=== PATIENT | female | born 1975 | race Caucasian/White ===

== ENCOUNTER 2020-09-19 09:43 | Outpatient (NON) | payer OTHER, SELFPAY ==
[2020-09-19 23:47] LABS: SARS-CoV-2 RNA PCR Positive
== END 2020-09-19 09:44 ==
LOC: ANHCOVIDDT 09:46
PROVIDERS: PCP Family Medicine; Visit Provider Family Medicine
DX: U07.1 COVID-19 (principal)
CPT/HCPCS: 87635; C9803; U0003

== ENCOUNTER 2020-10-21 16:09 | Emergency (ER) | payer OTHER, SELFPAY ==
[2020-10-21] VITALS (9 sets, daily range): BP systolic 139–147; BP diastolic 74–97; PULSE 69–87; RESP 10–26; TEMP 37.3; O2SAT 95–100
--- NOTE | ~2020-10-21 | CT_ITS ---
EXAMINATION: CT abdomen pelvis wo con EXAM DATE: 10/21/2020 17:11 INDICATION: Left flank pain. TECHNIQUE: Spiral CT of the abdomen and pelvis was performed without contrast. Axial, coronal and sag ittal images were reviewed. The dose-length product (DLP) for this examination was 924.47 mGy-cm. T he exposure was tailored according to patient size (auto mA exposure control), and iterative reconstr uction (ASIR) was used as additional dose reduction technique. Comparison is made to prior examinatio n from 05/06/2018. FINDINGS: There is a 4 mm stone at the left ureterovesicular junction with mild left-sided hydrourete ronephrosis. No other genitourinary calcifications. The uterus is not identified and has likely been surgically resected. The bladder is undistended at time of imaging. The liver, spleen, adrenal gla nds and pancreas are unremarkable. Gallbladder is unremarkable. No biliary obstruction. There is n o retroperitoneal or pelvic lymphadenopathy. The appendix is normal. There is small sliding gastroesophageal hiatal hernia. There is expected am ount of colonic stool. No free intraperitoneal gas. The heart is normal in size. There are no pe ricardial or pleural effusions. The lung bases are unremarkable. There are no osteoblastic or osteo lytic lesions identified. L5-S1 anterior, interbody fusion. IMPRESSION: Left UVJ 4 mm stone, mild hydroureteronephrosis. Urologist consultants would appreciate K UB as baseline for follow-up, treatment planning. Reviewed, dictated and finalized at location A. ER COOK IMPRESSION: Left UVJ 4 mm stone, mild hydroureteronephrosis. Urologist consulta nts would appreciate KUB as baseline for follow-up, treatment planning.
--- NOTE | 2020-10-21 16:40 | PC.NURSE ---
patient brought back to ED room 6 with c/o left flank pain for 1 hours. see initial assessment. alert. oriented. sitting on stretcher. in room. denies known fever at home. denies N/V/D. did have some dry heaves per patient. assessments done. history reviewed. this RN attempted IV access x 1 without success. patient and aware will have another RN attempt. call light in reach. on Bp and O2 monitors.
[2020-10-21] MEDS: PROCHLORPERAZINE EDISYLATE 10 MG/2 ML VIAL IV PUSH (17:01)
[2020-10-21] MEDS: FAMOTIDINE 20 MG/2 ML VIAL IV PUSH (17:01)
[2020-10-21] MEDS: SODIUM CHLORIDE 0.9% IV 1,000 ML 999 ML IV CONT (17:01)
[2020-10-21 17:04] LABS: Basophils Absolute Auto 0.1 K/mm3 (0.0-0.1); Basophils Percent Auto 0.6 % (0.2-1.2); Eosinophils Absolute Auto 0.1 K/mm3 (0-0.3); Hemoglobin 14.9 g/dL (12.0-15.0); Immature Granulocyte Absolute 0.02 K/mm3 (0.00-0.031); Immature Granulocyte Percent A 0.2 % (0-0.5); Lymphocytes Absolute Auto 2.14 K/mm3 (0.9-3.2); Lymphocytes Percent Auto 24.3 % (18.3-44.2); Mean Corpuscular HGB Conc 33.9 g/dl (32-36); Mean Corpuscular Hemoglobin 29.8 pg (26-34); Mean Platelet Volume 11.9 fl (7.4-10.4); Monocytes Absolute Auto 0.7 K/mm3 (0.1-0.6); Monocytes Percent Auto 8.2 % (2.6-8.5); Neutrophils Absolute Auto 5.8 K/mm3 (1.3-6.7); Neutrophils Percent Auto 65.7 % (45.5-73.1); Platelet Count Result 267 k/mm3 (150-375); White Blood Count 8.8 K/mm3 (4.5-10.0)
--- NOTE | 2020-10-21 17:14 | ED.ABDPAIN ---
HPI - Abdominal Pain General Chief Complaint: Abdominal Pain <Thom Shah PA-C - Last Filed: 10/21/20 18:52> Stated Complaint: lt flank and back pain <Thom Shah PA-C - Last Filed: 10/21/20 18:52> Time Seen by Provider: 10/21/20 16:20 <Thom Shah PA-C - Last Filed: 10/21/20 18:52> Source: patient <Thom Shah PA-C - Last Filed: 10/21/20 18:52> Mode of arrival: ambulatory <Thom Shah PA-C - Last Filed: 10/21/20 18:52> Limitations: no limitations <Thom Shah PA-C - Last Filed: 10/21/20 18:52> History of Present Illness HPI narrative: Patient is a 45-year-old female who presents to emergency department for evaluation of acute onset of left flank pain patient notes that she earlier in the week and had a similar occurrence that resolved spontaneously patient notes sharp stabbing pain nothing is made it better or worse patient notes dry retching patient has not taken anything for her symptoms patient denies sick contacts or other symptoms and on arrival appears uncomfortable but in no distress <Thom Shah PA-C - Last Filed: 10/21/20 18:52> Related Data Allergies/Adverse Reactions: Allergies Allergy/AdvReac Type Severity Reaction Status Date / Time Penicillins Allergy Unknown Hives Verified 10/21/20 16:15 codeine AdvReac Unknown Palpitation Verified 10/21/20 16:15 s ondansetron AdvReac Unknown violent Verified 10/21/20 16:15 vomiting <Thom Shah PA-C - Last Filed: 10/21/20 18:52> Review of Systems Review of Systems: All systems reviewed & are unremarkable except as noted in HPI and below <Thom Shah PA-C - Last Filed: 10/21/20 18:52> [facility] Past Medical History Medical History: Medical History Fibromyalgia <Thom Shah PA-C - Last Filed: 10/21/20 18:52> Family History Family History: Family History (Updated 12/08/17 @ 18:12 by DOCTOR UNKNOWN) Father Hypertension <Thom Shah PA-C - Last Filed: 10/21/20 18:52> Social History Social History: Social History Smoking status: Former smoker Smoking end date: 11/02/11 Alcohol intake: current Gender identity (if verbalized by the patient): Female <Thom Shah PA-C - Last Filed: 10/21/20 18:52> Exam Narrative: Exam Narrative: GENERAL: Well-appearing, obese, uncomfortable and in no acute distress. HEAD: Normocephalic, atraumatic. EYES: PERRLA and EOMI. ENT: Nares clear, no rhinorrhea or epistaxis. Mucous membranes moist. CHEST: Clear to auscultation. No respiratory distress. No wheezes rales or rhonchi HEART: Regular rate and rhythm. No murmur heard. Normal peripheral pulses. ABDOMEN: Soft, left upper quadrant abdominal tenderness, nondistended EXTREMITIES: Normal range of motion. No edema. SKIN: Warm, dry, no rash. NEURO: No focal deficits. Alert and oriented x3. PSYCH: Normal mood and affect. <Thom Shah PA-C - Last Filed: 10/21/20 18:52> Course Course Emergency Course: Patient presented with flank pain found to have 4 mm UVJ stone pain well controlled afebrile nontoxic-appearing no distress no high risk changes in the blood work felt appropriate for outpatient reevaluation by primary care and urology. Patient agrees with this plan and has also been given reasons to return ABCs stable vital signs intact <Thom Shah PA-C - Last Filed: 10/21/20 18:52> Vital Signs Vital signs: Vital Signs Temperature 99.1 F 10/21/20 16:11 Pulse Rate 87 10/21/20 16:11 Respiratory Rate 20 10/21/20 16:11 Blood Pressure 147/97 H 10/21/20 16:11 Pulse Oximetry 100 10/21/20 16:11 Temperature 99.1 F 10/21/20 16:11 Pulse Rate 69 10/21/20 17:18 Respiratory Rate 10 L 10/21/20 17:18 Blood Pressure 144/74 H 10/21/20 17:18 Pulse Oximetry 98 10/21/20 17:18
[2020-10-21 17:16] LABS: Alanine Aminotransferase 17 U/L (4-35); Albumin Level 4.4 g/dL (3.5-5.1); Alkaline Phosphatase 97 U/L (38-126); Anion Gap 10 mmol/L (8-16); Aspartate Amino Transferase 19 U/L (14-36); Bilirubin,Total 0.8 mg/dL (0.2-1.3); Blood Urea Nitrogen 10 mg/dL (7-17); Calcium 9.9 mg/dL (8.4-10.2); Carbon Dioxide 25 mmol/L (22-30); Chloride 104 mmol/L (98-107); Estimated CRCL calculation 86 ml/min; Estimated Glomerular Filt Rate > 60; Glucose 101 mg/dL (65-105); Lipase 294 U/L (23-300); Potassium 4.1 mmol/L (3.4-5.0); Sodium 139 mmol/L (137-145)
--- NOTE | 2020-10-21 17:19 | PC.NURSE ---
all tests resulted. waiting for further orders from provider. will ask patient for urine specimen.
--- NOTE | 2020-10-21 17:55 | PC.NURSE ---
patient reconnected to monitor. IVF and IV tylenol restarted. patient has #22 in her left wrist. not able to give fluids or meds fast.
[2020-10-21 18:11] LABS: Add Urine Microscopic? YES; Appearance Urine Cloudy (Clear); Bacteria Urine Trace /hpf; Bilirubin Urine Negative (Negative); Blood Urine 2+ (Negative); Calcium Oxalate Crystals Urine Present /hpf; Color Urine Yellow (Yellow); Glucose Urine UA Negative (Negative); Ketones Urine Negative (Negative); Leukocyte Esterase Ur Negative LEU/UL (Negative); Mucus Urine Rare /lpf; Nitrate Urine Negative (Negative); Protein Urine 1+ mg/dL (Negative); RBC Urine 51-75 /hpf (0-2); Specific Grav Ur 1.024 (1.001-1.035); Squamous Epithelial Cell Urine Many /hpf (Few); Urobilinogen Urine Negative mg/dL (<2.0); WBC Urine 0-3 /hpf
[2020-10-21] MEDS: KETOROLAC 30 MG/ML VIAL (*BKC) IV PUSH (18:42)
== END 2020-10-21 19:22 | disposition home or self-care (01) ==
PROVIDERS: Emergency Medicine Emergency Medical Services; Emergency Provider General Practice; PCP Family Medicine
DX: N13.2 Hydronephrosis with renal and ureteral calculous obstruction (principal); M79.7 Fibromyalgia; Z87.891 Personal history of nicotine dependence
CPT/HCPCS: 36415; 74176; 80053; 81001; 83690; 85025; 96361; 96365; 96375; 99284; J0131; J0780; J1885; J7030

== ENCOUNTER 2021-03-07 08:49 | Outpatient (CLI) | payer OTHER, SELFPAY ==
--- NOTE | ~2021-03-07 | MMUS_ITS ---
EXAMINATION: MM diagnostic jolynn BI w guanako, US breast RT limited HISTORY: Follow-up right breast asymmetry TECHNIQUE: Additional 3-D tomosynthesis images of the right breast were performed and synthetic 2-D i mages were generated. CAD analysis was submitted and interpreted. High resolution Limited right breas t ultrasound was performed. COMPARISON: Comparison to multiple prior studies sequentially, with oldest reviewed study dated 09/03. BREAST PARENCHYMAL COMPOSITION: Breast composed of scattered areas of fibroglandular density. FINDINGS: MAMMOGRAPHIC FINDINGS: There is a focal asymmetry in the upper outer quadrant of the right breast anteriorly. The left breas t is stable without evidence for malignancy. ULTRASOUND: Limited right breast ultrasound: At 11:00, 2 cm from the nipple there is a 5 mm cyst corresponding to the asymmetry seen on mammography. No suspicious masses to suggest malignancy. IMPRESSION: 1. No evidence for malignancy in the right breast. 2. Routine yearly screening mammogram and regular clinical breast examination are recommended. BI-RADS Category 2: Benign finding(s). Reviewed, dictated and finalized at location A. IMPRESSION: 1. No evidence for malignancy in the right breast. 2. Routine yearly screening mammogram and regular clinical breast examination a re recommended. BI-RADS Category 2: Benign finding(s).
== END 2021-03-07 08:50 | disposition home or self-care (01) ==
PROVIDERS: PCP Family Medicine; Visit Provider Family Medicine
DX: N64.4 Mastodynia (principal)
CPT/HCPCS: 76642; 77062; 77066; G0279

== ENCOUNTER 2023-02-26 09:05 | Outpatient (CLI) | payer BC, SELFPAY ==
--- NOTE | ~2023-02-26 | MM_ITS ---
EXAMINATION: MM screening jolynn BI w guanako HISTORY: Screening mammogram TECHNIQUE: Craniocaudal and mediolateral oblique 3-D tomosynthesis images were obtained and synthetic 2-D images were generated. CAD analysis was submitted and interpreted. COMPARISON: 03/07/2021 diagnostic bilateral mammogram and limited right breast ultrasound examination 12/18/2017 right diagnostic mammogram and limited right breast ultrasound examination 12/15/2017 bilateral screening mammogram BREAST PARENCHYMAL COMPOSITION: There are scattered areas of fibroglandular density. FINDINGS: Occasional up to 4.9 mm circumscribed opacities in the left breast, particularly in the jaz tral and lateral lower left breast, measuring 5 mm or less, some with halo sign, benign in appearance . There is no evidence of suspicious mass, calcification, or architectural distortion to suggest jannie gnancy in either breast. There has been no suspicious interval change. IMPRESSION: 1. No mammographic evidence of malignancy. 2. Recommend routine screening mammography in one year. BI-RADS Category 2: Benign finding(s). Reviewed, dictated and finalized at location A.
== END 2023-02-26 09:06 | disposition home or self-care (01) ==
LOC: ANHIMG 09:09
PROVIDERS: PCP Nurse Practitioner Family; Visit Provider Nurse Practitioner Family
DX: Z12.31 Encounter for screening mammogram for malignant neoplasm of breast (principal)
CPT/HCPCS: 77063; 77067

== ENCOUNTER 2023-04-15 16:57 | Outpatient (CLI) | payer BC, SELFPAY ==
--- NOTE | ~2023-04-15 | US_ITS ---
EXAMINATION: US carotid duplex BI DATE: 04/15/2023 INDICATION: Dizziness and giddiness TECHNIQUE: Grayscale, color Doppler, and pulsed Doppler images of the cervical carotid arteries were obtained. The degree of vessel stenosis is placed in one of the following categories: normal, <50%, 5 0-69%, >=70% but less than near-occlusion, near-occlusion, or total occlusion. Note that percent sten osis relative to normal distal artery lumen diameter is indirectly measured from velocity measurement s as described by Taqueria, et al. Radiology 2003; 229:340-346. Notes: Normal: Peak systolic velocity <125 centimeters/sec and no plaque <50%. Peak systolic velocity <125 ( EDV <40; ICA/CCA PSV ratio <2.0; used these factors only a tandem lesions or low cardiac output or co ntralateral disease) 50-69 %: PSV 125-230 (EDV 40-100; ratio 2-4) >= 70% but less than near occlusion: PSV greater than 230 (EDV > 100; ratio> 4.0) Near Occlusion: PSV that is variable; markedly narrowed lumen Occlusion: Absent flow on color/spectral Doppler and no lumen on mott scale. COMPARISON: None. FINDINGS: RIGHT: The right common carotid artery (CCA) peak systolic velocity (PSV) is 115 cm/s. The right internal ca rotid artery (ICA) PSV is 80 cm/s. The right ICA end-diastolic velocity (EDV) is 34 cm/s. The right I CA/CCA PSV ratio is 0.7. The external carotid artery (ECA) PSV is 95 cm/s. There is antegrade flow in the right vertebral artery. LEFT: The left CCA PSV is 120 cm/s. The left ICA PSV is 65 cm/s. The left ICA EDV is 29 cm/s. The left ICA/ CCA PSV ratio is 0.5. The ECA PSV is 84 cm/s. There is antegrade flow in the left vertebral artery. IMPRESSION: 1. Less than 50% stenosis in the right internal carotid artery by sonographic criteria. 2. Less than 50% stenosis in the left internal carotid artery by sonographic criteria. Reviewed, dictated and finalized at location L. IMPRESSION: 1. Less than 50% stenosis in the right internal carotid artery by sonographic junior faria. 2. Less than 50% stenosis in the left internal carotid artery by sonographic vishal ellsworth.
== END 2023-04-15 16:58 | disposition home or self-care (01) ==
LOC: ANHIMG 16:58
PROVIDERS: PCP Nurse Practitioner Family; Visit Provider Nurse Practitioner Family
DX: R42 Dizziness and giddiness (principal); R00.2 Palpitations; I65.23 Occlusion and stenosis of bilateral carotid arteries
CPT/HCPCS: 93880

== ENCOUNTER 2023-12-17 06:37 | Outpatient (CLI) | payer BC, SELFPAY ==
--- NOTE | ~2023-12-17 | MR_ITS ---
EXAMINATION: MR brain/brain stem wo/w con DATE: 12/17/2023 07:44 INDICATION: Left facial numbness. Left upper extremity numbness. Migraine headache. TECHNIQUE: Magnetic resonance imaging (MRI) of the brain and brainstem was performed without and with 20 mL MultiHance intravenous contrast. COMPARISON: Head CT 12/17/2023 FINDINGS: There is no intracranial hemorrhage, acute infarction, or abnormal intracranial mass lesion . The ventricles are normal in size. The paranasal sinuses are clear. The orbits are normal. There is a trace right mastoid effusion. IMPRESSION: 1. Normal brain. Reviewed, dictated and finalized at location A. MBLER BODY IMPRESSION: 1. Normal brain.
--- NOTE | ~2023-12-17 | CT_ITS ---
EXAMINATION: CTA brain carotid DATE: 12/17/2023 08:07 INDICATION: Lightheadedness. Left facial numbness. Migraine headache. TECHNIQUE: Computed tomographic angiography (CTA) of the head was performed without and with 100 mL O mnipaque-350 intravenous contrast. CTA of the neck was performed with intravenous contrast. Automated exposure control and iterative reconstruction technique were employed. The dose-length product was 1 621.28 mGy-cm. Maximum intensity projection and volume rendered 3D-reconstructions were created by bill neville technologist on a separate workstation. COMPARISON: Brain MRI 12/17/2023 FINDINGS: HEAD CTA: There is no intracranial hemorrhage, acute infarction, or abnormal intracranial mass lesion . The ventricles are normal in size. There is mild mucosal thickening in the paranasal sinuses. The m astoid air cells are normal. The orbits are normal. Left vertebral artery is dominant. There is no si gnificant stenosis of basilar artery or the posterior cerebral arteries. The posterior communicating arteries are normal. There is no significant stenosis of the intracranial internal carotid arteries o r anterior or middle cerebral arteries. Anterior communicating artery is normal. There is no aneurysm . NECK CTA: There are no pathologically enlarged lymph nodes. There is no significant stenosis of the v ertebral arteries. There is no visible plaque in the proximal internal carotid arteries. There is 0% stenosis of the proximal right internal carotid artery relative to normal distal artery lumen diamete r (NASCET criteria). There is 0% stenosis of the proximal left internal carotid artery relative to no rmal distal artery lumen diameter. There are changes of anterior fusion procedure at C5-C6. There is mild cervical spondylosis. IMPRESSION: 1. Normal brain. No aneurysm or significant intracranial arterial stenosis. 3. 0% stenosis of the proximal internal carotid arteries relative to normal distal artery lumen diame ters (NASCET criteria). Reviewed, dictated and finalized at location A. INSPECTOR IMPRESSION: 1. Normal brain. No aneurysm or significant intracranial arterial stenosis. 3. 0% stenosis of the proximal internal carotid arteries relative to normal dis alfonzo artery lumen diameters (NASCET criteria).
== END 2023-12-17 06:38 | disposition home or self-care (01) ==
PROVIDERS: PCP Nurse Practitioner Family; Visit Provider Student in an Organized Health Care Education/Training Program
DX: R20.0 Anesthesia of skin (principal)
CPT/HCPCS: 70496; 70498; 70553; A9577; Q9967

== ENCOUNTER 2024-02-08 11:38 | Outpatient (CLI) | payer BC, SELFPAY ==
--- NOTE | ~2024-02-08 | XR_ITS ---
Cervical Spine: AP, lateral, open-mouth views Clinical History: Pain Findings: The normal lordotic curve is maintained. There is anterior fusion from C5 to C6. Remaining disc spaces are preserved. Pre-vertebral soft tissues are unremarkable. Impression: No acute abnormality evident. Anterior fusion from C5 to C6. Reviewed, dictated and finalized at [facility]. Impression: No acute abnormality evident. Anterior fusion from C5 to C6.
--- NOTE | ~2024-02-08 | XR_ITS ---
Left Shoulder Technique: AP and scapular Y views were obtained. Clinical History: Pain Findings: No fracture or dislocation is seen. Osseous alignment is anatomic. The glenohumeral and acr omioclavicular joint spaces are preserved. Soft tissues are unremarkable. Impression: Unremarkable left shoulder radiographs. Reviewed, dictated and finalized at [facility]. Impression: Unremarkable left shoulder radiographs.
== END 2024-02-08 11:39 | disposition home or self-care (01) ==
LOC: ANHIMG 11:42
PROVIDERS: PCP Nurse Practitioner Family; Visit Provider Nurse Practitioner Family
DX: M54.2 Cervicalgia (principal); M25.512 Pain in left shoulder; Z98.1 Arthrodesis status
CPT/HCPCS: 72040; 73030

== ENCOUNTER 2024-03-02 06:32 | Outpatient (CLI) | payer BC, SELFPAY ==
--- NOTE | ~2024-03-02 | MR_ITS ---
MRI of the left shoulder Technique: Axial proton-density fat-sat images, coronal proton density fat-sat and T2 fat-sat images, and sagittal T1-weighted and T2 fat-sat images were acquired. Clinical History: Pain Findings: There is tkeg-jh-ccamhlwc AC joint degenerative change, mild bony productive change. No sig nificant subcarinal spur. Coracoclavicular, coracoacromial, and coracohumeral ligaments are intact. Supraspinatus and infraspinatus tendons are intact, without partial or full-thickness tear. Subscapul justine tendon is intact. Tendon of the long head of the biceps is intact. No labral tear identified. Inferior glenohumeral ligament is intact. There is minimal glenohumeral joint effusion. No significan t degenerative change identified. No fluid distention of the subacromial/subdeltoid bursa. No muscle atrophy or edema. Impression: Cvfl-en-ovdzsvwc AC joint degenerative change. No other significant abnormality identified. Reviewed, dictated and finalized at [facility]. Impression: Heil-oy-ljvwewml AC joint degenerative change. No other significant abnormality identified.
== END 2024-03-02 06:33 | disposition home or self-care (01) ==
PROVIDERS: PCP Nurse Practitioner Family; Visit Provider Nurse Practitioner Family
DX: R20.0 Anesthesia of skin (principal); M19.012 Primary osteoarthritis, left shoulder
CPT/HCPCS: 73221

== ENCOUNTER 2024-04-19 15:26 | Outpatient (CLI) | payer BC, SELFPAY ==
--- NOTE | ~2024-04-19 | MM_ITS ---
EXAMINATION: MM screening jolynn BI w guanako HISTORY: Screening TECHNIQUE: Craniocaudal and mediolateral oblique 3-D tomosynthesis images were obtained and synthetic 2-D images were generated. CAD analysis was submitted and interpreted. COMPARISON: Comparison to multiple prior studies sequentially, with oldest reviewed study dated 12/15. BREAST PARENCHYMAL COMPOSITION: Not dense: There are scattered areas of fibroglandular density. FINDINGS: There is no evidence of suspicious mass, calcification, or architectural distortion to sugg est malignancy in either breast. There has been no suspicious interval change. IMPRESSION: 1. No mammographic evidence of malignancy. 2. Recommend routine screening mammography in one year. BI-RADS Category 1: Negative Reviewed, dictated and finalized at location B.
== END 2024-04-19 15:27 ==
PROVIDERS: PCP Nurse Practitioner Family; Visit Provider Nurse Practitioner Family
DX: Z12.31 Encounter for screening mammogram for malignant neoplasm of breast (principal)
CPT/HCPCS: 77063; 77067

== ENCOUNTER 2024-05-20 09:35 | Outpatient (CLI) | payer BC, SELFPAY ==
--- NOTE | 2024-05-20 12:40 | NEURO_ITS ---
Clinical note: Patient is 48 years old with history of numbness in the left hand since February 2024. There is history of surgery on cervical spine 2015. No history of diabetes mellitus or recent major trauma. On a brief neurological examination no focal muscle wasting or fasciculations were seen in the upper limbs. Summary of findings: 1. Left median and ulnar palmar and digital and radial sensory distal latencies amplitudes and conduction velocities were within normal limits. Left ulnar dorsal sensory distal latency and amplitude within normal limits. 2. Left median motor distal latency amplitude and conduction velocity within normal limits. 3. Left ulnar motor distal latency amplitude and conduction velocity within acceptable normal limits. No focal slowing was seen across the elbow. Ulnar motor inching study was also performed which did not show any focal segmental slowing. 4. Left median and ulnar motor studies were also performed while recording over 2nd lumbrical and interossei where the distal latencies are within acceptable normal limits. 5. EMG and nerve conduction study of the left upper limb were performed using a monopolar needle electrode. No denervation changes were seen In the distribution of C5-T1 cervical roots. Motor unit amplitude and conduction velocity within normal limits. Impression: EMG and nerve conduction study of the left upper limb were within acceptable normal limits. Efren David MD, FAAN, FAANEM Neurology / Electrodiagnostic Medicine Nerve Conduction Studies Motor Nerve Results Latency Amplitude Segment Distance CV CV Site (ms) Norm (mV) Norm (mm) (m/s) Norm Left Median (APB) Motor Wrist 3.3 < 4.2 7.7 > 5.0 Elbow 7.1 - 7.6 - Elbow-Wrist 220 58 > 50 Left Ulnar (ADM) Motor Wrist 2.8 < 4.2 7.0 > 3.0 Bel Elbow 6.2 - 6.3 - Bel Elbow-Wrist 185 54 > 53 Abv Elbow 7.6 - 6.4 - Abv Elbow-Bel Elbow 80 57 > 52 Left Ulnar-Inching (ADM) Motor Wrist 2.8 < 4.2 7.0 > 3.0 Sensory Nerve Results Latency (Peak) Amplitude (P-P) Segment Distance CV CV Site (ms) Norm (?V) Norm (mm) (m/s) Norm Left Dorsal Ulnar Cutaneous Sensory Wrist-Dorsum 5th MC 2.2 - 34 - Wrist-Dorsum 5th MC 80 36 - Left Median DigIII Sensory Wrist-Dig III 3.1 - 135 - Left Median-Ulnar Palmar Sensory Median Palm-Wrist 1.75 < 2.4 72 - Palm-Wrist 80 46 - Ulnar Palm-Wrist 1.75 < 2.4 25 - Palm-Wrist 80 46 - Left Radial Sensory Forearm-Wrist 1.73 < 3.1 34 - Forearm-Wrist 100 58 - Left Ulnar Sensory Wrist-Dig V 3.1 < 3.7 56 > 15 Wrist-Dig V 135 44 > 38 Inter-Nerve Comparisons Nerve 1 Value 1 Nerve 2 Value 2 Parameter Result Normal Sensory Sites L Median Palm-Wrist 1.8 ms L Ulnar Palm-Wrist 1.8 ms Peak Lat Diff 0.00 ms <0.30 Nerve Conduction Studies Stim Site NR Onset (ms) O-P Amp (mV) Site1 Site2 Delta-0 (ms) Dist (mm) Praful (m/s) Left General Motor (Lum 2/Int 2) Median 2.8 3.8 Ulnar 2.7 7.6 Electromyography Side Muscle Nerve Ins Act Fibs Psw Amp Dur Recrt Comment Left Deltoid Axillary Nml Nml Nml Nml Nml Nml Left Biceps Musculocut Nml Nml Nml Nml Nml Nml Left Triceps Radial Nml Nml Nml Nml Nml Nml Left Ext Digitorum Radial (Post Int) Nml Nml Nml Nml Nml Nml Left ExtCarUln Radial (Post Int) Nml Nml Nml Nml Nml Nml Left Ext Indicis Radial (Post Int) Nml Nml Nml Nml Nml Nml Left FlexPolLong Median (Ant Int
== END 2024-05-20 09:36 | disposition home or self-care (01) ==
PROVIDERS: PCP Nurse Practitioner Family; Visit Provider Psychiatry & Neurology Neurology
DX: R20.2 Paresthesia of skin (principal)
CPT/HCPCS: 95886; 95910

== ENCOUNTER 2024-05-20 09:36 | Outpatient (CLI) | payer BC, SELFPAY ==
--- NOTE | ~2024-05-20 | MR_ITS ---
MRI of the cervical spine Clinical History: Paresthesia Technique: Axial T2-weighted and gradient images, and sagittal T1-weighted, T2-weighted, and STIR leti ges were acquired. Findings: There is straightening of normal cervical lordosis. No fracture or subluxation seen. There is interbody/anterior fusion from C5 to C6 with associated susceptibility artifact. No other bone mar row signal abnormality seen. At C2-C3, there is no disc bulge or herniation. No spinal canal stenosis. There is mild facet hypertr ophy is probable minimal bilateral neural foraminal narrowing. At C3-C4, there is minimal disc osteophyte complex. No spinal canal stenosis or cord compression. Pos sible minimal bilateral neural foraminal narrowing. At C4-C5, there is minimal disc osteophyte complex. No spinal canal stenosis, cord compression, or de finite neural foraminal narrowing. At C5-C6, there is mild osteophyte posteriorly, no daniel canal stenosis or cord compression. Left danielle ral foramen is narrowed. Right neural foramen probably preserved. At C6-C7, there is no disc bulge or herniation. There is left foraminal osteophyte, with left neural foraminal narrowing. Right neural foramen preserved. No central canal stenosis or cord compression. No abnormal signal seen in the spinal cord. Paravertebral soft tissues are unremarkable. Impression: Degenerative changes, as detailed above, overall mild in degree. Probable left neural foraminal narro wing at C6-C7. Probable minimal bilateral neural foraminal narrowing at C2-C3 and C3-C4. Probable lef t neural foraminal narrowing at C5-C6. Reviewed, dictated and finalized at [facility]. Impression: Degenerative changes, as detailed above, overall mild in degree. Probable left neural foraminal narrowing at C6-C7. Probable minimal bilateral neural foramina l narrowing at C2-C3 and C3-C4. Probable left neural foraminal narrowing at C5- C6.
== END 2024-05-20 09:37 | disposition home or self-care (01) ==
PROVIDERS: PCP Nurse Practitioner Family; Visit Provider Nurse Practitioner Family
DX: M54.12 Radiculopathy, cervical region (principal); R20.0 Anesthesia of skin; R20.2 Paresthesia of skin; M50.30 Other cervical disc degeneration, unspecified cervical region
CPT/HCPCS: 72141

== ENCOUNTER 2024-09-02 14:34 | Outpatient (CLI) | payer BC, SELFPAY ==
--- NOTE | ~2024-09-02 | XR_ITS ---
XR cervical spine 4-5V DATE: 09/02/2024 15:03 INDICATION: Cervical radiculopathy TECHNIQUE: COMPARISON: None FINDINGS: There is straightening of the cervical spine. Approximately 1.4 mm anterolisthesis at C2-3, 1.0 mm anterolisthesis at C3-4 and 1.6 mm anterolisthes is at C4-5 in flexion, reduced at all 3 levels in extension. Status post anterior interbody surgical fusion at C5-6. C1 and C2 are normally aligned and the odontoid process is intact. No fracture or dislocation or lock ed facet or prevertebral soft tissue swelling. IMPRESSION: Minimal anterolisthesis at C2-3, C3-4 and C4-5 in flexion, reduced in extension Status post anterior interbody surgical fusion at C5-6 Reviewed, dictated and finalized at location A.
== END 2024-09-02 14:35 | disposition home or self-care (01) ==
PROVIDERS: PCP Nurse Practitioner Family; Visit Provider Neurological Surgery
DX: M54.12 Radiculopathy, cervical region (principal); Z98.1 Arthrodesis status
CPT/HCPCS: 72050

== ENCOUNTER 2024-10-13 08:38 | Outpatient (CLI) | payer BC, SELFPAY ==
--- NOTE | ~2024-10-13 | US_ITS ---
Limited Abdominal Sonogram: Real-time sonographic imaging of the right upper quadrant was performed. Clinical History: Right upper quadrant pain Findings: The liver appears normal with no evidence of mass lesion or bile duct dilatation. Main por alfonzo vein demonstrates normal direction of flow. The gallbladder is well distended, and appears normal with no evidence of gallstone or wall thickening. The common bile duct measures 4 mm. The visualize d pancreas, aorta, and IVC are unremarkable. Impression: No significant abnormality seen. Reviewed, dictated and finalized at location M. LER AND TEST PREPARER Impression: No significant abnormality seen.
== END 2024-10-13 08:39 | disposition home or self-care (01) ==
LOC: GOSHIMG 08:38
PROVIDERS: PCP Nurse Practitioner Family; Visit Provider Nurse Practitioner Family
DX: R10.11 Right upper quadrant pain (principal)
CPT/HCPCS: 76705

== ENCOUNTER 2024-11-04 07:01 | Outpatient (CLI) | payer BC, SELFPAY ==
--- NOTE | ~2024-11-04 | NM_ITS ---
EXAMINATION: NM hepatobiliary w pharm DATE: 11/04/2024 09:28 INDICATION: Epigastric abdominal pain. COMPARISON: CT abdomen and pelvis 10/21/2020 TECHNIQUE: 4.9 mCi Tc-99m mebrofenin (Choletec) was administered intravenously. Scintigraphic images of the abdomen were obtained for one hour. Then, 2.2 mcg sincalide (Kinevac) IV was administered, an d imaging was continued for 30 minutes. FINDINGS: There is normal clearance of radiotracer from the blood pool. There is homogeneous tracer u ptake by the liver. Activity progresses to the bowel and gallbladder. Gallbladder ejection fraction (GBEF) was 61%. Note that most patients with gallbladder dysfunction have GBEF < 35%, which overlaps with the broad normal range of 10-90%. IMPRESSION: 1. Normal hepatobiliary scintigraphy. Reviewed, dictated and finalized at location A. EMBROIDERER
== END 2024-11-04 07:02 | disposition home or self-care (01) ==
PROVIDERS: PCP Nurse Practitioner Family; Visit Provider Surgery
DX: R10.13 Epigastric pain (principal)
CPT/HCPCS: 78227; A9537; J2805

== ENCOUNTER 2024-11-14 08:01 | Outpatient (CLI) | payer BC, SELFPAY ==
--- NOTE | ~2024-11-14 | XR_ITS ---
EXAMINATION: XR UGIAC wo kub DATE: 11/14/2024 08:44 INDICATION: Epigastric abdominal pain. TECHNIQUE: The patient drank thick barium, gas-producing crystals, and thin barium. Fluoroscopy of th e esophagus, stomach, and proximal small bowel was performed. Fluoroscopy exposure time was 0.6 minut es. The total number of images was 280. Total dose-area product was 1.876 Gy-cm^2. COMPARISON: CT abdomen and pelvis 10/21/2020 FINDINGS: There is no mass or stricture of the esophagus. Esophageal motility is normal. There is a s mall sliding hiatal hernia. There was gastroesophageal reflux with provocative maneuvers. The stomach and proximal small bowel show normal folding patterns. IMPRESSION: 1. Small sliding hiatal hernia. 2. Gastroesophageal reflux with provocative maneuvers. Reviewed, dictated and finalized at location [] SIT DRIVER
== END 2024-11-14 08:02 | disposition home or self-care (01) ==
PROVIDERS: PCP Nurse Practitioner Family; Visit Provider Surgery
DX: R10.13 Epigastric pain (principal); K44.9 Diaphragmatic hernia without obstruction or gangrene; K21.9 Gastro-esophageal reflux disease without esophagitis
CPT/HCPCS: 74246

== ENCOUNTER 2025-01-20 12:14 | Outpatient (CLI) | payer BC, SELFPAY ==
--- NOTE | ~2025-01-20 | XR_ITS ---
XR chest 2V Ordering provider: Zachary Melara MD History: 49 years Female with . K44.9 - Diaphragmatic hernia without obstruction or gangrene . Comparison: August FINDINGS: MEDIASTINUM: The cardiac silhouette is not enlarged. LUNGS: No infiltrates, effusions or pneumothorax. OTHER: No free air under the diaphragm. IMPRESSION: No acute cardiopulmonary pathology. Reviewed, dictated and finalized at location A.
--- NOTE | 2025-01-20 12:22 | ECG_ITS ---
Test Date: 2025-01-20 13:01:40 Measurements Intervals [place] Rate: 62 P: -12 IA: 168 QRS: 7 QRSD: 87 T: 0 QT: 404 QTc: 413 Interpretive Statements SINUS RHYTHM LOW QRS VOLTAGE IN PRECORDIAL LEADS [QRS DEFLECTION < 1.0 mV IN CHEST LEADS] No previous ECG available for comparison Electronically Signed On 01-20-2025 18:37:11 CDT by Ella Oliver M.D.
--- OUTSIDE RECORDS SUMMARY | 2025-01-20 13:01 | XMS_ITS | Clinical Summary ---
Author Organization [facility] Address [address] [place] [address] Care Team Providers Care Superintendent General Name Role Phone Nancy Baker NP Primary Care Provider [phone] Allergies Active Allergy Reactions Criticality Noted Date Comments Codeine Palpitations Low 11/23/2024 Penicillins Hives Medium 11/23/2024 Ondansetron Vomiting Low 11/23/2024 Medications citalopram (CeleXA) 20 mg tablet Take 1.5 tablets (30 mg total) by mouth daily 5 Active Aimovig Autoinjector 140 mg/mL auto-injector ADMINISTER 1 ML UNDER THE SKIN MONTHLY 5 Active gabapentin (NEURONTIN) 300 mg capsule Take 1 capsule (300 mg total) by mouth 2 (two) times a day [address] (PROTONIX) 40 mg EC tablet Take 1 tablet (40 mg total) by mouth 2 (two) times a day 4 Active Encounters Date Type Department Care Team Description 11/30/2024 12:15 PM PROGRAMMER ANALYST CONSULTANT - 11/30/2024 11:59 PM PROGRAMMER ANALYST CONSULTANT Hospital Encounter [facility] [place] [address] [address] Hiatal hernia Discharge Disposition: Discharge to home or self care 11/23/2024 Telephone [facility] [place] [address] [address] Sonya Ramirez RN from Last 3 Months Surgical History Surgery Date Site/Laterality Comments COLONOSCOPY UPPER GASTROINTESTINAL ENDOSCOPY HYSTERECTOMY SECTION SPINAL FUSION x 2 TONSILECTOMY, ADENOIDECTOMY, BILATERAL MYRINGOTOMY AND TUBES PLANTAR FASCIA SURGERY Medical History Medical History Date Comments GERD (gastroesophageal reflux disease) Colon polyp Irritable bowel syndrome Fibromyalgia Depression Hiatal hernia Social History Tobacco Use Types Packs/Day Years Used Date Smoking Tobacco: Former Cigarettes Tobacco Cessation:Counseling Given: Not Answered Personal Safety Answer Date Recorded Have you ever been in or are you currently in a harmful physical or emotional relationship or is someone making you feel afraid or unsafe? Denies 11/30/2024 Comments Unknown Sex and Gender Information Value Date Recorded Sex Assigned at Not on file Legal Sex Female 1:47 PM PROGRAMMER ANALYST CONSULTANT Gender Identity Not on file Sexual Orientation Not on file Obstetrics History Last Filed Vital Signs Vital Sign Reading Time Taken Comments Blood Pressure 151/77 11/30/2024 12:54 PM PROGRAMMER ANALYST CONSULTANT Pulse 76 11/30/2024 12:54 PM PROGRAMMER ANALYST CONSULTANT Temperature - - Respiratory Rate 20 11/30/2024 12:54 PM PROGRAMMER ANALYST CONSULTANT Oxygen Saturation - - Inhaled Oxygen Concentration - - Weight 113.4 kg (250 lb) 11/30/2024 12:54 PM PROGRAMMER ANALYST CONSULTANT Height 167.6 cm (5' 6 ) 11/30/2024 12:54 PM PROGRAMMER ANALYST CONSULTANT Body Mass Index 40.35 11/30/2024 12:54 PM PROGRAMMER ANALYST CONSULTANT Plan of Treatment Health Maintenance Due Date Last Done Comments Breast Cancer Screening-Mammogram 1974 Colon Cancer Screening-Colonoscopy 1974 Depression Screening 1974 Hepatitis C Screening 1974 DTaP/Tdap/Td Vaccine (1 - Tdap) 1985 Hepatitis B Screening 1992 Regular Well Visit/Exam 18-64 1992 Covid-19 Vaccine ( - 2023-2 5 season) 2024 12/28/2021, 02/01/2021, 01/11/2021 Influenza Vaccine (#1) 2024 Zoster Vaccine (1 of 2) 2024 Pneumococcal vaccine <65 Aged Out No longer eligible based on patient's age to complete this topic Procedures Procedure Name Priority Date/Time Associated Diagnosis Comments HIGH RESOLUTION ESOPHAGEAL MOTILITY (MANOMETRY) Routine 11/30/2024 2:14 PM PROGRAMMER ANALYST CONSULTANT Hiatal hernia from Last 3 Months Results * High resolution esophageal motility (manometry) - (11/30/2024 2:14 PM PROGRAMMER ANALYST CONSULTANT) Anatomical Region Laterality Modality Other Zachary Melara MD GI LAB PROCEDURE ORDERABLES F inal Result from Last 3 Months Insurance [employer] ACCESS [employer] Care Teams Superintendent General Relationship Specialty Start Date End Date Nancy Baker NP [address] [place] [id number] PCP - General Nurse Practitioner 11/30/24
--- OUTSIDE RECORDS SUMMARY | 2025-01-20 13:01 | XMS_ITS | Referral Summary ---
Author Organization [facility] Address [address] [place] [address] Care Team Providers Care Oncology Nurse Navigator Name Role Phone Nancy Baker NP Primary Care Provider [phone] Encounters Date Type Department Care Team Description 11/30/2024 12:15 PM COLLAR STITCHER - 11/30/2024 11:59 PM COLLAR STITCHER Hospital Encounter [facility] [address] [address] Hiatal hernia Discharge Disposition: Discharge to home or self care 11/23/2024 Telephone [facility] [place] [phone] [phone] Sonya Ramierz RN from Last 3 Months Allergies Active Allergy Reactions Criticality Noted Date [...] 2 (two) times a day 4 Active Social History Tobacco Use Types Packs/Day Years [...] on file Legal Sex Female 1:47 PM COLLAR STITCHER Gender Identity Not on file Sexual Orientation Not on file Last Filed Vital Signs Vital Sign Reading Time Taken Comments Blood Pressure 151/77 11/30/2024 12:54 PM COLLAR STITCHER Pulse 76 11/30/2024 12:54 PM COLLAR STITCHER Temperature - - Respiratory Rate 20 11/30/2024 12:54 PM COLLAR STITCHER Oxygen Saturation - - Inhaled Oxygen Concentration - - Weight 113.4 kg (250 lb) 11/30/2024 12:54 PM COLLAR STITCHER Height 167.6 cm (5' 6 ) 11/30/2024 12:54 PM COLLAR STITCHER Body Mass Index 40.35 11/30/2024 12:54 PM COLLAR STITCHER Plan of Treatment Not on file Procedures Procedure Name Priority Date/Time Associated Diagnosis Comments HIGH RESOLUTION ESOPHAGEAL MOTILITY (MANOMETRY) Routine 11/30/2024 2:14 PM COLLAR STITCHER Hiatal hernia from Last 3 Months Results * High resolution esophageal motility (manometry) - (11/30/2024 2:14 PM COLLAR STITCHER) Anatomical Region Laterality Modality Other Zachary Melara MD GI LAB PROCEDURE ORDERABLES F inal Result from Last 3 Months Insurance [employer] ACC[employer] ACCESS Care Teams Oncology Nurse Navigator Relationship Specialty Start Date End Date Nancy Baker NP [address] [place] [id number] PCP - General Nurse Practitioner 11/30/24
--- OUTSIDE RECORDS SUMMARY | 2025-01-20 13:01 | XMS_ITS | Clinical Summary ---
Author Organization [facility] Address [facility] [place] [address] Care Team Providers Care Aerospace Quality Engineer Name Role Phone Nancy Baker PACKAGE DELIVERY ROOM SERVICE RUNNER Primary Care Provider Allergies Active Allergy Reactions Criticality Noted Date Comments Codeine Palpitations Low 07/10/2021 Ondansetron Vomiting 12/30/2018 Penicillins Rash Medium 12/30/2018 Medications cyanocobalamin 1000 MCG/ML injection INJECT 1 ML IN THE MUSCLE EVERY 2 WEEKS 06/12/2021 Active pantoprazole EC 40 MG tablet Take 40 mg by mouth every morning. 06/04/2021 Active Family History Relation Status Comments Father Alive Mother Alive Social History Tobacco Use Types Packs/Day Years Used Date Smoking Tobacco: Never Smokeless Tobacco: Never Alcohol Use Standard Drinks/Week Comments Never 0 (1 standard drink = 0.6 oz pur e alcohol) Comments Unknown Sex and Gender Information Value Date Recorded Sex Assigned at Not on file Legal Sex Female 9:52 AM CDT Gender Identity Not on file Sexual Orientation Not on file Last Filed Vital Signs Vital Sign Reading Time Taken Comments Blood Pressure 126/87 07/15/2021 2:10 PM CDT Pulse 70 07/15/2021 2:10 PM CDT Temperature 36.4 C (97.6 F) 07/15/2021 1:53 PM CDT Respiratory Rate 13 07/15/2021 2:10 PM CDT Oxygen Saturation 98% 07/15/2021 2:10 PM CDT Inhaled Oxygen Concentration - - Weight 113.4 kg (250 lb) 07/10/2021 12:09 PM CDT Height 167.6 cm (5' 6 ) 07/10/2021 12:09 PM CDT Body Mass Index 40.35 07/10/2021 12:09 PM CDT Plan of Treatment Health Maintenance Due Date Last Done Comments Annual Physical 1977 Hepatitis C 1992 DTaP, Tdap and Td Vaccines ( 1 - Tdap) 1993 Hepatitis B Vaccines (1 of 3 - 19+ 3-dose series) 1993 Mammogram Screening 2014 COVID-19 Vaccine (3 - 2023-2 5 season) 2024 02/01/2021, 01/11/2021 Influenza Adult (#1) 2024 Zoster Vaccines (1 of 2) 2024 Colorectal Cancer Screening Colonoscopy (10 Years) 07/15/2031 07/15/2021, 07/15/2021 Meningococcal B Vaccine Aged Out No l onger eligible based on patient's age to complete this topic Meningococcal Vaccine Aged Out No karey patrick eligible based on patient's age to complete this topic Pneumococcal Vaccine: Pediatrics (0 to 5 Years) and At-Risk Patients (6 to 64 Years) Aged Out No longer eligible b ased on patient's age to complete this topic RSV Immunizations Under 20 Months Aged Out No longer eligible b ased on patient's age to complete this topic Procedures Procedure Name Priority Date/Time Associated Diagnosis Comments COLONOSCOPY Routine 07/15/2021 1:27 PM CDT from Last 3 Months or Most Recently Relevant to Health Maintenance Results * Colonoscopy (07/15/2021 1:27 PM CDT) Narrative Tony Heller MD - 07/15/2021 1:27 PM CDT Tony Heller MD 07/15/2021 2:08 PM TONY HELLER MD, FACG, FACP COLONOSCOPY and EGD 07/15/2021 EGD INDICATION: GERD. POST-OP: 5 cm hiatal hernia. SEDATION: Per Anesthesia With the patient in the left lateral decubitus position, the Olympus [id number] endoscope was used to easily intubate the esophagus and advanced to the third duodenum. Careful inspection of the mucosa was made upon insertion and withdrawal of the endoscope with retroflexion in the stomach. Findings: Esophagus: SC Jx @ 35 cm. The esophagus is normal. No esophagitis, stricture, mass or Gomez's. Stomach: Fundus, body and antrum normal. No ulceration, erosion, inflammation, AVM or malignancy. Duodenum: Normal in the bulb, second and third duodenum. COLONOSCOPY INDICATION: Personal history of colon polyps. POST-OP: Two polyps removed. PREP: Good. With the patient in the left lateral decubitus position, the Olympus [id number] colonoscope was introduced into the rectum and advanced easily to the Terminal Ileum. Careful inspection of the mucosa was made upon insertion and withdrawal of the endoscope. FINDINGS: Terminal ileum: distal 5 cm normal. Ascending, Transverse, Descending, Sigmoid colon: normal. Cecum: 2 mm sessile polyp removed with cold biopsy forceps without bleed. Rectum including retroflexion: 7 mm sessile polyp removed with cold biopsy forceps without bleed. No masses, AVMs, colitis or diverticulosis seen. No complications, blood loss or implants. ASSESSMENT AND PLAN: A. GERD: - Stable on meds; continue - No esophagitis or Gomez s - Small hiatal hernia; observe B. Two polyps removed: if adenomatous repeat colonoscopy in five years otherwise screening colonoscopy in 10 years. Thank you for allowing me to care for your patient. She will follow-up with Dr. Camarena as needed. Tony Heller M.D. Cc: Dr. Kelsey Camarena Tony Heller MD GI PROCEDURE ORDERABLES Fin al Result from Last 3 Months or Most Recently Relevant to Health Maintenance Insurance Care Teams Aerospace Quality Engineer Relationship Specialty Start Date End Date Nancy Baker FNP [address] [place] [phone] PCP - General Nurse Practitioner Family 10/19/24
--- OUTSIDE RECORDS SUMMARY | 2025-01-20 13:01 | XMS_ITS | Clinical Summary ---
Author Organization [facility] Address [address] [facility] [place] [address] Care Team Providers Care Assistant Media Planner Name Role Phone Jose Angel Zuleta MD Primary Care Provider [phone] Source Comments [facility],non-owned Affiliates and Associated Physician Practices is amultiple site organization consisting of ambulatory clinics and hospital sitesin [place], [place], [place]. This disclosure is being madepursuant to the Care Everywhere program and may not contain all information available regarding this patient. Last updated 18.[facility] Allergies Active Allergy Reactions Criticality Noted Date Comments Penicillins Urticaria Medium 12/30/2018 Ondansetron Vomiting 12/30/2018 Medications Be aware that medications may not be up to date on this document. Always verify current medications with the patient. No known medications Social History Tobacco Use Types Packs/Day Years Used Date Smoking Tobacco: Former Smokeless Tobacco: Never Sex and Gender Information Value Date Recorded Sex Assigned at Not on file Gender Identity Not on file Sexual Orientation Not on file Last Filed Vital Signs Vital Sign Reading Time Taken Comments Blood Pressure 126/84 12/30/2018 10:51 AM DINING ROOM HELPER Pulse 74 12/30/2018 10:51 AM DINING ROOM HELPER Temperature 37 C (98.6 F) 12/30/2018 10:51 AM DINING ROOM HELPER Respiratory Rate 16 12/30/2018 10:51 AM DINING ROOM HELPER Oxygen Saturation 96% 12/30/2018 10:51 AM DINING ROOM HELPER Inhaled Oxygen Concentration - - Weight 112.9 kg (249 lb) 12/30/2018 10:51 AM DINING ROOM HELPER Height 167.6 cm (5' 6 ) 12/30/2018 10:51 AM DINING ROOM HELPER Body Mass Index 40.19 12/30/2018 10:51 AM DINING ROOM HELPER Plan of Treatment Health Maintenance Due Date Last Done Comments COLOGUARD (AGES 45-75) - COL ON CA SCREENING 1974 COLON MONITORING 1974 COLONOSCOPY - COLON CA SCREENING 1974 CT COLONOGRAPHY - COLON CA SCREENING 1974 Colorectal Cancer Screening 1974 FIT - COLON CA SCREENING 1974 FLEX SIG - COLON CA SCREENING 1974 LIPID TESTING 1974 MAMMOGRAM 1974 PAP SMEAR 1974 HIV SCREENING 1989 HEPATITIS C SCREENING 08/03/1992 DTAP/TDAP/TD VACCINES (1 - Tdap) 1993 HEPATITIS B VACCINE (1 of 3 - 19+ 3-dose series) 1993 SCREENING FOR DIABETES 12/30/2018 COVID-19 VACCINE (1 - 2023-2 5 season) 2024 INFLUENZA VACCINE (#1) 2024 PNEUMOCOCCAL VACCINE 50+ (1 of 1 - PCV) 2024 ZOSTER VACCINE (1 of 2) 2024 DEPRESSION SCREENING 11/02/2024 HIB VACCINE Aged Out No longer eligi ble based on patient's age to complete this topic HPV VACCINE Aged Out No longer eligi ble based on patient's age to complete this topic MENINGOCOCCAL (Group B) VACC INE SHARED DECISION-MAKING Aged Out No longer eligibl e based on patient's age to complete this topic MENINGOCOCCAL GROUPS A/C/Y/W VACCINE Aged Out No longer eligible b ased on patient's age to complete this topic PNEUMOCOCCAL VACCINE Aged Out No long er eligible based on patient's age to complete this topic Care Teams Assistant Media Planner Relationship Specialty Start Date End Date Jose Angel Zuleta MD [address] [place] [address] PCP - General Family Medicine 12/30/18
[2025-01-20 14:20] LABS: Basophils Percent Auto 0.8 % (0.2-1.2); Eosinophils Absolute Auto 0.1 K/mm3 (0-0.3); Eosinophils Percent Auto 2.2 % (0-4.4); Hematocrit 45.1 % (37.0-47.0); Hemoglobin 14.9 g/dL (12.0-15.0); Lymphocytes Absolute Auto 1.53 K/mm3 (0.9-3.2); Lymphocytes Percent Auto 30.2 % (18.3-44.2); Mean Corpuscular Hemoglobin 30.1 pg (26-34); Mean Corpuscular Volume 91.1 fl (80-100); Mean Platelet Volume 12.2 fl (7.4-10.4); Monocytes Absolute Auto 0.4 K/mm3 (0.1-0.6); Monocytes Percent Auto 7.5 % (2.6-8.5); Neutrophils Percent Auto 59.3 % (45.5-73.1); Platelet Count Result 228 k/mm3 (150-375); Red Blood Count 4.95 M/mm3 (4.2-5.4); Red Cell Distribution Width 12.8 % (11.5-14.5); White Blood Count 5.1 K/mm3 (4.5-10.0)
[2025-01-20 14:24] LABS: Anion Gap 12 mmol/L (4-12); Blood Urea Nitrogen 6 mg/dL (7-17); Calcium 9.2 mg/dL (8.4-10.2); Carbon Dioxide 22 mmol/L (22-30); Chloride 105 mmol/L (98-107); Estimated Glomerular Filt Rate 58; Glucose 95 mg/dL (65-110); Potassium 3.9 mmol/L (3.4-5.0); Sodium 139 mmol/L (137-145)
== END 2025-01-20 12:15 | disposition home or self-care (01) ==
LOC: ANHSURGERY 12:18
PROVIDERS: PCP Nurse Practitioner Family; Visit Provider Surgery
DX: K44.9 Diaphragmatic hernia without obstruction or gangrene (principal)
CPT/HCPCS: 36415; 71046; 80048; 85025; 86850; 86900; 86901; 93005

== ENCOUNTER 2025-01-26 14:48 | Observation (INO) | payer BC, SELFPAY ==
[2025-01-17 09:19] VITALS: BMI 39.4
--- NOTE | 2025-01-17 09:53 | PC.NURSE ---
Report to the Outpatient Waiting Room, entrance under the green pavilion located off [facility], at time _0630 on date _01/25/25 . Planned Procedure Time: _08 .? Time changes happen often and if your time is changed the preop area will call you the afternoon before. - You and your visitor will be asked to self-screen and do not enter if you have any COVID symptoms. Please call surgeon if you need to reschedule. - A mask is optional within the hospital at this time. Patients may have clear liquids (water, carbonated beverages, clear teas, apple juice) until 3 hours prior to surgery with a maximum of 20 ounces. - No food from midnight until time of surgery and no smoking, or chewing tobacco (or any form of nicotine). No chewing gum, candy or mints. - Take only the following medications with a SIP of water on the morning of surgery: ___CITALOPRAM, GABAPENTIN DO NOT STOP ANY OF YOUR OTHER PRESCRIPTION MEDICATIONS PRIOR TO SURGERY EXCEPT THE FOLLOWING Hold all vitamins and supplements for 3 days per anesthesiologist. Medications to discontinue per physician ____N/A-VITAMIN B12 ALREADY HELD BY PT Date to take last dose Please no make-up, nail telugu, hairspray, perfume, deodorant, or body powder the day of surgery.? No jewelry (including any body piercings) or valuables the day of surgery, leave them at home.? Please take a shower or bath the night before, or the morning of, surgery with an antibacterial soap.? Wear comfortable, loose fitting clothing. ?BRING OVERNIGHT BAG FOR ADMISSION AFTER SURGERY/RECOVERY - Jewelry must be removed prior to entering the operating room.? Rings and piercings that are not removed may be cut off. - The hospital will not accept responsibility for valuables.? - Please leave all valuables, including medications, at home the day of surgery. If you are going home after surgery, a licensed racecar driver must drive you home.? - NO public transportation without another adult if you receive anesthesia. - We recommend that an adult stay with you for 24 hours following discharge. - We also recommend that you do not drive, make important decision, drink alcoholic beverages, or take any drugs that were not prescribed by your health care provider for at least 24 hours after your discharge time. Follow any additional instructions given to you from your surgeon. Telephone instructions given to __DAGOBERTO and asked if any additional questions and then verbalized understanding. Patient advised to call surgeon office or pre surgery nurse liaison [phone] if any additional questions.
--- NOTE | 2025-01-24 11:12 | P.HP_ITS ---
H&P: HPI History of Present Illness Date/Time: 01/24/25 11:12 Chief Complaint: Epigastric pain, heartburn Narrative: Patient is a 49-year-old woman who in August started noticing epigastric abdominal pain. This pain would also occur in her right and left upper quadrants. Mostly this was after eating but sometimes happened without having eaten. She had an EGD in 2020 which showed a 5 cm all hiatal hernia. With the epigastric pain she is also noticed increased burning or reflux symptoms. She also has noticed regurgitation of gastric contents on several occasions. She had a gallbladder ultrasound which was normal. She had a HIDA scan which was also normal with an ejection fraction of 61%. Patient had an upper GI which showed a moderate hiatal hernia with spontaneous reflux. She had tried a bit r esolve and Tums but these did not seem to relieve her symptoms pain, heartburn, regurgitation. Since her last office visit with me, she has been on hand appraise all 40 mg twice a day. She is taken to surgery now for robotic laparoscopic repair of hiatal hernia with partial fundoplication. Review of Systems Review of Systems: All systems reviewed & are unremarkable except as noted in HPI and below (HPI) PMFSH Past Medical History Medical History Insomnia Kidney stones IBS (irritable bowel syndrome) Headache, migraine GERD (gastroesophageal reflux disease) Anxiety Fibromyalgia Surgical History Surgical History H/O cervical spine surgery Plantar fasciitis of right foot H/O spinal fusion C4/C5 2015 L5/S1 2015 H/O tubal ligation 2009 Previous delivery, delivered 1999,2007.2009 H/O removal of cyst right breast 2010 History of surgery on left wrist Reconstructive bone placement with k-wires in 1993 [place] teeth extracted 1990 H/O adenoidectomy 1983 History of tonsillectomy 1983 H/O abdominal hysterectomy Family History Family History Father Hypertension Mother Thyroid disorder Sibling Depression Anxiety Grandparent Breast cancer Diabetes mellitus Brain cancer Leukemia Social History Social History Social History: 10/19/24 very confident with medical forms Smoking packs per day: 1 Smoking cigarettes per day: 20.0 Years smoked: 20 Smoking pack-years: 20.00 Smoking status: Former smoker Smoking end date: 11/02/14 Alcohol intake: never Substance use: former Substance use type: marijuana Other substance usage details: Medical, gummies Do You Feel Safe in your Home?: Yes Lack of Transportation: No Lack of Food: Never True Current Housing: I Have Housing Concerned About Future Housing: No Difficulty Paying Gas/Electric Bills: No Difficulty Paying for Meds: No Currently Unemployed: No Education: Trade/Vocational Certificate Difficulty w/ Childcare or Family Care: No Living arrangements: with family Occupation/Education: other Gender identity (if verbalized by the patient): Female Spiritual care concerns: No Agree to blood products: Yes Meds Home Medications and Allergies Home Medications ?Medication ?Instructions ?Recorded ?Confirmed ?Type erenumab-aooe 140 mg/mL 140 mg subcut MONTHLY #1 mL 07/19/24 01/17/25 Rx subcutaneous auto-injector (Aimovig Autoinjector) mecobalamin (vitamin B12) 1,000 1,000 mcg PO DAILY #30 tabs 07/19/24 01/17/25 Rx mcg chewable tablet sumatriptan succinate 50 mg tablet 100 mg (2 x 50 mg) PO ONCE PRN 07/19/24 01/17/25 Rx migraine headache #10 tabs pantoprazole 40 mg tablet,delayed 40 mg PO BID #60 tabs 10/31/24 01/17/25 Rx release (Protonix) citalopram 20 mg tablet 30 mg (1.5 x 20 mg) PO DAILY #135 12/14/24 01/17/25 Rx tabs MEDICAL MARIJUANA 100 mg PO HS PAIN 01/17/25 01/17/25 History gabapentin 300 mg capsule 300 mg PO TID PRN pain 01/17/25 01/17/25 History Allergies Allergy/AdvReac Type Severity Reaction Status Date / Time amoxicillin Allergy Severe Hives Verified 01/17/25 09:52 Penicillins Allergy Unknown Hives Verified 01/17/25 09:52 codeine AdvReac Unknown Palpitation Verified 01/17/25 09:52 s ondansetron AdvReac Unknown violent Verified 01/17/25 09:52 vomiting Exam Const: General: comfortable, no acute distress, alert and awake Nutritional Appearance: obese Orientation/consciousness: patient oriented x3 and No confusion HENMT: Head: normocephalic and atraumatic Mouth: Yes Normal oral and oneida alfonzo mucosa present Eyes: Conjunctivae: conjunctivae normal Pupils: Equal, round and reactive pupils present EOM: EOMs intact bilaterally Neck: Neck: normal visual inspection, no lymphadenopathy and nontender Resp: Effort & Inspection: normal respiratory effort Auscultation: clear to auscultation bilaterally Cardio: Rate: regular rate Rhythm: regular rhythm Heart sounds: no gallops, no murmurs and no rubs GI: Inspection: non-distended and scar (Pfannenstiel) GI Palp: Yes Soft to palpation, No Tenderness to palpation present (GI), No Hepatomegaly present, No Splenomegaly present, No Hernia present and No Palpable mass present Auscultation: normal bowel sounds Skin: Lesions: no lesions Rashes: no rashes Neuro: General: no focal motor deficits and CN's II-XI intact bilaterally Cranial nerves: Yes Equal, round and reactive pupils present, Yes Bilaterally intact EOM present, Yes facial symmetry and Yes Midline tongue present Speech: normal speech Motor exam (neuro): 5/5 motor strength present throughout and Motor abnormalities not present Extrem: General: no clubbing, cyanosis or edema and edema Psych: Affect: normal affect Thought process: Normal thought process present Insight: Good insight present (Psych) Assessment and Plan Assessment and plan (1) Hiatal hernia: Code(s): K44.9 - Diaphragmatic hernia without obstruction or gangrene Status: Chronic Assessment and Plan: After thorough discussion, plan to proceed with robotic laparoscopic repair hiatal hernia with partial fundoplication and fundopexy. I explained the procedure to the patient including the length of the surgery, conduct of the surgery, the usual recovery period and time in the hospital. Risks benefits alternatives were discussed. All questions were answered, she agrees to go a head. (2) GERD (gastroesophageal reflux disease): Qualifiers: Esophagitis presence: esophagitis presence not specified Qualified Code(s): K21.9 - Gastro-esophageal reflux disease without esophagitis Code(s): K21.9 - Gastro-esophageal reflux disease without esophagitis Status: Chronic Assessment and Plan: Associated with hiatal hernia and reflux (3) Epigastric pain: Code(s): R10.13 - Epigastric pain Status: Chronic Assessment and Plan: Due to hiatal hernia, reflux and some obstruction of swallowed food. (4) Morbid obesity: Code(s): E66.01 - Morbid (severe) obesity due to excess calories Status: Chronic (5) Fibromyalgia: Code(s): M79.7 - Fibromyalgia Status: Chronic
[2025-01-25] VITALS (18 sets, daily range): BP systolic 135–162; BP diastolic 65–102; PULSE 56–85; RESP 12–18; TEMP 36.1–37; O2SAT 95–100; BMI 39.5
--- OUTSIDE RECORDS SUMMARY | 2025-01-25 00:50 | XMS_ITS | Clinical Summary ---
Author Organization [facility] Address [facility] [place] [address] Care Team Providers Care Risk Reduction Counselor Name Role Phone Nancy Baker CAGE UNLOADER Primary Care Provider Allergies Active Allergy Reactions [...] the left lateral decubitus position, the Olympus [id number] endoscope was used to easily intubate the [...] the left lateral decubitus position, the Olympus [id number] colonoscope was introduced into the rectum and [...] Relevant to Health Maintenance Insurance Care Teams Risk Reduction Counselor Relationship Specialty Start Date End Date Nancy Baker FNP [address] [place] [id number] PCP - General Nurse Practitioner Family 10/19/24
--- OUTSIDE RECORDS SUMMARY | 2025-01-25 00:50 | XMS_ITS | Clinical Summary ---
Author Organization [facility] Address [address] [place] [address] Care Team Providers Care Numerical Analysis Group Manager Name Role Phone Nancy Baker NP Primary Care Provider [phone] Allergies Active Allergy Reactions Criticality Noted Date [...] Department Care Team Description 11/30/2024 12:15 PM SOX ANALYST - 11/30/2024 11:59 PM SOX ANALYST Hospital Encounter [facility] [place] [address] [address] Hiatal hernia Discharge Disposition: Discharge to home or self care 11/23/2024 Telephone [facility] [place] [address] [address] Sonya Ramirez RN from Last [...] on file Legal Sex Female 1:47 PM SOX ANALYST Gender Identity Not on file Sexual Orientation Not on file Obstetrics History Last Filed Vital Signs Vital Sign Reading Time Taken Comments Blood Pressure 151/77 11/30/2024 12:54 PM SOX ANALYST Pulse 76 11/30/2024 12:54 PM SOX ANALYST Temperature - - Respiratory Rate 20 11/30/2024 12:54 PM SOX ANALYST Oxygen Saturation - - Inhaled Oxygen Concentration - - Weight 113.4 kg (250 lb) 11/30/2024 12:54 PM SOX ANALYST Height 167.6 cm (5' 6 ) 11/30/2024 12:54 PM SOX ANALYST Body Mass Index 40.35 11/30/2024 12:54 PM SOX ANALYST Plan of Treatment Health Maintenance Due Date [...] ESOPHAGEAL MOTILITY (MANOMETRY) Routine 11/30/2024 2:14 PM SOX ANALYST Hiatal hernia from Last 3 Months Results * High resolution esophageal motility (manometry) - (11/30/2024 2:14 PM SOX ANALYST) Anatomical Region Laterality Modality Other Zachary Melara MD GI LAB PROCEDURE ORDERABLES F inal Result from Last 3 Months Insurance [employer] ACCESS [employer] ACCESS Care Teams Numerical Analysis Group Manager Relationship Specialty Start Date End Date Nancy Baker NP [address] [place] [id number] PCP - General Nurse Practitioner 11/30/24
--- OUTSIDE RECORDS SUMMARY | 2025-01-25 00:50 | XMS_ITS | Referral Summary ---
Author Organization [facility] Address [address] [place] [address] Care Team Providers Care Stock Turner Name Role Phone Nancy Baker NP Primary Care Provider [phone] Encounters Date Type Department Care Team Description 11/30/2024 12:15 PM ORACLE DATABASE ANALYST - 11/30/2024 11:59 PM ORACLE DATABASE ANALYST Hospital Encounter [facility] [address] [address] Hiatal hernia Discharge Disposition: Discharge to home or self care 11/23/2024 Telephone [facility] [place] [id number] [id number] Sonya Ramirez RN from Last 3 Months Allergies Active [...] on file Legal Sex Female 1:47 PM ORACLE DATABASE ANALYST Gender Identity Not on file Sexual Orientation Not on file Last Filed Vital Signs Vital Sign Reading Time Taken Comments Blood Pressure 151/77 11/30/2024 12:54 PM ORACLE DATABASE ANALYST Pulse 76 11/30/2024 12:54 PM ORACLE DATABASE ANALYST Temperature - - Respiratory Rate 20 11/30/2024 12:54 PM ORACLE DATABASE ANALYST Oxygen Saturation - - Inhaled Oxygen Concentration - - Weight 113.4 kg (250 lb) 11/30/2024 12:54 PM ORACLE DATABASE ANALYST Height 167.6 cm (5' 6 ) 11/30/2024 12:54 PM ORACLE DATABASE ANALYST Body Mass Index 40.35 11/30/2024 12:54 PM ORACLE DATABASE ANALYST Plan of Treatment Not on file Procedures Procedure Name Priority Date/Time Associated Diagnosis Comments HIGH RESOLUTION ESOPHAGEAL MOTILITY (MANOMETRY) Routine 11/30/2024 2:14 PM ORACLE DATABASE ANALYST Hiatal hernia from Last 3 Months Results * High resolution esophageal motility (manometry) - (11/30/2024 2:14 PM ORACLE DATABASE ANALYST) Anatomical Region Laterality Modality Other Zachary Melara MD GI LAB PROCEDURE ORDERABLES F inal Result from Last 3 Months Insurance [email or web address] ACCESS ANTHEM ACCESS Care Teams Stock Turner Relationship Specialty Start Date End Date Nancy Baker NP [address] [place] [id number] PCP - General Nurse Practitioner 11/30/24
--- OUTSIDE RECORDS SUMMARY | 2025-01-25 00:50 | XMS_ITS | Clinical Summary ---
Author Organization [email or web address] Address [address] [facility] [place] [address] Care Team Providers Care Watch Train Inspector Name Role Phone Jose Angel Zuleta MD Primary Care Provider [phone] Source Comments [email or web address],non-owned Affiliates and Associated Physician Practices is amultiple site organization consisting of ambulatory clinics and hospital sitesin [place], [place], [place] and [place]. This disclosure is being madepursuant to the Care Everywhere program and may not contain all information available regarding this patient. Last updated 18.[email or web address] Allergies Active Allergy Reactions Criticality Noted Date [...] Comments Blood Pressure 126/84 12/30/2018 10:51 AM CATERING COOK Pulse 74 12/30/2018 10:51 AM CATERING COOK Temperature 37 C (98.6 F) 12/30/2018 10:51 AM CATERING COOK Respiratory Rate 16 12/30/2018 10:51 AM CATERING COOK Oxygen Saturation 96% 12/30/2018 10:51 AM CATERING COOK Inhaled Oxygen Concentration - - Weight 112.9 kg (249 lb) 12/30/2018 10:51 AM CATERING COOK Height 167.6 cm (5' 6 ) 12/30/2018 10:51 AM CATERING COOK Body Mass Index 40.19 12/30/2018 10:51 AM CATERING COOK Plan of Treatment Health Maintenance Due Date [...] age to complete this topic Care Teams Watch Train Inspector Relationship Specialty Start Date End Date Jose Angel Zuleta MD [address] [place] [address] PCP - General Family Medicine 12/30/18
[2025-01-25] MEDS: LACTATED RINGERS 1,000 ML 30 ML IV CONT ×2 (07:00→11:58)
--- NOTE | 2025-01-25 07:01 | WPDANESEPPF ---
Anes - Initial Pre Proc Eval Procedure: Operation Date: 01/25/25 08:30 Proposed Procedures p Robotic Repair Hiatal Hernia with Fundoplication - Zachary Melara MD Date/Time: 01/25/25 07:01 Surgeon: Zachary Melara MD Pre Op Diagnosis: hiatal hernia, GERD Patient Data Age: 49 Gender: F Height: 1.68 m Weight: 111 kg Allergies Allergy/AdvReac Type Severity Reaction Status Date / Time amoxicillin Allergy Severe Hives Verified 01/17/25 09:52 Penicillins Allergy Unknown Hives Verified 01/17/25 09:52 codeine AdvReac Unknown Palpitation Verified 01/17/25 09:52 s ondansetron AdvReac Unknown violent Verified 01/17/25 09:52 vomiting Home Medications ?Medication ?Instructions ?Recorded ?Confirmed ?Type erenumab-aooe 140 mg/mL 140 mg subcut MONTHLY #1 mL 07/19/24 01/17/25 Rx subcutaneous auto-injector (Aimovig Autoinjector) mecobalamin (vitamin B12) 1,000 1,000 mcg PO DAILY #30 tabs 07/19/24 01/17/25 Rx mcg chewable tablet sumatriptan succinate 50 mg tablet 100 mg (2 x 50 mg) PO ONCE PRN 07/19/24 01/17/25 Rx migraine headache #10 tabs pantoprazole 40 mg tablet,delayed 40 mg PO BID #60 tabs 10/31/24 01/17/25 Rx release (Protonix) citalopram 20 mg tablet 30 mg (1.5 x 20 mg) PO DAILY #135 12/14/24 01/17/25 Rx tabs MEDICAL MARIJUANA 100 mg PO HS PAIN 01/17/25 01/17/25 History gabapentin 300 mg capsule 300 mg PO TID PRN pain 01/17/25 01/17/25 History Patient hx anesthesia problems: none Family hx anesthesia problems: none Results Review: All pre-operative results and documents have been reviewed as part of the pre-operative evaluation. [facility] Past Medical History Medical History (Updated 01/25/25 @ 07:01 by Volodymyr Tinoco MD) Morbid obesity Insomnia Kidney stones IBS (irritable bowel syndrome) Headache, migraine GERD (gastroesophageal reflux disease) Anxiety Fibromyalgia Surgical History Surgical History H/O cervical spine surgery Plantar fasciitis of right foot H/O spinal fusion C4/C5 2015 L5/S1 2015 H/O tubal ligation 2010 Previous delivery, delivered 1999,2007.2009 H/O removal of cyst right breast 2010 History of surgery on left wrist Reconstructive bone placement with k-wires in 1993 [place] teeth extracted 1990 H/O adenoidectomy 1983 History of tonsillectomy 1983 H/O abdominal hysterectomy Family History Family History Father Hypertension Mother Thyroid disorder Sibling Depression Anxiety Grandparent Breast cancer Diabetes mellitus Brain cancer Leukemia Social History Social History Social History: 10/19/24 very confident with medical forms Smoking packs per day: 1 Smoking cigarettes per day: 20.0 Years smoked: 20 Smoking pack-years: 20.00 Smoking status: Former smoker Smoking end date: 11/02/14 Alcohol intake: never Substance use: former Substance use type: marijuana Other substance usage details: Medical, gummies Do You Feel Safe in your Home?: Yes Lack of Transportation: No Lack of Food: Never True Current Housing: I Have Housing Concerned About Future Housing: No Difficulty Paying Gas/Electric Bills: No Difficulty Paying for Meds: No Currently Unemployed: No Education: Trade/Vocational Certificate Difficulty w/ Childcare or Family Care: No Living arrangements: with family Occupation/Education: other Gender identity (if verbalized by the patient): Female Spiritual care concerns: No Agree to blood products: Yes Anes - Eval Final PreProcedure Day of Procedure 01/25/25 07:01 Patient weight: morbidly obese Heart: regular rate and rhythm Lungs: clear to auscultation Airway: Mallampati scale class II Neurological: alert and oriented Last oral intake: >/= 8 hours ASA classification: IV Emergent: no Anesthetic plan: proceed Anesthesia type and monitoring: general ETT and standard monitoring Results Review: All pre-operative results and documents have been reviewed as part of the pre-operative evaluation. Informed Consent: The patient's anesthetic plan and its attendant risks and benefits were discussed with the patient/family/POA. Questions were solicited and answers provided to the satisfaction of the patient/family/POA.
--- NOTE | 2025-01-25 07:12 | WPDHPUPDATE1 ---
History and Physical Update Update Date/Time: 01/25/25 07:12 History and Physical has been reviewed, including an updated exam of the patient. There are NO changes in the patient's condition. Risks, benefits, and alternatives have been discussed and questions answered. Patient agrees to proceed with procedure.
[2025-01-25] MEDS: ACETAMINOPHEN 500 MG TABLET 1000 MG PO (07:50)
[2025-01-25] MEDS: KETOROLAC 15 MG/ML VIAL (*BKC) IV PUSH (07:50)
[2025-01-25] MEDS: ceFAZolin 2 GM/D5W 50 ML 2 GM/50 ML BAG IVPB (08:12)
[2025-01-25] MEDS: BUPIVACAINE/EPINEPHRINE 0.5% 50 ML VIAL 35 ML INFILTRATE (09:00)
--- NOTE | 2025-01-25 11:59 | W.PM.PROC2 ---
Procedure Note - Detailed Date of Procedure 01/25/25 Pre-op Diagnosis hiatal hernia, GERD Post-op Diagnosis Same Procedure Performed Robotic laparoscopic repair hiatal hernia with partial fundoplication Surgeon Zachary Melara MD Arts Administrator Sosa Martínez MANAGER PROCESS EXCELLENCE Anesthesia General and Local Indications Patient has had epigastric pain heartburn dysphagia and regurgitation. Imaging as well as an EGD showed hiatal hernia. Her upper GI also showed spontaneous reflux. She is taken to surgery now for repair of her hiatal hernia with fundoplication. Findings Hiatal hernia Description of Procedure Patient was taken to surgery and induced into general anesthesia. The abdomen was prepped and draped. The varies needle in the left subcostal area was used to gain access to the peritoneal cavity. Insufflation was carried out. An applied Medical optical trocar was then placed in the peritoneal cavity and insufflation carried out further. We then placed 3 robotic trocars in the upper abdomen as well as a supraumbilical 10 11 trocar. The 5 mm port was switched out for another 8 mm robotic trocar. Patient was placed in reverse Trendelenburg. The robotic arms were brought into the field. The camera was docked and targeted. The robotic instruments were placed and positioned in the area of the hiatal hernia. The surgeon then broke scrub and went to the robotic console. The short grasping retractor was then used to elevate the lateral segment of the left lobe of the liver. This exposed the hiatal hernia nicely. The gastrohepatic ligament was divided using the vessel sealer. We then brought the hernia sac down from the apex of the hiatus and opened the edge of the sac so that we could gain access to the mediastinum outside of the hernia sac. Dissection then continued with slowly reducing the hernia sac, dissecting in the mediastinum as well as dividing the hernia sac from 1st the right addy and then the anterior half of the left addy. We then turned our attention to the greater curvature for the. Stomach. The greater omentum was exposed and dissection using the vessel sealer was used to divide the greater omentum from the greater curvature of the stomach. This gave us access to the lesser sac. We continued dissecting from the body of the stomach up to the short gastric vessels and hiatus. Traction on the stomach allowed good visualization of the posterior half of the left addy so that the hernia sac could be divided from the left addy and from the posterior junction of the right and left addy. With this exposure, dissection was continued to further mobilize the hernia sac and the stomach. When this had been completed adequately, I removed the left side of the hernia sac as well as the gastric fat pad so that the angle of Hiss could be seen. I then started the mediastinal dissection. Proceeding anteriorly at 1st, I freed the esophagus from surrounding mediastinal structures staying in the area older tissue but using the vessel sealer to divide vascular structures. Once I had dissected to an adequate length in the anterior direction, we shifted our position and began dissecting the posterior and left side of the esophagus in similar fashion. Care was taken to avoid the pleura as well as the posterior vagus nerve. We dissected to the same proximal extent on the esophagus as had been achieved with the anterior mediastinal dissection. I then had the 1st refinery operator assistant elevate the lower aspect of the esophagus at the hiatus and the right-sided dissection was undertaken. Similar care was used to avoid the pleura and the anterior vagus. Eventually the esophagus was circumferentially dissected very high in the mediastinum giving us at least 5 cm of intra-abdominal esophagus. I then closed the hiatus with 2 [id number] mattress sutures of 0 Ethibond. The 1st was placed posterior. The 2nd was placed in the upper left aspect as this created the most straight course of the esophagus through the hiatus. The refinery operator assistant then passed the paddle [place] under the esophagus and I passed the upper aspect of the greater curvature into the Vargas. The stomach was then brought under the esophagus such that the greater curvature, where short gastrics had been divided, was cephalad and there was no twisting. I then used 0 Ethibond suture and created the partial fundoplasty. This included a fundopexy to the hiatus. Three such sutures were placed on the patient's right side and 3 similar, mirror image, sutures were placed on the patient's left side leaving a small area of bare esophagus anteriorly. We recheck areas of dissection. All looked good. The short grasping retractor was placed in the general peritoneal cavity out from under the liver. The robotic instruments and camera were removed. The robot was undocked and the trocars were removed. Patient was returned to a supine position. All trocar sites were closed with subcuticular 4-0 Monocryl skin suture. The incisions were dressed with Exofin surgical adhesive. The patient was then awakened and taken to recovery in good condition. Sponge and needle counts were correct x2. Estimated Blood Loss -20 Drains No Packing No Pathology None sent Complications None Condition Stable Disposition PACU [facility] Billing Surgery - Charge Forward: Surgery Billing (Robotic laparoscopic repair hiatal hernia with fundoplication)
[2025-01-25] MEDS: fentaNYL CITRATE INJ (*CRX) 100 MCG/2 ML VIAL 25 MCG IV PUSH ×4 (12:58→14:33)
[2025-01-25] MEDS: MORPHINE SULFATE (*CRX) 4 MG/ML INJ IV PUSH ×2 (15:13→17:51)
[2025-01-25] MEDS: LACTATED RINGERS 1,000 ML 100 ML IV CONT (15:13)
[2025-01-25] MEDS: IBUPROFEN IV 800 MG/200 ML 800 MG/200 ML BAG 400 MG IVPB (15:14)
--- NOTE | 2025-01-25 15:27 | ADMGEN ---
This patient, Debra Youssef, was admitted to [facility] Surg Room 330-02. Patient/family oriented to hospital policies and general routines including ID bracelet, bed and alarms, visiting hours, pain management, procedures, bathroom and other care routines, personal items, smoking policy, room service/diet, and visiting hours. Information on how to activate the Rapid Response Team has been discussed. Patient/Family are encouraged to report perceived risks to care and to ask questions if they do not understand what they are told or what they should do.
[2025-01-25] MEDS: oxyCODONE/ACETAMINOPHEN (*CRX) 10-325 MG TABLET 1 TAB PO (21:03)
[2025-01-25] MEDS: SENNA/DOCUSATE SODIUM TABLET 2 TAB PO (21:04)
--- NOTE | ~2025-01-26 | XR_ITS ---
EXAMINATION: XR chest 1V portable 01/26/2025 10:14 INDICATION: Chest pain PROCEDURE: AP portable chest COMPARISON: 01/20/2025 FINDINGS: Retrocardiac opacification may represent atelectasis or pneumonia. The cardiomediastinal si lhouette is within normal limits. There are no pleural effusions. There is no pneumothorax suspecte d. There is subcutaneous gas in the visualized aspects of the supraclavicular regions. IMPRESSION: 1: Subcutaneous emphysema of the neck. 2: Retrocardiac opacification, atelectasis versus pneumonia. Reviewed, dictated and finalized at location A.
[2025-01-26] MEDS: MORPHINE SULFATE (*CRX) 4 MG/ML INJ IV PUSH ×2 (02:36→08:21)
[2025-01-26] MEDS: LACTATED RINGERS 1,000 ML 100 ML IV CONT ×2 (02:37→14:09)
[2025-01-26] MEDS: oxyCODONE/ACETAMINOPHEN (*CRX) 5-325 MG TABLET 1 TABLET PO (03:11)
[2025-01-26 06:00] VITALS: BP 150/81; PULSE 61; RESP 18; TEMP 36.7; O2SAT 99
[2025-01-26 06:21] LABS: Hematocrit 44.8 % (37.0-47.0); Hemoglobin 14.6 g/dL (12.0-15.0); Mean Corpuscular HGB Conc 32.6 g/dl (32-36); Mean Corpuscular Hemoglobin 29.5 pg (26-34); Mean Corpuscular Volume 90.5 fl (80-100); Platelet Count Result 196 k/mm3 (150-375); Red Blood Count 4.95 M/mm3 (4.2-5.4); Red Cell Distribution Width 12.9 % (11.5-14.5); White Blood Count 8.6 K/mm3 (4.5-10.0)
[2025-01-26 06:32] LABS: Anion Gap 7 mmol/L (4-12); Blood Urea Nitrogen 8 mg/dL (7-17); Calcium 8.6 mg/dL (8.4-10.2); Carbon Dioxide 26 mmol/L (22-30); Chloride 106 mmol/L (98-107); Estimated CRCL calculation 86 ml/min; Estimated Glomerular Filt Rate > 60; Glucose 103 mg/dL (65-110); Potassium 4.1 mmol/L (3.4-5.0); Sodium 139 mmol/L (137-145)
[2025-01-26 07:54] VITALS: BP 146/76; PULSE 58; RESP 15; TEMP 37.1; O2SAT 98
[2025-01-26 08:00] VITALS: O2SAT 98
[2025-01-26] MEDS: CITALOPRAM HYDROBROMIDE 10 MG TABLET 30 MG PO (08:26)
[2025-01-26] MEDS: ACETAMINOPHEN ELIXIR 325 MG/10.15 ML UDC BY MOUTH ×2 (09:04→15:08)
[2025-01-26] MEDS: oxyCODONE (*CRX) 5 MG/5 ML ORAL SOLN IR 10 MG BY MOUTH ×2 (09:05→15:07)
--- NOTE | 2025-01-26 09:08 | WPDANESPN ---
Anes - Prog Note Post-Op Date/Time: 01/26/25 09:08 Cardiovascular status: normal Respiratory status: normal Airway patency: baseline Mental status: baseline Post-Op hydration status: normal Vital Signs: Last Vital Signs Temp 37.1 C 01/26/25 07:54 Pulse 58 L 01/26/25 07:54 Resp 15 01/26/25 07:54 BP 146/76 H 01/26/25 07:54 Pulse Ox 98 01/26/25 07:54 O2 Del Method Room Air 01/25/25 18:36 O2 Flow Rate 3 01/25/25 14:30 Pain Score (VAS): 2 I/O: Intake & Output 01/25/25 01/26/25 01/26/25 23:59 07:59 15:59 Intake Total 440 1000 238 Balance 440 1000 238 Laboratory Tests 01/26/25 05:36 01/26/25 05:36 01/26/25 05:36 WBC 8.6 RBC 4.95 Hgb 14.6 Hct 44.8 MCV 90.5 MCH 29.5 MCHC 32.6 RDW 12.9 Plt Count 196 MPV 12.0 H Sodium 139 Potassium 4.1 Chloride 106 Carbon Dioxide 26 Anion Gap 7 BUN 8 Creatinine 0.87 Estim Creat Clear Calc 86 Estimated GFR > 60 Glucose 103 Calcium 8.6 Post-procedural complaints: none Patient Feedback: Patient satisfied with anesthetic care.
[2025-01-26] MEDS: ENOXAPARIN 40 MG/0.4 ML SYRINGE SUB-Q (09:09)
[2025-01-26] MEDS: polyethylene glycoL 3350 17 GM POWD.PACK PO (09:09)
[2025-01-26] MEDS: IBUPROFEN IV 800 MG/200 ML 800 MG/200 ML BAG 400 MG IVPB ×3 (10:16→21:09)
--- NOTE | 2025-01-26 11:07 | PM.PNGS ---
Progress Note: A&P Assessment and Plan (1) Hiatal hernia: Code(s): K44.9 - Diaphragmatic hernia without obstruction or gangrene Status: Chronic Assessment and Plan: doing well postop day 1. Status post fundoplication and hiatal hernia repair. Tolerating clear liquids well. Having pain in her upper chest with breathing, especially deep breathing. 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 She also has some subcutaneous emphysema in the neck on chest x-ray which is likely due to this mediastinal dissection as well. Chest x-ray does not show pneumothorax or infiltrate. Will increase her pain medication. Expect this to improve significantly and the next day or 2. (2) GERD (gastroesophageal reflux disease): Qualifiers: Esophagitis presence: esophagitis presence not specified Qualified Code(s): K21.9 - Gastro-esophageal reflux disease without esophagitis Code(s): K21.9 - Gastro-esophageal reflux disease without esophagitis Status: Chronic Assessment and Plan: No reflux or dysphagia postoperatively (3) Fibromyalgia: Code(s): M79.7 - Fibromyalgia Status: Chronic Assessment and Plan: patient voice concerns that her chest pain might be part of her fibromyalgia. Suspect it is from the mediastinal dissection as noted above Subjective Subjective Date/Time Seen: 01/26/25 11:07 Patient reports: tolerating liquids well, voiding w/o difficulty, no flatus, no bowel movement, afebrile and other (Having pain in the upper chest and substernal with deep breaths and activity. Pain medication not affective at current doses.) Exam Const: General: cooperative, comfortable, no acute distress, alert, awake and overweight Orientation/consciousness: patient oriented x3 and No confusion Chest: Chest palpation & inspection: normal palpation of entire chest wall, no crepitus and No rash Resp: Effort & Inspection: normal respiratory effort, abnormal respiratory pattern ( Pain with deep breaths bilateral upper chest), no audible wheezes, no cough and not tachypneic Auscultation: clear to auscultation bilaterally Cardio: Rate: regular rate Rhythm: regular rhythm GI: Inspection: incision ( all incisions dry and healing well) GI Palp: Yes Soft to palpation, Yes Tenderness to palpation present (GI), No Guarding due to palpation present (GI) and No Rebound tenderness present Auscultation: absent bowel sounds Neuro: General: patient oriented x3 and no focal motor deficits Extrem: General: no calf tenderness and no edema Psych: Affect: normal affect Insight: Good insight present (Psych) Judgement: Good judgement present (Psych) Objective Data Vital Signs Vital Signs: Vital Signs - 24 hr 01/25/25 11:58 01/25/25 12:00 01/25/25 12:15 Temperature 36.9 C Pulse Rate 85 75 72 Respiratory Rate 15 18 12 Blood Pressure 146/77 H 143/80 H 152/74 H Pulse Oximetry 100 100 100 Oxygen Delivery Simple Face Mask Simple Face Mask Simple Face Mask Oxygen Flow Rate 10 10 10 01/25/25 12:30 01/25/25 12:45 01/25/25 13:00 Temperature Pulse Rate 77 70 65 Respiratory Rate 16 15 12 Blood Pressure 147/71 H 135/65 137/73 Pulse Oximetry 96 97 100 Oxygen Delivery Room Air Room Air Nasal Cannula Oxygen Flow Rate 2 01/25/25 13:15 01/25/25 13:30 01/25/25 13:45 Temperature Pulse Rate 69 68 69 Respiratory Rate 14 14 14 Blood Pressure 143/79 H 138/85 143/79 H Pulse Oximetry 97 100 100 Oxygen Delivery Nasal Cannula Nasal Cannula Nasal Cannula Oxygen Flow Rate 4 4 4 01/25/25 14:00 01/25/25 14:15 01/25/25 14:30 Temperature Pulse Rate 73 76 68 Respiratory Rate 12 14 12 Blood Pressure 137/77 145/92 H 153/76 H Pulse Oximetry 100 98 95 Oxygen Delivery Nasal Cannula Nasal Cannula Nasal Cannula Oxygen Flow Rate 4 3 3 01/25/25 14:50 01/25/25 15:05 01/25/25 15:35 Temperature 36.2 C L 36.3 C L 36.1 C L Pulse Rate 67 65 65 Respiratory Rate 18 16 18 Blood Pressure 157/92 H 162/102 H 150/85 H Pulse Oximetry 100 100 100 Oxygen Delivery Oxygen Flow Rate 01/25/25 16:35 01/25/25 18:36 01/25/25 22:00 Temperature 36.2 C L 37.0 C Pulse Rate 56 L 60 Respiratory Rate 16 18 Blood Pressure 162/96 H 144/74 H Pulse Oximetry 100 99 Oxygen Delivery Room Air Oxygen Flow Rate 01/26/25 06:00 01/26/25 07:54 01/26/25 08:00 Temperature 36.7 C 37.1 C Pulse Rate 61 58 L Respiratory Rate 18 15 Blood Pressure 150/81 H 146/76 H Pulse Oximetry 99 98 98 Oxygen Delivery Room Air Oxygen Flow Rate Intake/Output Intake/Output: Intake & Output 01/23/25 01/24/25 01/25/25 01/26/25 23:59 23:59 23:59 23:59 Intake Total 690 1238 Balance 690 1238 Meds/Results Medications: Active Medications Generic Name Dose Route Start Last Admin Trade Name Freq PRN Reason Stop Dose Admin Acetaminophen 500 mg 01/26/25 08:45 Acetaminophen Elixir 325 Mg/10.15 Ml Udc PO Q6H PRN Pain Rated 1-3 Acetaminophen 325 mg 01/26/25 08:46 Acetaminophen Elixir 325 Mg/10.15 Ml Udc BY MOUTH Q4H PRN Pain Rated 4-6 Acetaminophen 325 mg 01/26/25 08:50 01/26/25 09:04 Acetaminophen Elixir 325 Mg/10.15 Ml Udc BY MOUTH 325 mg Q6H PRN Administration Pain Rated 7-10 Citalopram Hydrobromide 30 mg 01/26/25 09:00 01/26/25 08:26 Citalopram Hydrobromide 10 Mg Tablet PO 30 mg DAILY JIMBO Administration Enoxaparin Sodium 40 mg 01/26/25 09:00 01/26/25 09:09 Enoxaparin 40 Mg/0.4 Ml Syringe SUB-Q 40 mg DAILY JIMBO Administration Gabapentin 300 mg 01/25/25 14:34 Gabapentin 300 Mg Capsule PO TID PRN NERVE PAIN Lactated Ringer's 1,000 mls @ 100 mls/hr 01/25/25 14:34 01/26/25 02:37 Lr - Lactated Ringers Iv IV CONT 100 mls/hr .Q10H JIMBO Administration Ibuprofen 800 mg in 200 mls @ 400 mls/hr 01/26/25 10:00 01/26/25 10:16 Caldolor 800 Mg/200 Ml IVPB 400 mls/hr Q6H JIMBO Administration Morphine Sulfate 3 mg 01/26/25 09:46 Morphine Sulfate (*Crx) 4 Mg/Ml Inj IV PUSH Q2H PRN Breakthrough Pain Rated 4-6 or NPO Morphine Sulfate 5 mg 01/26/25 09:46 Morphine Sulfate Inj (*Crx) 10 Mg/Ml Amp IV PUSH Q2H PRN Breakthrough Pain Rated 7-10 or NPO Naloxone HCl 0.1 mg 01/25/25 14:34 Naloxone Hcl 0.4 Mg/Ml Vial IV PUSH Q2M PRN Opiate Reversal Oxycodone HCl 5 mg 01/26/25 08:48 Oxycodone (*Crx) 5 Mg/5 Ml Oral Soln Ir BY MOUTH Q4H PRN Pain Rated 4-6 Oxycodone HCl 10 mg 01/26/25 08:52 01/26/25 09:05 Oxycodone (*Crx) 5 Mg/5 Ml Oral Soln Ir BY MOUTH 10 mg Q6H PRN Administration Pain Rated 7-10 Polyethylene Glycol 17 gm 01/26/25 09:00 01/26/25 09:09 Polyethylene Glycol 3350 17 Gm Powd.Pack PO 17 gm QAM JIMBO Administration Senna/Docusate Sodium 2 tab 01/25/25 21:00 01/25/25 21:04 Senna/Docusate Sodium Tablet PO 2 tab HS JIMBO Administration Sumatriptan Succinate 100 mg 01/25/25 14:34 Sumatriptan Succinate 25 Mg Tablet PO ONCE PRN migraine headache Radiology Results: ITS Impressions Chest X-Ray 01/26/25 10:27 IMPRESSION: 1: Subcutaneous emphysema of the neck. 2: Retrocardiac opacification, atelectasis versus pneumonia. Labs Labs: Laboratory Results - last 24 hr 01/26/25 05:36 WBC 8.6 RBC 4.95 Hgb 14.6 Hct 44.8 MCV 90.5 MCH 29.5 MCHC 32.6 RDW 12.9 Plt Count 196 MPV 12.0 H Sodium 139 Potassium 4.1 Chloride 106 Carbon Dioxide 26 Anion Gap 7 BUN 8 Creatinine 0.87 Estim Creat Clear Calc 86 Estimated GFR > 60 Glucose 103 Calcium 8.6 Imaging Attestation: I personally reviewed and interpreted this imaging study as follows: ( chest x-ray) My impression: fullness in the mediastinum, subcu emphysema the neck, no pneumothorax or infiltrate Radiologist's impression: 1: Subcutaneous emphysema of the neck. 2: Retrocardiac opacification, atelectasis versus pneumonia.
[2025-01-26 14:00] VITALS: BP 121/79; PULSE 69; RESP 15; TEMP 36.4; O2SAT 100
[2025-01-26] MEDS: MORPHINE SULFATE (*CRX) 4 MG/ML INJ 3 MG IV PUSH (14:06)
[2025-01-26 20:15] VITALS: BP 142/74; PULSE 68; RESP 16; TEMP 36.2; O2SAT 96
[2025-01-26] MEDS: SENNA/DOCUSATE SODIUM TABLET 2 TAB PO (21:07)
[2025-01-26] MEDS: oxyCODONE (*CRX) 5 MG/5 ML ORAL SOLN IR BY MOUTH (21:07)
[2025-01-27] MEDS: LACTATED RINGERS 1,000 ML 100 ML IV CONT (00:42)
[2025-01-27] MEDS: MORPHINE SULFATE (*CRX) 4 MG/ML INJ 3 MG IV PUSH ×2 (04:03→17:28)
[2025-01-27 04:05] VITALS: BP 155/82; PULSE 70; RESP 16; TEMP 36.2; O2SAT 99
[2025-01-27] MEDS: IBUPROFEN IV 800 MG/200 ML 800 MG/200 ML BAG 400 MG IVPB ×4 (04:05→21:32)
[2025-01-27] MEDS: oxyCODONE (*CRX) 5 MG/5 ML ORAL SOLN IR BY MOUTH ×2 (04:46→18:43)
[2025-01-27 06:08] LABS: Hematocrit 42.1 % (37.0-47.0); Hemoglobin 14.1 g/dL (12.0-15.0); Mean Corpuscular HGB Conc 33.5 g/dl (32-36); Mean Corpuscular Hemoglobin 30.1 pg (26-34); Mean Platelet Volume 11.7 fl (7.4-10.4); Platelet Count Result 184 k/mm3 (150-375); Red Blood Count 4.68 M/mm3 (4.2-5.4); Red Cell Distribution Width 13.1 % (11.5-14.5); White Blood Count 6.1 K/mm3 (4.5-10.0)
[2025-01-27 06:21] LABS: Anion Gap 9 mmol/L (4-12); Blood Urea Nitrogen 6 mg/dL (7-17); Calcium 8.3 mg/dL (8.4-10.2); Carbon Dioxide 25 mmol/L (22-30); Chloride 105 mmol/L (98-107); Estimated CRCL calculation 89 ml/min; Estimated Glomerular Filt Rate > 60; Glucose 100 mg/dL (65-110); Potassium 3.8 mmol/L (3.4-5.0); Sodium 139 mmol/L (137-145)
--- NOTE | 2025-01-27 07:23 | PM.PNGS ---
Progress Note: A&P Assessment and Plan (1) Hiatal hernia: Code(s): K44.9 - Diaphragmatic hernia without obstruction or gangrene Status: Chronic Assessment and Plan: Doing better, pain is less, labs look good. Will advance to minced and moist diet. Up walking more. Recheck labs and exam again tomorrow. No complaints of heartburn. (2) GERD (gastroesophageal reflux disease): Qualifiers: Esophagitis presence: esophagitis presence not specified Qualified Code(s): K21.9 - Gastro-esophageal reflux disease without esophagitis Code(s): K21.9 - Gastro-esophageal reflux disease without esophagitis Status: Chronic Subjective Subjective Date/Time Seen: 01/27/25 07:23 Post Op day: 2 Patient reports: no new complaints, pain is less (Pleuritic chest pain better today. P.o. meds controlling with scheduled IV ibuprofen), tolerating liquids well, voiding w/o difficulty, no bowel movement and afebrile Objective Data Vital Signs Vital Signs: Vital Signs - 24 hr 01/26/25 07:54 01/26/25 08:00 01/26/25 14:00 Temperature 37.1 C 36.4 C L Pulse Rate 58 L 69 Respiratory Rate 15 15 Blood Pressure 146/76 H 121/79 Pulse Oximetry 98 98 100 Oxygen Delivery Room Air 01/26/25 20:15 01/26/25 21:07 01/27/25 04:05 Temperature 36.2 C L 36.2 C L Pulse Rate 68 70 Respiratory Rate 16 16 Blood Pressure 142/74 H 155/82 H Pulse Oximetry 96 99 Oxygen Delivery Room Air Intake/Output Intake/Output: Intake & Output 01/24/25 01/25/25 01/26/25 01/27/25 23:59 23:59 23:59 23:59 Intake Total 690 3596 1800 Balance 690 3596 1800 Meds/Results Medications: Active Medications Generic Name Dose Route Start Last Admin Trade Name Freq PRN Reason Stop Dose Admin Acetaminophen 500 mg 01/26/25 08:45 Acetaminophen Elixir 325 Mg/10.15 Ml Udc PO Q6H PRN Pain Rated 1-3 Acetaminophen 325 mg 01/26/25 08:46 01/26/25 15:08 Acetaminophen Elixir 325 Mg/10.15 Ml Udc BY MOUTH 325 mg Q4H PRN Administration Pain Rated 4-6 Acetaminophen 325 mg 01/26/25 08:50 01/26/25 09:04 Acetaminophen Elixir 325 Mg/10.15 Ml Udc BY MOUTH 325 mg Q6H PRN Administration Pain Rated 7-10 Citalopram Hydrobromide 30 mg 01/26/25 09:00 01/26/25 08:26 Citalopram Hydrobromide 10 Mg Tablet PO 30 mg DAILY JIMBO Administration Enoxaparin Sodium 40 mg 01/26/25 09:00 01/26/25 09:09 Enoxaparin 40 Mg/0.4 Ml Syringe SUB-Q 40 mg DAILY JIMBO Administration Gabapentin 300 mg 01/25/25 14:34 Gabapentin 300 Mg Capsule PO TID PRN NERVE PAIN Lactated Ringer's 1,000 mls @ 100 mls/hr 01/25/25 14:34 01/27/25 00:42 Lr - Lactated Ringers Iv IV CONT 100 mls/hr .Q10H JIMBO Administration Ibuprofen 800 mg in 200 mls @ 400 mls/hr 01/26/25 10:00 01/27/25 04:35 Caldolor 800 Mg/200 Ml IVPB Infused Q6H JIMBO Infusion Morphine Sulfate 3 mg 01/26/25 09:46 01/27/25 04:03 Morphine Sulfate (*Crx) 4 Mg/Ml Inj IV PUSH 3 mg Q2H PRN Administration Breakthrough Pain Rated 4-6 or NPO Morphine Sulfate 5 mg 01/26/25 09:46 Morphine Sulfate Inj (*Crx) 10 Mg/Ml Amp IV PUSH Q2H PRN Breakthrough Pain Rated 7-10 or NPO Naloxone HCl 0.1 mg 01/25/25 14:34 Naloxone Hcl 0.4 Mg/Ml Vial IV PUSH Q2M PRN Opiate Reversal Oxycodone HCl 5 mg 01/26/25 08:48 01/27/25 04:46 Oxycodone (*Crx) 5 Mg/5 Ml Oral Soln Ir BY MOUTH 5 mg Q4H PRN Administration Pain Rated 4-6 Oxycodone HCl 10 mg 01/26/25 08:52 01/26/25 15:07 Oxycodone (*Crx) 5 Mg/5 Ml Oral Soln Ir BY MOUTH 10 mg Q6H PRN Administration Pain Rated 7-10 Polyethylene Glycol 17 gm 01/26/25 09:00 01/26/25 09:09 Polyethylene Glycol 3350 17 Gm Powd.Pack PO 17 gm QAM JIMBO Administration Senna/Docusate Sodium 2 tab 01/25/25 21:00 01/26/25 21:07 Senna/Docusate Sodium Tablet PO 2 tab HS JIMBO Administration Sumatriptan Succinate 100 mg 01/25/25 14:34 Sumatriptan Succinate 25 Mg Tablet PO ONCE PRN migraine headache Radiology Results: ITS Impressions Chest X-Ray 01/26/25 10:27 IMPRESSION: 1: Subcutaneous emphysema of the neck. 2: Retrocardiac opacification, atelectasis versus pneumonia. Labs Labs: Laboratory Results - last 24 hr 01/27/25 05:41 WBC 6.1 RBC 4.68 Hgb 14.1 Hct 42.1 MCV 90.0 MCH 30.1 MCHC 33.5 RDW 13.1 Plt Count 184 MPV 11.7 H Sodium 139 Potassium 3.8 Chloride 105 Carbon Dioxide 25 Anion Gap 9 BUN 6 L Creatinine 0.83 Estim Creat Clear Calc 89 Estimated GFR > 60 Glucose 100 Calcium 8.3 L
[2025-01-27] MEDS: LACTATED RINGERS 1,000 ML 60 ML IV CONT (09:00)
[2025-01-27] MEDS: CITALOPRAM HYDROBROMIDE 10 MG TABLET 30 MG PO (09:06)
[2025-01-27] MEDS: ENOXAPARIN 40 MG/0.4 ML SYRINGE SUB-Q (09:07)
[2025-01-27] MEDS: oxyCODONE (*CRX) 5 MG/5 ML ORAL SOLN IR 10 MG BY MOUTH (09:12)
[2025-01-27] MEDS: polyethylene glycoL 3350 17 GM POWD.PACK PO (09:14)
[2025-01-27 14:00] VITALS: BP 147/84; PULSE 77; RESP 16; TEMP 36.8; O2SAT 97
[2025-01-27] MEDS: ACETAMINOPHEN ELIXIR 325 MG/10.15 ML UDC BY MOUTH (18:43)
[2025-01-27] MEDS: SENNA/DOCUSATE SODIUM TABLET 2 TAB PO (20:39)
[2025-01-27 21:09] VITALS: BP 149/72; PULSE 65; RESP 20; TEMP 36.3; O2SAT 98
[2025-01-28] MEDS: IBUPROFEN IV 800 MG/200 ML 800 MG/200 ML BAG 400 MG IVPB ×4 (04:03→21:34)
[2025-01-28 05:00] VITALS: BP 152/82; PULSE 67; RESP 20; TEMP 36.4; O2SAT 96
[2025-01-28 06:37] LABS: Hematocrit 37.3 % (37.0-47.0); Hemoglobin 12.3 g/dL (12.0-15.0); Mean Corpuscular Hemoglobin 29.8 pg (26-34); Mean Corpuscular Volume 90.3 fl (80-100); Mean Platelet Volume 11.4 fl (7.4-10.4); Platelet Count Result 171 k/mm3 (150-375); Red Blood Count 4.13 M/mm3 (4.2-5.4); Red Cell Distribution Width 12.8 % (11.5-14.5); White Blood Count 5.7 K/mm3 (4.5-10.0)
[2025-01-28 06:49] LABS: Anion Gap 5 mmol/L (4-12); Blood Urea Nitrogen 6 mg/dL (7-17); Calcium 8.4 mg/dL (8.4-10.2); Carbon Dioxide 26 mmol/L (22-30); Chloride 108 mmol/L (98-107); Estimated CRCL calculation 90 ml/min; Estimated Glomerular Filt Rate > 60; Glucose 94 mg/dL (65-110); Potassium 3.6 mmol/L (3.4-5.0); Sodium 139 mmol/L (137-145)
[2025-01-28] MEDS: oxyCODONE (*CRX) 5 MG/5 ML ORAL SOLN IR BY MOUTH (06:56)
[2025-01-28] MEDS: PROCHLORPERAZINE EDISYLATE 10 MG/2 ML VIAL IV PUSH (08:52)
[2025-01-28] MEDS: ENOXAPARIN 40 MG/0.4 ML SYRINGE SUB-Q (08:53)
[2025-01-28] MEDS: CITALOPRAM HYDROBROMIDE 10 MG TABLET 30 MG PO (08:53)
[2025-01-28] MEDS: MORPHINE SULFATE (*CRX) 4 MG/ML INJ 3 MG IV PUSH (09:03)
[2025-01-28] MEDS: KCL 40 MEQ/D5/0.9% SOD CHL 1,000 ML 80 ML IV CONT ×2 (10:28→23:54)
--- NOTE | 2025-01-28 12:41 | PM.PNGS ---
Progress Note: A&P Assessment and Plan (1) Hiatal hernia: Code(s): K44.9 - Diaphragmatic hernia without obstruction or gangrene Status: Chronic Assessment and Plan: Doing better. Will start low-fiber diet and reminded patient to chew food well and take time between bites, also between small drinks. Up walking. Possibly home tomorrow. Recheck labs and exam. (2) GERD (gastroesophageal reflux disease): Qualifiers: Esophagitis presence: esophagitis presence not specified Qualified Code(s): K21.9 - Gastro-esophageal reflux disease without esophagitis Code(s): K21.9 - Gastro-esophageal reflux disease without esophagitis Status: Chronic Assessment and Plan: No reflux symptoms. (3) Fibromyalgia: Code(s): M79.7 - Fibromyalgia Status: Chronic (4) Nasal sinus congestion: Code(s): R09.81 - Nasal congestion Status: Acute Assessment and Plan: Apparently just started yesterday. Will try Sudafed 30 mg q.4 hours p.r.n. Subjective Subjective Date/Time Seen: 01/28/25 12:41 Post Op day: 3 Patient reports: feels better, voiding w/o difficulty and afebrile Interval history: Was reported to me that patient was regurgitating and symptoms were suggestive esophageal narrowing with no nausea. This morning, patient tells me that she was coughing up sinus congestion, not swallowed food. She does feel like she has a lot of sinus congestion down the back of her throat. Exam Const: General: comfortable, alert and awake Nutritional Appearance: overweight Orientation/consciousness: patient oriented x3 Resp: Effort & Inspection: normal respiratory effort Auscultation: clear to auscultation bilaterally, no rales and no rhonchi GI: Inspection: incision (Healing well) GI Palp: Yes Soft to palpation and Yes Tenderness to palpation present (GI) (Minimal upper abdominal tenderness) Auscultation: normal bowel sounds Objective Data Vital Signs Vital Signs: Vital Signs - 24 hr 01/27/25 14:00 01/27/25 20:39 01/27/25 21:09 Temperature 36.8 C 36.3 C L Pulse Rate 77 65 Respiratory Rate 16 20 Blood Pressure 147/84 H 149/72 H Pulse Oximetry 97 98 Oxygen Delivery Room Air 01/28/25 05:00 01/28/25 08:00 Temperature 36.4 C L Pulse Rate 67 Respiratory Rate 20 Blood Pressure 152/82 H Pulse Oximetry 96 Oxygen Delivery Room Air Intake/Output Intake/Output: Intake & Output 01/25/25 01/26/25 01/27/25 01/28/25 23:59 23:59 23:59 23:59 Intake Total 690 3596 4618 600 Balance 690 3596 4618 600 Meds/Results Medications: Active Medications Generic Name Dose Route Start Last Admin Trade Name Freq PRN Reason Stop Dose Admin Acetaminophen 500 mg 01/26/25 08:45 Acetaminophen Elixir 325 Mg/10.15 Ml Udc PO Q6H PRN Pain Rated 1-3 Acetaminophen 325 mg 01/26/25 08:46 01/27/25 18:43 Acetaminophen Elixir 325 Mg/10.15 Ml Udc BY MOUTH 325 mg Q4H PRN Administration Pain Rated 4-6 Acetaminophen 325 mg 01/26/25 08:50 01/26/25 09:04 Acetaminophen Elixir 325 Mg/10.15 Ml Udc BY MOUTH 325 mg Q6H PRN Administration Pain Rated 7-10 Citalopram Hydrobromide 30 mg 01/26/25 09:00 01/28/25 08:53 Citalopram Hydrobromide 10 Mg Tablet PO 30 mg DAILY JIMBO Administration Enoxaparin Sodium 40 mg 01/26/25 09:00 01/28/25 08:53 Enoxaparin 40 Mg/0.4 Ml Syringe SUB-Q 40 mg DAILY JIMBO Administration Gabapentin 300 mg 01/25/25 14:34 Gabapentin 300 Mg Capsule PO TID PRN NERVE PAIN Ibuprofen 800 mg in 200 mls @ 400 mls/hr 01/26/25 10:00 01/28/25 09:30 Caldolor 800 Mg/200 Ml IVPB Infused Q6H JIMBO Infusion Potassium Chloride/Dextrose/Sod Cl 1,000 mls @ 80 mls/hr 01/28/25 10:00 01/28/25 10:28 Kcl 40 Meq/D5ns IV CONT 80 mls/hr .[id number] JIMBO Administration Morphine Sulfate 3 mg 01/26/25 09:46 01/28/25 09:03 Morphine Sulfate (*Crx) 4 Mg/Ml Inj IV PUSH 3 mg Q2H PRN Administration Breakthrough Pain Rated 4-6 or NPO Morphine Sulfate 5 mg 01/26/25 09:46 Morphine Sulfate Inj (*Crx) 10 Mg/Ml Amp IV PUSH Q2H PRN Breakthrough Pain Rated 7-10 or NPO Naloxone HCl 0.1 mg 01/25/25 14:34 Naloxone Hcl 0.4 Mg/Ml Vial IV PUSH Q2M PRN Opiate Reversal Oxycodone HCl 5 mg 01/26/25 08:48 01/28/25 06:56 Oxycodone (*Crx) 5 Mg/5 Ml Oral Soln Ir BY MOUTH 5 mg Q4H PRN Administration Pain Rated 4-6 Oxycodone HCl 10 mg 01/26/25 08:52 01/27/25 09:12 Oxycodone (*Crx) 5 Mg/5 Ml Oral Soln Ir BY MOUTH 10 mg Q6H PRN Administration Pain Rated 7-10 Polyethylene Glycol 17 gm 01/26/25 09:00 01/28/25 08:54 Polyethylene Glycol 3350 17 Gm Powd.Pack PO Not Given QAM JIMBO Prochlorperazine Edisylate 10 mg 01/27/25 17:17 01/28/25 08:52 Prochlorperazine Edisylate 10 Mg/2 Ml Vial IV PUSH 10 mg Q6H PRN Administration Nausea And Vomiting Senna/Docusate Sodium 2 tab 01/25/25 21:00 01/27/25 20:39 Senna/Docusate Sodium Tablet PO 2 tab HS JIMBO Administration Sumatriptan Succinate 100 mg 01/25/25 14:34 Sumatriptan Succinate 25 Mg Tablet PO ONCE PRN migraine headache Radiology Results: ITS Impressions Chest X-Ray 01/26/25 10:27 IMPRESSION: 1: Subcutaneous emphysema of the neck. 2: Retrocardiac opacification, atelectasis versus pneumonia. Labs Labs: Laboratory Results - last 24 hr 01/28/25 01/28/25 06:27 06:28 WBC 5.7 RBC 4.13 L Hgb 12.3 Hct 37.3 MCV 90.3 MCH 29.8 MCHC 33.0 RDW 12.8 Plt Count 171 MPV 11.4 H Sodium 139 Potassium 3.6 Chloride 108 H Carbon Dioxide 26 Anion Gap 5 BUN 6 L Creatinine 0.82 Estim Creat Clear Calc 90 Estimated GFR > 60 Glucose 94 Calcium 8.4
[2025-01-28] MEDS: PSEUDOEPHEDRINE HCL 30 MG TABLET PO ×3 (12:53→21:34)
[2025-01-28 14:00] VITALS: BP 151/75; PULSE 64; RESP 18; TEMP 36.8; O2SAT 99
[2025-01-28 21:10] VITALS: BP 152/88; PULSE 71; RESP 16; TEMP 36.6; O2SAT 97
[2025-01-28] MEDS: SENNA/DOCUSATE SODIUM TABLET 2 TAB PO (21:33)
[2025-01-29] MEDS: PSEUDOEPHEDRINE HCL 30 MG TABLET PO ×2 (02:40→07:34)
[2025-01-29] MEDS: IBUPROFEN IV 800 MG/200 ML 800 MG/200 ML BAG 400 MG IVPB (04:21)
[2025-01-29 06:02] VITALS: BP 148/81; PULSE 81; RESP 16; TEMP 36.1; O2SAT 96
[2025-01-29 07:05] LABS: Hematocrit 36.9 % (37.0-47.0); Hemoglobin 12.5 g/dL (12.0-15.0); Mean Corpuscular HGB Conc 33.9 g/dl (32-36); Mean Corpuscular Hemoglobin 30.3 pg (26-34); Mean Corpuscular Volume 89.6 fl (80-100); Mean Platelet Volume 11.5 fl (7.4-10.4); Platelet Count Result 179 k/mm3 (150-375); Red Blood Count 4.12 M/mm3 (4.2-5.4); Red Cell Distribution Width 12.8 % (11.5-14.5); White Blood Count 6.7 K/mm3 (4.5-10.0)
[2025-01-29 07:24] LABS: Anion Gap 7 mmol/L (4-12); Blood Urea Nitrogen 4 mg/dL (7-17); Calcium 8.4 mg/dL (8.4-10.2); Carbon Dioxide 21 mmol/L (22-30); Chloride 111 mmol/L (98-107); Estimated CRCL calculation 107 ml/min; Estimated Glomerular Filt Rate > 60; Glucose 115 mg/dL (65-110); Sodium 139 mmol/L (137-145)
[2025-01-29] MEDS: CITALOPRAM HYDROBROMIDE 10 MG TABLET 30 MG PO (07:34)
[2025-01-29] MEDS: polyethylene glycoL 3350 17 GM POWD.PACK PO (07:34)
[2025-01-29] MEDS: ENOXAPARIN 40 MG/0.4 ML SYRINGE SUB-Q (07:34)
[2025-01-29 10:12] VITALS: O2SAT 98
--- NOTE | 2025-01-29 11:31 | P.DS_ITS ---
DS: Admitting Diagnosis Discharge Date 01/29/2025 Admitting Diagnosis * Hiatal hernia * Gastroesophageal reflux with dysphagia and regurgitation * Migraine headaches * BMI 41 * Fibromyalgia DS: Discharge Diagnosis Discharge Diagnosis (1) Hiatal hernia: Code(s): K44.9 - Diaphragmatic hernia without obstruction or gangrene Status: Chronic (2) GERD (gastroesophageal reflux disease): Qualifiers: Esophagitis presence: esophagitis presence not specified Qualified Code(s): K21.9 - Gastro-esophageal reflux disease without esophagitis Code(s): K21.9 - Gastro-esophageal reflux disease without esophagitis Status: Chronic (3) Headache, migraine: Qualifiers: Migraine type: unspecified Status migrainosus presence: without status migrainosus Intractability: not intractable Qualified Code(s): G43.909 - Migraine, unspecified, not intractable, without status migrainosus Code(s): G43.909 - Migraine, unspecified, not intractable, without status migrainosus Status: Chronic (4) Fibromyalgia: Code(s): M79.7 - Fibromyalgia Status: Chronic (5) Morbid obesity: Code(s): E66.01 - Morbid (severe) obesity due to excess calories Status: Chronic DS: Summary Hospital Course Hospital Course: Patient is a 49-year-old woman who started having significant epigastric abdominal pain, mostly after eating, last August. This would sometimes involve both right and left upper quadrants as well. She noticed heartburn and sometimes regurgitation associated with this pain. She had evaluation of her gallbladder and ultrasound was normal. Hepatobiliary scan also was normal with an ejection fraction of 61%. An EGD in 2020 showed a 5 cm hiatal hernia but no erosive esophagitis. She tried [id number] antacid medications and then was on pantoprazole twice a day without relief. She had an upper GI which showed a hiatal hernia and episodes of spontaneous reflux. After discussion, the patient was taken to surgery on the day of admission, 01/25/2025, and robotic laparoscopic hiatal hernia repair was performed along with partial fundoplasty and fund opacity. Postoperatively the patient initially had some upper chest pain that was pleuritic in nature. A chest x-ray was obtained which showed some fullness in the mediastinum and some subcutaneous emphysema in the neck consistent with postoperative state. There was no pneumothorax or pleural effusion. Postop day 2. Showed significant improvement in this pleuritic pain. Patient then developed sinus drainage which would cause her to cough and spit up drainage from the back of her throat. She was started on Sudafed which helped significantly. Her diet was gradually advanced from liquids to soft diet with small bites. She was initially requiring IV analgesics but by the day of discharge was very comfortable on oral analgesics and taking them infrequently. She had no symptoms of reflux, dysphagia, or regurgitation in the hospital and was not restarted on her pain appraise all following surgery. She is discharged now on postop day 4. In good condition. Status at Discharge Functional status at discharge: independent ambulation Overall status at discharge: patient is progressing back to baseline Time Spent with Patient Time attestation: Total time spent providing and/or coordinating discharge services: Time spent: Less than 30 minutes DS: Data Data Completed and Pending Labs on day of discharge: Labs from last 24 hours 01/29/25 06:56 WBC 6.7 RBC 4.12 L Hgb 12.5 Hct 36.9 L MCV 89.6 MCH 30.3 MCHC 33.9 RDW 12.8 Plt Count 179 MPV 11.5 H Sodium 139 Potassium 4.0 Chloride 111 H Carbon Dioxide 21 L Anion Gap 7 BUN 4 L Creatinine 0.68 L Estim Creat Clear Calc 107 Estimated GFR > 60 Glucose 115 H Calcium 8.4 Discharge Plan Discharge Attending physician on discharge: Zachary Melara Discharging Clinician: Zachary Melara Anticipated Discharge Date/Time: 01/29/25 11:43 Patient Disposition: Home, Self-Care Activity: may shower, no straining and as tolerated Diet: low fiber and other - see discharge instructions Wound Care Instructions: incision open to air Discharge Instructions: * Ambulate 3-4 x per day and as tolerated. * No lifting over 15-20lbs. * May bathe or shower. * Stairs are OK. * May drive a car in 3 days. * Low-fiber diet with small bites, small swallows of liquids. Eat slowly, taking time between bites and drinks. * Resume usual home medications. * May take milk of magnesia if no bowel movement in 2-3 days. * See Dr. Melara in 2 weeks for follow-up. Patient Instructions: Antibiotic Form Patient Language: Moldovan Stand Alone Forms: General Discharge Information Follow-up/Referrals: Zachary Melara MD [Physician] - 3 Weeks Discharge Medications: New oxycodone 5 mg/5 mL Solution 5 mg BYMOUTH Q4H PRN (Reason: Pain Rated 4-6) Qty: 25 0RF pseudoephedrine HCl 30 mg Tablet 30 mg PO Q4H PRN (Reason: Congestion) Qty: 10 0RF polyethylene glycol 3350 [Miralax] 17 gram Powder In Packet 17 g PO QAM Qty: 10 0RF sennosides-docusate sodium [Senokot-S] 8.6-50 mg Tablet 2 tab PO HS Qty: 10 0RF acetaminophen [Nortemp] 160 mg/5 mL Suspension 500 mg PO Q6H PRN (Reason: Pain Rated 1-3) Qty: 25 0RF Continued Aimovig Autoinjector 140 mg/mL auto-injector 140 mg subcut MONTHLY Qty: 1 12RF sumatriptan succinate 50 mg tablet 100 mg PO ONCE PRN (Reason: migraine headache) Qty: 10 6RF Rx Instructions: take at onset of a migraine mecobalamin (vitamin B12) 1,000 mcg tablet,chewable 1,000 mcg PO DAILY Qty: 30 5RF gabapentin 300 mg capsule 300 mg PO TID PRN (Reason: pain) MEDICAL MARIJUANA 100 mg PO HS citalopram 20 mg tablet 30 mg PO DAILY Qty: 135 1RF Discontinued pantoprazole [Protonix] 40 mg tablet,delayed release (DR/EC) 40 mg PO BID Qty: 60 3RF Date of admission: 01/26/25 14:48 Primary Care Provider: Nancy Baker Admitting Provider: Zachary Melaar Attending physician on admission: Zachary Melara Condition: Improved
== END 2025-01-29 12:20 | disposition home or self-care (01) ==
LOC: ANHSURGERY 15:05 → ANH3MEDSUR 15:05
PROVIDERS: Admitting Provider Surgery; PCP Nurse Practitioner Family; Visit Provider Surgery
PROC: 0DV44ZZ Restriction of Esophagogastric Junction, Percutaneous Endoscopic Approach (ICD-10-PCS; CPT 43280; principal; 2025-01-25 08:30)
DX: K21.9 Gastro-esophageal reflux disease without esophagitis (principal); K44.9 Diaphragmatic hernia without obstruction or gangrene; M79.7 Fibromyalgia; E66.01 Morbid (severe) obesity due to excess calories; Z68.39 Body mass index [BMI] 39.0-39.9, adult; G43.909 Migraine, unspecified, not intractable, without status migrainosus; R09.81 Nasal congestion; Z79.899 Other long term (current) drug therapy
CPT/HCPCS: 43280; S2900; 36415; 71045; 80048; 85027; A9270; G0378; J0330; J0690; J0780; J1100; J1650; J1741; J1885; J2250; J2270; J2371; J2405; J3010; J3480; J7030; J7120

== ENCOUNTER 2025-02-09 13:56 | Outpatient (CLI) | payer BC, SELFPAY ==
--- NOTE | ~2025-02-09 | XR_ITS ---
EXAM: XR UGI water soluble wo kub - 02/09/2025 14:20 CDT History: 49 years old Female status post hiatal hernia repair. Technique Contrast fluoroscopic examination of the upper GI tract was performed with barium. Findings The patient swallowed the oral contrast without difficulty. Contrast transitioned appropriately from the mouth through the esophagus. Esophageal motility was wit hin normal limits. There was some delay in emptying of contrast from esophagus to stomach which coul d be related to postsurgical edema. The fundoplication is intact and there is no extraluminal leak. There was no stricture or gastroesophageal reflux visualized. Normal gastric emptying was seen. The duodenal bulb and duodenal loop were unremarkable. No extrinsi c or intrinsic masses were identified in the stomach or duodenum. Impression: 1. Intact fundoplication and no extraluminal leak. 2. Mild delay in emptying of contrast from esophagus to stomach could be related to postsurgical garrett ma. Attention on follow-up imaging. Reviewed, dictated and finalized at location A. Impression: 1. Intact fundoplication and no extraluminal leak. 2. Mild delay in emptying of contrast from esophagus to stomach could be relat ed to postsurgical edema. Attention on follow-up imaging.
--- OUTSIDE RECORDS SUMMARY | 2025-02-09 14:32 | XMS_ITS | Continuity of Care Document ---
Author Organization [facility] Address [address] [place] [address] Phone Care Team Providers Care Outpatient Scheduler Name Role Phone Beth Henriquez NP Unavailable Unavailable Allergies, Adverse Reactions, Alerts Substance Reaction Status Criticality ONDANSETRON HCL Active No Informati on codeine Active No Information penicillin G Active No Information Medications Medication Instructions Dosage Effective Dates (start - stop) Status Comments Cymbalta 60 mg capsule,delayed release take 1 capsule by oral route every day 60 MG - Active Vitamin D2 50,000 unit capsule take 1 capsule by oral route every week x 12 weeks, then decrease to once monthly - Active Celebrex 200 mg capsule take 1 capsule by oral route 2 times every day as needed 200 MG - Active Ultram 50 mg tablet take 1 tablet by ora l route every 4 hours as needed - Active Procedures Procedure Date OFFICE/OUTPATIENT VISIT, EST DNA ANTIBODY DNA ANTIBODY, SINGLE STRAND NUCLEAR ANTIGEN ANTIBODY COMPLETE CBC W/AUTO DIFF WBC COMPREHEN METABOLIC PANEL C-REACTIVE PROTEIN ASSAY OF CK (CPK) CCP ANTIBODY RBC SED RATE, AUTOMATED IMMUNOASSAY, NONANTIBODY RHEUMATOID FACTOR, QUANT ASSAY OF BLOOD/URIC ACID ASSAY OF VITAMIN D HEP B CORE ANTIBODY, TOTAL HEP B SURFACE ANTIBODY HEPATITIS B SURFACE AG, EIA HEPATITIS C AB TEST Hand 2 View Foot 2 View ROUTINE VENIPUNCTURE US XTR NON-VASC COMPLETE US XTR NON-VASC COMPLETE US XTR NON-VASC COMPLETE OFFICE CONSULTATION Advance Directives Directive Yes / No Effective Date File Name No Information Encounters Encounter Description Practice Location Reason(s) For Visit Diagnoses Date Provider Providers Copied on Encounter [facility], [address], [place], [place], [facility], tel:[phone] [place] No Information Jul- 2 Bonnieanjel Campos. [address] [place] [address], [place], [place], [id number], . tel:[phone] OFFICE/OUTPAT IENT VISIT, EST [facility], [address], [facility], tel:[phone] [place] follow up (chief complaint) Rheumatism, unspecified and fibrositisCe rvicalgiaLow back painFatigue / MalaiseEncou nter for therapeutic drug monitoringUn specified vitamin d deficiency [address], [facility] [address], [place], [address], [place]. tel:[phone] Referring Provider: Faye Verdin, [address] [place], [place] [id number], [address]. tel:[phone] OFFICE CONSULTATION [facility], [address], [place], [facility], tel:[phone] [place] generalized pain and fatigue (chief complaint) CervicalgiaL ow back painRheumati sm, unspecified and fibrositisFa tigue / MalaiseEncou nter for therapeutic drug monitoring 0 [address] [facility] [facility], [place], [address], [place]. tel:[phone] Referring Provider: Faye Verdin, [facility] [facility] [address], [place], [address]. tel:[phone] Family History Family Member Type Diagnosis Age At Onset Father Problem (finding) hypertension Mother Problem (finding) hypertension Payers Payer name Insurance type Covered libertarian ID Authoriza tion(s) No Information Social History Type Description Quantity Date Captured Comments Sex Female Smoking Status No Information Chief Complaint And Reason For Visit No Information Reason For Referral Reason For Referral No Information Plan Of Treatment Date Type Action Status Future Order: Radiology Order Fo ot X-ray; Limited (2 views) (21516), Ordered on: Ordered Future Order: Radiology Order Dill nd X-ray; Limited (2 views) ([id number]), Collected on: Ordered History Of Present Illness Encounter Date Complaint History Of Prese nt Illness follow up generalized pain and fatigue Functional Status Date Functional Assessmen t No Information Instructions Date Instruction Additional Infor mation No Information Assessments Type Assessment Date No Information Patient Care Teams Name Effective Dates (start - stop) Status Members No Information
--- OUTSIDE RECORDS SUMMARY | 2025-02-09 14:32 | XMS_ITS | Clinical Summary ---
Author Organization [facility] Address [facility] [place] [address] Care Team Providers Care Education Program Specialist Name Role Phone Nancy Baker EDUCATION DEPARTMENT CHAIR Primary Care Provider [phone] Allergies Active Allergy Reactions Criticality Noted Date [...] - 2023-2 5 season) 2024 02/01/2021, 01/11/2021 Zoster Vaccines (1 of 2) 2024 Colorectal [...] the left lateral decubitus position, the Olympus [id number] endoscope was used to easily intubate the [...] the left lateral decubitus position, the Olympus [id number] colonoscope was introduced into the rectum and [...] Relevant to Health Maintenance Insurance Care Teams Education Program Specialist Relationship Specialty Start Date End Date Nancy Baker FNP [address] [place] [id number] PCP - General Nurse Practitioner Family 10/19/24
--- OUTSIDE RECORDS SUMMARY | 2025-02-09 14:32 | XMS_ITS | Clinical Summary ---
Author Organization [facility] [employer] Address [address] [facility] [place] [address] Care Team Providers Care Synthetic Resin Operator Name Role Phone Jose Angel Zuleta MD Primary Care Provider [phone] Source Comments [facility] [employer],non-owned Affiliates and Associated Physician Practices is amultiple site organization consisting of ambulatory clinics and hospital sitesin [place], [place], [place] and [place]. This disclosure is being madepursuant to the Care Everywhere program and may not contain all information available regarding this patient. Last updated 18.[facility] [employer] Allergies Active Allergy Reactions Criticality Noted Date [...] Comments Blood Pressure 126/84 12/30/2018 10:51 AM HEAD INSPECTOR Pulse 74 12/30/2018 10:51 AM HEAD INSPECTOR Temperature 37 C (98.6 F) 12/30/2018 10:51 AM HEAD INSPECTOR Respiratory Rate 16 12/30/2018 10:51 AM HEAD INSPECTOR Oxygen Saturation 96% 12/30/2018 10:51 AM HEAD INSPECTOR Inhaled Oxygen Concentration - - Weight 112.9 kg (249 lb) 12/30/2018 10:51 AM HEAD INSPECTOR Height 167.6 cm (5' 6 ) 12/30/2018 10:51 AM HEAD INSPECTOR Body Mass Index 40.19 12/30/2018 10:51 AM HEAD INSPECTOR Plan of Treatment Health Maintenance Due Date [...] VACCINE (1 - 2023-2 5 season) 2024 PNEUMOCOCCAL VACCINE 50+ (1 of 1 - PCV) 2024 ZOSTER VACCINE (1 of 2) 2024 DEPRESSION SCREENING 11/02/2024 INFLUENZA VACCINE (Season Ended) 2025 HIB VACCINE Aged Out No longer eligi [...] age to complete this topic Care Teams Synthetic Resin Operator Relationship Specialty Start Date End Date Jose Angel Zuleta MD [address] [place] [address] PCP - General Family Medicine 12/30/18
--- OUTSIDE RECORDS SUMMARY | 2025-02-09 14:32 | XMS_ITS | Continuity of Care Document ---
Author Organization [facility] Address [address] [place] [address] Phone Care Team Providers Care Hand Trimmer Name Role Phone Zambrano OD, Raghav Unavailable Unavailable Advance Directives Directive Yes / No Effective Date File Name No Information Encounters Encounter Description Practice Location Reason(s) For Visit Diagnoses Date Provider Providers Copied on Encounter [facility], [address], [place], [place], [id number], [place] tel:[phone] [facility] No Information Dec-1 4-200 5 Zambrano OD Raghav. [address] [facility] , [address], [place], [address], [place]. tel:[phone] Family History Family Member Type Diagnosis Age At Onset No Information Payers Payer name Insurance type Covered alliance party ID Authoriza tion(s) No Information Social History Type Description Quantity Date Captured Comments Sex Female Smoking Status No Information Chief Complaint And Reason For Visit No Information Reason For Referral Reason For Referral No Information History Of Present Illness Encounter Date Complaint History Of Prese nt Illness No Information Functional Status Date Functional Assessmen t No Information Instructions Date Instruction Additional Infor mation No Information Assessments Type Assessment Date No Information Patient Care Teams Name Effective Dates (start - stop) Status Members No Information
--- OUTSIDE RECORDS SUMMARY | 2025-02-09 14:32 | XMS_ITS | Referral Summary ---
Author Organization [facility] Address [address] [place] [address] Care Team Providers Care Property Maintenance Supervisor Name Role Phone Nancy Baker NP Primary Care Provider Encounters Date Type Department Care Team Description 11/30/2024 12:15 PM INSURANCE RISK SURVEYOR - 11/30/2024 11:59 PM INSURANCE RISK SURVEYOR Hospital Encounter [facility] [address] [address] Hiatal hernia Discharge Disposition: Discharge to home or self care 11/23/2024 Telephone [facility] Disease [place] [id number] [address] [phone] Sonya Ramirez RN from Last 3 Months [...] on file Legal Sex Female 1:47 PM INSURANCE RISK SURVEYOR Gender Identity Not on file Sexual Orientation Not on file Last Filed Vital Signs Vital Sign Reading Time Taken Comments Blood Pressure 151/77 11/30/2024 12:54 PM INSURANCE RISK SURVEYOR Pulse 76 11/30/2024 12:54 PM INSURANCE RISK SURVEYOR Temperature - - Respiratory Rate 20 11/30/2024 12:54 PM INSURANCE RISK SURVEYOR Oxygen Saturation - - Inhaled Oxygen Concentration - - Weight 113.4 kg (250 lb) 11/30/2024 12:54 PM INSURANCE RISK SURVEYOR Height 167.6 cm (5' 6 ) 11/30/2024 12:54 PM INSURANCE RISK SURVEYOR Body Mass Index 40.35 11/30/2024 12:54 PM INSURANCE RISK SURVEYOR Plan of Treatment Not on file Procedures Procedure Name Priority Date/Time Associated Diagnosis Comments HIGH RESOLUTION ESOPHAGEAL MOTILITY (MANOMETRY) Routine 11/30/2024 2:14 PM INSURANCE RISK SURVEYOR Hiatal hernia from Last 3 Months Results * High resolution esophageal motility (manometry) - (11/30/2024 2:14 PM INSURANCE RISK SURVEYOR) Anatomical Region Laterality Modality Other Zachary Melara MD GI LAB PROCEDURE ORDERABLES F inal Result from Last 3 Months Insurance auctionPAL ACCESS ANTHEM ACCESS Care Teams Property Maintenance Supervisor Relationship Specialty Start Date End Date Nancy Baker NP [address] [place] [id number] PCP - General Nurse Practitioner 11/30/24
--- OUTSIDE RECORDS SUMMARY | 2025-02-09 14:33 | XMS_ITS | Clinical Summary ---
Author Organization [facility] Address [address] [place] [address] Care Team Providers Care Veterinary Bacteriologist Name Role Phone Nancy Baker NP Primary Care Provider [phone] Allergies Active Allergy Reactions Criticality Noted Date [...] Department Care Team Description 11/30/2024 12:15 PM ANIMAL SERVICES OFFICER - 11/30/2024 11:59 PM ANIMAL SERVICES OFFICER Hospital Encounter [facility] Digestive Disease [place] [address] [address] Hiatal hernia Discharge Disposition: Discharge to home or self care 11/23/2024 Telephone [facility] Digestive Disease [place] [address] [address] Sonya Ramirez RN from Last [...] on file Legal Sex Female 1:47 PM ANIMAL SERVICES OFFICER Gender Identity Not on file Sexual Orientation Not on file Obstetrics History Last Filed Vital Signs Vital Sign Reading Time Taken Comments Blood Pressure 151/77 11/30/2024 12:54 PM ANIMAL SERVICES OFFICER Pulse 76 11/30/2024 12:54 PM ANIMAL SERVICES OFFICER Temperature - - Respiratory Rate 20 11/30/2024 12:54 PM ANIMAL SERVICES OFFICER Oxygen Saturation - - Inhaled Oxygen Concentration - - Weight 113.4 kg (250 lb) 11/30/2024 12:54 PM ANIMAL SERVICES OFFICER Height 167.6 cm (5' 6 ) 11/30/2024 12:54 PM ANIMAL SERVICES OFFICER Body Mass Index 40.35 11/30/2024 12:54 PM ANIMAL SERVICES OFFICER Plan of Treatment Health Maintenance Due Date [...] ESOPHAGEAL MOTILITY (MANOMETRY) Routine 11/30/2024 2:14 PM ANIMAL SERVICES OFFICER Hiatal hernia from Last 3 Months Results * High resolution esophageal motility (manometry) - (11/30/2024 2:14 PM ANIMAL SERVICES OFFICER) Anatomical Region Laterality Modality Other Zachary Melara MD GI LAB PROCEDURE ORDERABLES F inal Result from Last 3 Months Insurance [employer] ACCESS [employer] ACCESS Care Teams Veterinary Bacteriologist Relationship Specialty Start Date End Date Nancy Baker NP [address] [place] [id number] PCP - General Nurse Practitioner 11/30/24
== END 2025-02-09 13:57 | disposition home or self-care (01) ==
PROVIDERS: PCP Nurse Practitioner Family; Visit Provider Surgery
DX: R13.19 Other dysphagia (principal); Z98.890 Other specified postprocedural states
CPT/HCPCS: 74240

== ENCOUNTER 2025-02-19 07:01 | Observation (INO) | payer BC, SELFPAY ==
[2025-02-19] VITALS (7 sets, daily range): BP systolic 128–171; BP diastolic 71–110; PULSE 57–81; RESP 16–20; TEMP 36–36.7; O2SAT 98–100; BMI 37.3
--- NOTE | ~2025-02-19 | MR_ITS ---
EXAMINATION: MR MRCP wo/w con/w 3D wo ind DATE: 02/20/2025 14:51 INDICATION: Abnormal pancreatic head on prior CT TECHNIQUE: Magnetic resonance imaging (MRI) of the abdomen was performed without and with 20 mL Multi emiliano intravenous contrast. Sequences included coronal T2-weighted SS-FSE, coronal T2-weighted FS SS- FSE, coronal T2-weighted FS FIESTA, axial T2-weighted FS FIESTA, axial T2-weighted FIESTA, sagittal T 2-weighted SS-FSE, axial T1-weighted dual-echo FSPGR, axial T2-weighted SS-FSE, axial T1-weighted LAV A, axial T2-weighted STIR FSE. Thick-slab T2-weighted FRFSE-XL images were obtained for magnetic reso nance cholangiopancreatography (MRCP). Rotating maximum intensity projection 3-D reconstructions of t he volumetric data were created by the technologist. Postcontrast sequences included a time course of axial T1-weighted LAVA. COMPARISON: CT dated 02/19/2025 FINDINGS: Small posterior layering left pleural effusion and tiny right pleural effusion at the posterior sulcu s. Discoid atelectasis in the left lower lobe. Heart size is normal. No pericardial or pleural effusi on. Liver, gallbladder and bilateral adrenal glands are normal. Pancreas appears normal. Normal calib er common bile duct measuring 3 mm in maximal diameter. The main pancreatic duct is also normal. A fe w bilateral subcentimeter T2 hyperintense nonenhancing renal cysts. Prior left hydronephrosis resolve d. There are some residual left perinephric and periureteral stranding likely related to prior obstru cting stone there is suggestion of a subtle linear low signal intensity intraluminal ureteral stent e xtending cephalad through the left ureter and into an upper pole calyx of the left kidney. 1 cm T2 hy perintense likely splenic hemangioma with mild peripheral enhancement which progressively fills in on the 5 minute delayed imaging. Visualized portions of bowels are unremarkable. No pathologically enla rged abdominal or upper pelvic lymphadenopathy. L5-S1 anterior spinal fusion with metallic field radhika fact associated with an anterior fixation device. IMPRESSION: 1. Normal pancreas. 2. Resolution of prior left hydronephrosis with some residual left perinephric and perirenal strandin g likely related to a previously seen obstructing left ureteral stone which is presumably been extrac quique with a left intraureteral stent in expected position. 3. Small left and very small right pleural effusions. Reviewed, dictated and finalized at location A. IMPRESSION: 1. Normal pancreas. 2. Resolution of prior left hydronephrosis with some residual left perinephric and perirenal stranding likely related to a previously seen obstructing left ur eteral stone which is presumably been extracted with a left intraureteral stent in expected position. 3. Small left and very small right pleural effusions.
--- NOTE | ~2025-02-19 | CT_ITS ---
EXAMINATION: CT abdomen pelvis wo con DATE: 02/19/2025 07:52 INDICATION: Left flank pain TECHNIQUE: Computed tomography (CT) of the abdomen and pelvis was performed without intravenous contr ast. The dose-length product was 640.23 mGy-cm. Automated exposure control and iterative reconstructi on technique were employed. COMPARISON: 10/21/2020. FINDINGS: Small left pleural effusion. Heart size normal. Moderate size hiatal hernia. The liver, spl een, adrenal glands and are unremarkable. There is a possible subtle hypodense mass of the pancreatic head. Correlation with MRI recommended. There is an 8 mm proximal left ureteral stone with hydroneph rosis. Nonobstructive bowel gas pattern. No abnormal pelvic masses or fluid collections. Gallbladder is present. Fatty infiltration of the liver. Status post fusion at L5-S1. IMPRESSION: 1. Proximal left ureteral/UPJ stone measuring 8 mm with mild-moderate hydronephrosis. 2: Possible subtle low density mass of the pancreatic head. Correlation with MRI abdomen without and with contrast recommended. Reviewed, dictated and finalized at location A. IMPRESSION: 1. Proximal left ureteral/UPJ stone measuring 8 mm with mild-moderate hydroneph rosis. 2: Possible subtle low density mass of the pancreatic head. Correlation with M RI abdomen without and with contrast recommended.
--- NOTE | ~2025-02-19 | XR_ITS ---
INTRAOPERATIVE FLUOROSCOPY: CLINICAL HISTORY: 49 years old Female; LEFT STENT PLACEMENT PROCEDURE COMMENTS: Limited intraoperative fluoroscopy of the abdomen was performed. CUMULATIVE DOSE: 15.5 mGy FLUOROSCOPY TIME: 33.7 seconds FINDINGS/IMPRESSION: Please refer to operative note for further details. Reviewed, dictated and finalized at location A.
--- OUTSIDE RECORDS SUMMARY | 2025-02-19 07:03 | XMS_ITS | Clinical Summary ---
Author Organization [facility] Address [address] [facility] [address] Care Team Providers Care Twine Winder Name Role Phone Jose Angel Zuleta MD Primary Care Provider [phone] Source Comments [facility],non-owned Affiliates and Associated Physician Practices is amultiple site organization consisting of ambulatory clinics and hospital sitesin [place], [place], [place] and [place]. This disclosure is being madepursuant to the Care Everywhere program and may not contain all information available regarding this patient. Last updated 18.[facility] Allergies Active Allergy Reactions Criticality Noted Date Comments Penicillins Urticaria Medium 12/30/2018 Ondansetron Vomiting 12/30/2018 Medications * Be aware that medications may not be up to date on this document. Alwaysverify current medications with the patient. No known medications Social History Tobacco Use Types Packs/Day Years Used Date Smoking Tobacco: Former Smokeless Tobacco: Never Comments No Sex and Gender Information Value Date Recorded Sex Assigned at Not on file Legal Sex Female 6:33 AM BALLROOM DANCE INSTRUCTOR Gender Identity Not on file Sexual Orientation Not on file Last Filed Vital Signs Vital Sign Reading Time Taken Comments Blood Pressure 126/84 12/30/2018 10:51 AM BALLROOM DANCE INSTRUCTOR Pulse 74 12/30/2018 10:51 AM BALLROOM DANCE INSTRUCTOR Temperature 37 C (98.6 F) 12/30/2018 10:51 AM BALLROOM DANCE INSTRUCTOR Respiratory Rate 16 12/30/2018 10:51 AM BALLROOM DANCE INSTRUCTOR Oxygen Saturation 96% 12/30/2018 10:51 AM BALLROOM DANCE INSTRUCTOR Inhaled Oxygen Concentration - - Weight 112.9 kg (249 lb) 12/30/2018 10:51 AM BALLROOM DANCE INSTRUCTOR Height 167.6 cm (5' 6 ) 12/30/2018 10:51 AM BALLROOM DANCE INSTRUCTOR Body Mass Index 40.19 12/30/2018 10:51 AM BALLROOM DANCE INSTRUCTOR Plan of Treatment Health Maintenance Due Date [...] on patient's age to complete this topic Insurance NAVEED Care Teams Twine Winder Relationship Specialty Start Date End Date Jose Angel Zuleta MD [address] [place] [address] PCP - General Family Medicine 12/30/18
--- OUTSIDE RECORDS SUMMARY | 2025-02-19 07:03 | XMS_ITS | Continuity of Care Document ---
Author Organization [employer] Address [address] [place] [address] Phone Care Team Providers Care Object Oriented Programmer Name Role Phone Beth Henriquez NP Unavailable [...] Diagnoses Date Provider Providers Copied on Encounter [facility], [address], [place], [place], [facility], tel:[phone] [place] No Information Jul- 2 Bonnieanjel Campos. [address] [place] [address], [place], [place], [id number], . tel:[phone] OFFICE/OUTPAT IENT VISIT, EST [facility], [address], [facility], tel:[phone] [place] follow up (chief complaint) Rheumatism, unspecified and fibrositisCe rvicalgiaLow back painFatigue / MalaiseEncou nter for therapeutic drug monitoringUn specified vitamin d deficiency 5 [employer]. [address], [facility], [place], [address], [place]. tel:[phone] Referring Provider: Faye Verdin, [address] [place], [place] [id number], [place], [address]. tel:[phone] OFFICE CONSULTATION [facility], [address], [place], [facility], tel:[phone] [place] generalized pain and fatigue (chief complaint) CervicalgiaL ow back painRheumati sm, unspecified and fibrositisFa tigue / MalaiseEncou nter for therapeutic drug monitoring 0 5 [employer]. [address], [place], [address], [place]. tel:[phone] Referring Provider: Faye Verdin, [facility] [address], [place], [address]. tel:[phone] Family History Family Member Type Diagnosis Age At Onset Father Problem (finding) hypertension Mother Problem (finding) hypertension Payers Payer name Insurance type Covered republican ID Authoriza tion(s) No Information Social History Type Description Quantity Date Captured Comments Sex Female Smoking Status No Information Chief Complaint And Reason For Visit No Information Reason For Referral Reason For Referral No Information Plan Of Treatment Date Type Action Status Future Order: Radiology Order Fo ot X-ray; Limited (2 views) ([id number]), Ordered on: Ordered Future Order: Radiology Order Dill nd X-ray; Limited (2 views) ([id number]), Collected on: Ordered History Of Present Illness Encounter Date Complaint History Of Prese nt Illness follow up generalized pain and fatigue Functional Status Date Functional Assessmen t No Information Instructions Date Instruction Additional Infor mation No Information Assessments Type Assessment Date No Information Patient Care Teams Name Effective Dates (start - stop) Status Members No Information
--- OUTSIDE RECORDS SUMMARY | 2025-02-19 07:03 | XMS_ITS | Clinical Summary ---
Author Organization [facility] Address [address] [place] [address] Care Team Providers Care Fusing Machine Feeder Name Role Phone Nancy Baker NP Primary Care Provider [phone] Allergies Active Allergy Reactions Criticality Noted Date [...] Department Care Team Description 11/30/2024 12:15 PM FIXTURE MAKER - 11/30/2024 11:59 PM FIXTURE MAKER Hospital Encounter [facility] [place] [address] [address] Hiatal hernia Discharge Disposition: Discharge to home or self care 11/23/2024 Telephone [facility] [place] [address] [address] Sonya Ramirez RN from Last [...] on file Legal Sex Female 1:47 PM FIXTURE MAKER Gender Identity Not on file Sexual Orientation Not on file Obstetrics History Last Filed Vital Signs Vital Sign Reading Time Taken Comments Blood Pressure 151/77 11/30/2024 12:54 PM FIXTURE MAKER Pulse 76 11/30/2024 12:54 PM FIXTURE MAKER Temperature - - Respiratory Rate 20 11/30/2024 12:54 PM FIXTURE MAKER Oxygen Saturation - - Inhaled Oxygen Concentration - - Weight 113.4 kg (250 lb) 11/30/2024 12:54 PM FIXTURE MAKER Height 167.6 cm (5' 6 ) 11/30/2024 12:54 PM FIXTURE MAKER Body Mass Index 40.35 11/30/2024 12:54 PM FIXTURE MAKER Plan of Treatment Health Maintenance Due Date [...] ESOPHAGEAL MOTILITY (MANOMETRY) Routine 11/30/2024 2:14 PM FIXTURE MAKER Hiatal hernia from Last 3 Months Results * High resolution esophageal motility (manometry) - (11/30/2024 2:14 PM FIXTURE MAKER) Anatomical Region Laterality Modality Other Zachary Melara MD GI LAB PROCEDURE ORDERABLES F inal Result from Last 3 Months Insurance [employer] ACC[employer] ACC[employer] Care Teams Fusing Machine Feeder Relationship Specialty Start Date End Date Nancy Baker NP [address] [place] [address] PCP - General Nurse Practitioner 11/30/24
--- OUTSIDE RECORDS SUMMARY | 2025-02-19 07:03 | XMS_ITS | Continuity of Care Document ---
Author Organization [facility] Address [address] [facility] [address] [place] [address] Phone Care Team Providers Care Fur Stretcher Name Role Phone Zambrano OD, Raghav Unavailable Unavailable Advance Directives Directive Yes / No Effective Date File Name No Information Encounters Encounter Description Practice Location Reason(s) For Visit Diagnoses Date Provider Providers Copied on Encounter [facility], [address], [place], [place], [id number], [place] tel:[phone] [facility] [place] No Information Dec-1 4-200 5 Zambrano OD Raghav. [address] [facility] [place] , [address], [place], [address], [place]. tel:[phone] Family History Family Member Type Diagnosis Age At Onset No Information Payers Payer name Insurance type Covered republican [...]
--- OUTSIDE RECORDS SUMMARY | 2025-02-19 07:03 | XMS_ITS | Referral Summary ---
Author Organization [facility] Address [address] [place] [address] Care Team Providers Care Caisson Worker Name Role Phone Nancy Baker NP Primary Care Provider Encounters Date Type Department Care Team Description 11/30/2024 12:15 PM GREETER GUEST SERVICES - 11/30/2024 11:59 PM GREETER GUEST SERVICES Hospital Encounter [facility] [address] [address] Hiatal hernia Discharge Disposition: Discharge to home or self care 11/23/2024 Telephone [facility] Disease [place] [phone] [address] [phone] Sonya Ramirez RN from Last 3 Months [...] on file Legal Sex Female 1:47 PM GREETER GUEST SERVICES Gender Identity Not on file Sexual Orientation Not on file Last Filed Vital Signs Vital Sign Reading Time Taken Comments Blood Pressure 151/77 11/30/2024 12:54 PM GREETER GUEST SERVICES Pulse 76 11/30/2024 12:54 PM GREETER GUEST SERVICES Temperature - - Respiratory Rate 20 11/30/2024 12:54 PM GREETER GUEST SERVICES Oxygen Saturation - - Inhaled Oxygen Concentration - - Weight 113.4 kg (250 lb) 11/30/2024 12:54 PM GREETER GUEST SERVICES Height 167.6 cm (5' 6 ) 11/30/2024 12:54 PM GREETER GUEST SERVICES Body Mass Index 40.35 11/30/2024 12:54 PM GREETER GUEST SERVICES Plan of Treatment Not on file Procedures Procedure Name Priority Date/Time Associated Diagnosis Comments HIGH RESOLUTION ESOPHAGEAL MOTILITY (MANOMETRY) Routine 11/30/2024 2:14 PM GREETER GUEST SERVICES Hiatal hernia from Last 3 Months Results * High resolution esophageal motility (manometry) - (11/30/2024 2:14 PM GREETER GUEST SERVICES) Anatomical Region Laterality Modality Other Zachary Melara MD GI LAB PROCEDURE ORDERABLES F inal Result from Last 3 Months Insurance [employer] ACCESS ANTHEM ACCESS Care Teams Caisson Worker Relationship Specialty Start Date End Date Nancy Baker NP [address] [place] [address] PCP - General Nurse Practitioner 11/30/24
--- OUTSIDE RECORDS SUMMARY | 2025-02-19 07:03 | XMS_ITS | Clinical Summary ---
Author Organization [facility] Address [facility] [place] [address] Care Team Providers Care Mill Hand Name Role Phone Nancy Baker FUR STYLIST Primary Care Provider Allergies Active Allergy Reactions [...] - 2023-2 5 season) 2024 02/01/2021, 01/11/2021 Pneumococcal Vaccine: 50+ Years (1 of 1 - PCV) 2024 Zoster Vaccines (1 of 2) 2024 [...] the left lateral decubitus position, the Olympus [id number] endoscope was used to easily intubate the [...] the left lateral decubitus position, the Olympus [id number] colonoscope was introduced into the rectum and [...] Relevant to Health Maintenance Insurance Care Teams Mill Hand Relationship Specialty Start Date End Date Nancy Baker FNP [address] [place] [address] PCP - General Nurse Practitioner Family 10/19/24
--- OUTSIDE RECORDS SUMMARY | 2025-02-19 07:23 | XMS_ITS | Continuity of Care Document ---
Author Organization [employer] Address [address] [place] [address] Phone Care Team Providers Care Director Telehealth Name Role Phone Beth Henriquez NP Unavailable [...] Diagnoses Date Provider Providers Copied on Encounter [facility], [address], [place], [place], [facility], tel:[phone] [place] No Information Jul- 2 Bonnieanjel Campos. [address] [place] [address], [place], [place], [id number], . tel:[phone] OFFICE/OUTPAT IENT VISIT, EST [facility], [address], [facility], tel:[phone] [place] follow up (chief complaint) Rheumatism, unspecified and fibrositisCe rvicalgiaLow back painFatigue / MalaiseEncou nter for therapeutic drug monitoringUn specified vitamin d deficiency 5 [place] [employer]. [address] [facility] [address], [place], [address], [place]. tel:[phone] Referring Provider: Faye Verdin, [address] [place], [place] [id number], [place], [address]. tel:[phone] OFFICE CONSULTATION [facility], [address], [place], [place], [facility], tel:[phone] [place] generalized pain and fatigue (chief complaint) CervicalgiaL ow back painRheumati sm, unspecified and fibrositisFa tigue / MalaiseEncou nter for therapeutic drug monitoring 0 5 [place] [facility]. [address], [place], [address], [place]. tel:[phone] Referring Provider: Faye Verdin, [facility] [facility] [address], [place], [address]. tel:[phone] Family History Family Member Type Diagnosis Age At Onset Father Problem (finding) hypertension Mother Problem (finding) hypertension Payers Payer name Insurance type Covered green party ID Authoriza tion(s) No Information Social History Type Description Quantity Date Captured Comments Sex Female Smoking Status No Information Chief Complaint And Reason For Visit No Information Reason For Referral Reason For Referral No Information Plan Of Treatment Date Type Action Status Future Order: Radiology Order Fo ot X-ray; Limited (2 views) ([id number]), Ordered on: Ordered Future Order: Radiology Order Dill nd X-ray; Limited (2 views) ([id number]), Collected on: Ordered History Of Present Illness Encounter Date Complaint History Of Prese nt Illness follow up generalized pain and fatigue Functional Status Date Functional Assessmen t No Information Instructions Date Instruction Additional Infor mation No Information Assessments Type Assessment Date No Information Patient Care Teams Name Effective Dates (start - stop) Status Members No Information
--- OUTSIDE RECORDS SUMMARY | 2025-02-19 07:23 | XMS_ITS | Continuity of Care Document ---
Author Organization [facility] Address [address] [facility] [address] [place] [address] Phone Care Team Providers Care Cheese Pancake Roller Name Role Phone Zambrano OD, Raghav Unavailable Unavailable Advance Directives Directive Yes / No Effective Date File Name No Information Encounters Encounter Description Practice Location Reason(s) For Visit Diagnoses Date Provider Providers Copied on Encounter [facility], [address], [place], [place], [id number], [place] tel:[phone] [facility] [place] No Information Dec-1 4-200 5 Zambrano OD Raghav. [address] [facility] [place] , [address], [place], [address], [place]. tel:[phone] Family History Family Member Type Diagnosis Age [...]
[2025-02-19 07:45] LABS: Add Urine Microscopic? YES; Appearance Urine Turbid (Clear); Bacteria Urine 4+ /hpf; Bilirubin Urine 1+ (Negative); Blood Urine 3+ (Negative); Calcium Oxalate Crystals Urine Present /hpf; Color Urine Dark Yellow (Yellow); Glucose Urine UA Negative (Negative); Ketones Urine Trace mg/dL (Negative); Leukocyte Esterase Ur Trace LEU/UL (Negative); Need Manual Microscopic Reviewed; Nitrate Urine Negative (Negative); Non Pathogenic Casts 0-2; Protein Urine 2+ mg/dL (Negative); RBC Urine >100 /hpf (0-2); Specific Grav Ur 1.025 (1.001-1.035); Squamous Epithelial Cell Urine Moderate /hpf (Few); WBC Urine 21-50 /hpf (0-3)
--- NOTE | 2025-02-19 07:49 | PC.NURSE ---
This RN unable to obtain IV access, EDP aware.
[2025-02-19] MEDS: TRIMETHOBENZAMIDE HCL 200 MG/2 ML VIAL IM ×2 (07:55→09:40)
--- NOTE | 2025-02-19 07:55 | ED_ITS ---
HPI - Female Genitourinary General Chief complaint: Urogenital-Female Stated complaint: flank pain Time Seen by Provider: 02/19/25 07:10 History of Present Illness HPI Narrative: Patient has history of kidney stones from years ago, yesterday started having severe pain to her left flank, with nausea vomiting and dysuria. Related Data Home Medications ?Medication ?Instructions ?Recorded ?Confirmed ?Last Taken ?Type MEDICAL MARIJUANA 100 mg PO HS PAIN 01/17/25 02/19/25 02/18/25 History gabapentin 300 mg capsule 300 mg PO TID PRN pain 01/17/25 02/19/25 02/18/25 History Allergies Allergy/AdvReac Type Severity Reaction Status Date / Time amoxicillin Allergy Severe Hives Verified 02/19/25 07:19 Penicillins Allergy Unknown Hives Verified 02/19/25 07:19 codeine AdvReac Unknown Palpitation Verified 02/19/25 07:19 s ondansetron AdvReac Unknown violent Verified 02/19/25 07:19 vomiting Review of Systems 2 Review of Systems: All systems reviewed & are unremarkable except as noted in HPI and below PMFSH Past Medical History Medical History ) Morbid obesity Insomnia Kidney stones IBS (irritable bowel syndrome) Headache, migraine GERD (gastroesophageal reflux disease) Anxiety Fibromyalgia Surgical History Surgical History ) History of repair of hiatal hernia 01/25/25 Robotic laparoscopic repair hiatal hernia with partial fundoplication H/O cervical spine surgery Plantar fasciitis of right foot H/O spinal fusion C4/C5 2014 L5/S1 2015 H/O tubal ligation 2010 Previous delivery, delivered 1999,2007.2009 H/O removal of cyst right breast 2010 History of surgery on left wrist Reconstructive bone placement with k-wires in 1993 [place] teeth extracted 1990 H/O adenoidectomy 1983 History of tonsillectomy 1983 H/O abdominal hysterectomy Family History Family History ) Father Hypertension Mother Thyroid disorder Sibling Depression Anxiety Grandparent Breast cancer Diabetes mellitus Brain cancer Leukemia Social History Social History ) Social History: 10/19/24 very confident with medical forms Smoking packs per day: 1 Smoking cigarettes per day: 20.0 Years smoked: 20 Smoking pack-years: 20.00 Smoking status: Former smoker Alcohol intake: never Substance use: former Substance use type: marijuana Other substance usage details: Medical, gummies Do You Feel Safe in your Home?: Yes Lack of Transportation: No Lack of Food: Never True Current Housing: I Have Housing Concerned About Future Housing: No Difficulty Paying Gas/Electric Bills: No Difficulty Paying for Meds: No Currently Unemployed: No Education: Trade/Vocational Certificate Difficulty w/ Childcare or Family Care: No Living arrangements: with family Occupation/Education: other Gender identity (if verbalized by the patient): Female Spiritual care concerns: No Agree to blood products: Yes Exam 2 Narrative: EXAMINATION OF ORGAN SYSTEMS/BODY AREAS: Constitutional: Vital signs per nursing GENERAL: Appears extremely uncomfortable, actively retching HEAD: Normal with no signs of head trauma. EYES: EOMI, conjunctiva normal ENT: Hearing grossly intact LUNGS: Nonlabored breathing. HEART: [Regular rate and rhythm] ABD: [Soft], left flank pain EXT: Normal range of motion SKIN: [No rashes or lesions.] NEURO: [Alert and oriented x 3. No gross focal sensory or strength deficits.] PSYCH: Normal affect Course Vital Signs Vital signs: Vital Signs Temperature 97.6 F 02/19/25 07:15 Pulse Rate 81 02/19/25 07:15 Respiratory Rate 20 02/19/25 07:15 Blood Pressure 160/110 H 02/19/25 07:15 Pulse Oximetry 100 02/19/25 07:15 Temperature 98.1 F 02/19/25 10:19 Pulse Rate 68 02/19/25 10:19 Respiratory Rate 18 02/19/25 10:19 Blood Pressure 168/84 H 02/19/25 10:19 Pulse Oximetry 98 02/19/25 10:19 Procedures EJ/Peripheral Line Arm R: EJ/Peripheral Line Date: 02/19/25 EJ/Peripheral Line Time: 07:56 Skin Cleansed in Sterile Fashion: Yes Ultrasound Guided: Yes Size (gauge): 18 IV Secured and Dressing Applied: Yes Patient Tolerated Procedure: well and no complications MDM - Female Genitourinary MDM Narrative Medical decision making narrative: Patient has history of kidney stones from years ago, yesterday started having severe pain to her left flank, with nausea vomiting and dysuria. Patient unable to tolerate Zofran after multiple bad experiences worsening her nausea so I have tried Tigan. IV morphine given. I suspect likely kidney stone versus infection. Urinalysis does show blood but also WBCs and bacteria, so she will be started on ceftriaxone. CT shows left UPJ stone 8 mm. Discussed the urologist who will plan on taking patient to OR today for stent placement. I did update the patient that she would have to be admitted for the infected stone. She is agreeable to this plan. Discussed with hospitalist. Lab Data 02/19/25 08:00 02/19/25 08:00 Labs: Lab Results 02/19/25 02/19/25 Range/Units 07:25 08:00 WBC 9.8 (4.5-10.0) K/mm3 RBC 5.71 H (4.2-5.4) M/mm3 Hgb 16.6 H D (12.0-15.0) g/dL Hct 49.5 H (37.0-47.0) % MCV 86.7 (80-100) fl MCH 29.1 (26-34) pg MCHC 33.5 (32-36) g/dl RDW 12.9 (11.5-14.5) % Plt Count 317 D (150-375) k/mm3 MPV 12.1 H (7.4-10.4) fl Immature Gran % (Auto) 0.6 H (0-0.5) % Neut % (Auto) 62.5 (45.5-73.1) % Lymph % (Auto) 30.2 (18.3-44.2) % [place] % (Auto) 6.2 (2.6-8.5) % Eos % (Auto) 0.2 (0-4.4) % Baso % (Auto) 0.3 (0.2-1.2) % Lymph # (Auto) 2.97 (0.9-3.2) K/mm3 Roane # (Auto) 0.6 (0.1-0.6) K/mm3 Eos # (Auto) 0.0 (0-0.3) K/mm3 Baso # (Auto) 0.0 (0.0-0.1) K/mm3 Abs Immat Gran (auto) 0.06 H (0.00-0.031) K/mm3 Absolute Neuts (auto) 6.1 (1.3-6.7) K/mm3 Absolute Nucleated RBC 0.000 (0.0-0.012) K/mm3 Nucleated RBC % 0.0 (0.0-0.2) % Sodium 140 (137-145) mmol/L Potassium 3.6 (3.4-5.0) mmol/L Chloride 106 (98-107) mmol/L Carbon Dioxide 18 L (22-30) mmol/L Anion Gap 16 H (4-12) mmol/L BUN 10 D (7-17) mg/dL Creatinine 0.96 (0.7-1.0) mg/dL Estim Creat Clear Calc 76 ml/min Estimated GFR > 60 (59 - ) Glucose 109 (65-110) mg/dL Calcium 9.7 (8.4-10.2) mg/dL Total Bilirubin 1.9 H (0.2-1.3) mg/dL AST 107 H (14-36) U/L ALT 158 H (6-35) U/L Alkaline Phosphatase 111 (38-126) U/L Total Protein 8.0 (6.3-8.2) g/dL Albumin 4.6 (3.5-5.1) g/dL Lipase 99 (23-300) U/L Urine Color Dark yellow (Yellow) Urine Appearance Turbid H (Clear) Urine pH 6.0 (5.0-9.0) Ur Specific [place] 1.025 (1.001-1.035) Urine Protein 2+ H (Negative) mg/dL Urine Glucose (UA) Negative (Negative) mg/dL Urine Ketones Trace H (Negative) mg/dL Ur Blood (Man) 3+ H (Negative) Urine Nitrate Negative (Negative) Urine Bilirubin 1+ H (Negative) Urine Urobilinogen 1.0 (<2.0) mg/dL Add Ur Microanalysis Reviewed Leukocyte Esterase Rfl Trace H (Negative) ROEL/UL Urine RBC >100 H (0-2) /hpf Urine WBC 21-50 H (0-3) /hpf Ur Squamous Epith Cells Moderate (Few) /hpf Calcium Oxalate Crystal Present (None) /hpf Urine Bacteria 4+ H /hpf Urine Casts 0-2 Discharge Plan Discharge Clinical Impression: Left ureteral calculus, Urinary tract infection Patient Disposition: Still a Patient Condition: Stable
[2025-02-19] MEDS: MORPHINE SULFATE (*CRX) 4 MG/ML INJ IV PUSH ×2 (07:57→09:41)
[2025-02-19 08:06] LABS: Basophils Percent Auto 0.3 % (0.2-1.2); Eosinophils Percent Auto 0.2 % (0-4.4); Hematocrit 49.5 % (37.0-47.0); Hemoglobin 16.6 g/dL (12.0-15.0); Immature Granulocyte Absolute 0.06 K/mm3 (0.00-0.031); Immature Granulocyte Percent A 0.6 % (0-0.5); Lymphocytes Absolute Auto 2.97 K/mm3 (0.9-3.2); Lymphocytes Percent Auto 30.2 % (18.3-44.2); Mean Corpuscular HGB Conc 33.5 g/dl (32-36); Mean Corpuscular Hemoglobin 29.1 pg (26-34); Mean Corpuscular Volume 86.7 fl (80-100); Mean Platelet Volume 12.1 fl (7.4-10.4); Monocytes Absolute Auto 0.6 K/mm3 (0.1-0.6); Monocytes Percent Auto 6.2 % (2.6-8.5); Neutrophils Absolute Auto 6.1 K/mm3 (1.3-6.7); Neutrophils Percent Auto 62.5 % (45.5-73.1); Platelet Count Result 317 k/mm3 (150-375); Red Blood Count 5.71 M/mm3 (4.2-5.4); Red Cell Distribution Width 12.9 % (11.5-14.5); White Blood Count 9.8 K/mm3 (4.5-10.0)
[2025-02-19] MEDS: cefTRIAXone 2 GM/NS 100 ML 2 GM/100 ML BAG IVPB (08:06)
[2025-02-19 08:17] LABS: Alanine Aminotransferase 158 U/L (6-35); Albumin Level 4.6 g/dL (3.5-5.1); Alkaline Phosphatase 111 U/L (38-126); Anion Gap 16 mmol/L (4-12); Aspartate Amino Transferase 107 U/L (14-36); Bilirubin,Total 1.9 mg/dL (0.2-1.3); Blood Urea Nitrogen 10 mg/dL (7-17); Calcium 9.7 mg/dL (8.4-10.2); Carbon Dioxide 18 mmol/L (22-30); Chloride 106 mmol/L (98-107); Estimated CRCL calculation 76 ml/min; Estimated Glomerular Filt Rate > 60; Glucose 109 mg/dL (65-110); Lipase 99 U/L (23-300); Potassium 3.6 mmol/L (3.4-5.0); Sodium 140 mmol/L (137-145)
--- NOTE | 2025-02-19 10:39 | ADMGEN ---
This patient, Debra Youssef, was admitted to 3 [facility] Surg Room 328-01. Patient/family oriented to hospital policies and general routines including ID bracelet, bed and alarms, visiting hours, pain management, procedures, bathroom and other care routines, personal items, smoking policy, room service/diet, and visiting hours. Information on how to activate the Rapid Response Team has been discussed. Patient/Family are encouraged to report perceived risks to care and to ask questions if they do not understand what they are told or what they should do.
--- OUTSIDE RECORDS SUMMARY | 2025-02-19 11:01 | XMS_ITS | Referral Summary ---
Author Organization [facility] Address [address] [place] [address] Care Team Providers Care Roof Truss Machine Tender Name Role Phone Nancy Baker NP Primary Care Provider Encounters Date Type Department Care Team Description 11/30/2024 12:15 PM SUPERVISOR PAYROLL - 11/30/2024 11:59 PM SUPERVISOR PAYROLL Hospital Encounter [facility] Digestive Disease [address] [address] Hiatal hernia Discharge Disposition: Discharge to home or self care 11/23/2024 Telephone [facility] Disease [place] [phone] [address] [phone] Sonya Ramirez RN from Last 3 Months [...] on file Legal Sex Female 1:47 PM SUPERVISOR PAYROLL Gender Identity Not on file Sexual Orientation Not on file Last Filed Vital Signs Vital Sign Reading Time Taken Comments Blood Pressure 151/77 11/30/2024 12:54 PM SUPERVISOR PAYROLL Pulse 76 11/30/2024 12:54 PM SUPERVISOR PAYROLL Temperature - - Respiratory Rate 20 11/30/2024 12:54 PM SUPERVISOR PAYROLL Oxygen Saturation - - Inhaled Oxygen Concentration - - Weight 113.4 kg (250 lb) 11/30/2024 12:54 PM SUPERVISOR PAYROLL Height 167.6 cm (5' 6 ) 11/30/2024 12:54 PM SUPERVISOR PAYROLL Body Mass Index 40.35 11/30/2024 12:54 PM SUPERVISOR PAYROLL Plan of Treatment Not on file Procedures Procedure Name Priority Date/Time Associated Diagnosis Comments HIGH RESOLUTION ESOPHAGEAL MOTILITY (MANOMETRY) Routine 11/30/2024 2:14 PM SUPERVISOR PAYROLL Hiatal hernia from Last 3 Months Results * High resolution esophageal motility (manometry) - (11/30/2024 2:14 PM SUPERVISOR PAYROLL) Anatomical Region Laterality Modality Other Zachary Melara MD GI LAB PROCEDURE ORDERABLES F inal Result from Last 3 Months Insurance [employer] ACCESS ANTHEM ACCESS Care Teams Roof Truss Machine Tender Relationship Specialty Start Date End Date Nancy Baker NP [address] [place] [id number] PCP - General Nurse Practitioner 11/30/24
--- OUTSIDE RECORDS SUMMARY | 2025-02-19 11:01 | XMS_ITS | Clinical Summary ---
Author Organization [facility] Address [facility] [place] [address] Care Team Providers Care Tag Maker Name Role Phone Nancy Baker AUTO PARTS PROFESSIONAL Primary Care Provider [phone] Allergies Active Allergy Reactions Criticality Noted Date [...] the left lateral decubitus position, the Olympus [id number] endoscope was used to easily intubate the [...] the left lateral decubitus position, the Olympus [id number] colonoscope was introduced into the rectum and [...] Relevant to Health Maintenance Insurance Care Teams Tag Maker Relationship Specialty Start Date End Date Nancy Baker FNP [address] [place] [address] PCP - General Nurse Practitioner Family 10/19/24
--- OUTSIDE RECORDS SUMMARY | 2025-02-19 11:01 | XMS_ITS | Clinical Summary ---
Author Organization [facility] Address [address] [address] Care Team Providers Care Crew Caller Name Role Phone Jose Angel Zuleta MD Primary Care Provider [phone] Source Comments [facility],non-owned Affiliates and Associated Physician Practices is amultiple site organization consisting of ambulatory clinics and hospital sitesin [place], [place] and [place]. This disclosure is being madepursuant to the Care Everywhere program and may not contain all information available regarding this patient. Last updated 18.[facility] Allergies Active Allergy Reactions Criticality Noted Date [...] on file Legal Sex Female 6:33 AM [employer] Gender Identity Not on file Sexual Orientation Not on file Last Filed Vital Signs Vital Sign Reading Time Taken Comments Blood Pressure 126/84 12/30/2018 10:51 AM [employer] Pulse 74 12/30/2018 10:51 AM [employer] Temperature 37 C (98.6 F) 12/30/2018 10:51 AM [employer] Respiratory Rate 16 12/30/2018 10:51 AM [employer] Oxygen Saturation 96% 12/30/2018 10:51 AM [employer] Inhaled Oxygen Concentration - - Weight 112.9 kg (249 lb) 12/30/2018 10:51 AM [employer] Height 167.6 cm (5' 6 ) 12/30/2018 10:51 AM [employer] Body Mass Index 40.19 12/30/2018 10:51 AM [employer] Plan of Treatment Health Maintenance Due Date [...] complete this topic Insurance NAVEED Care Teams Crew Caller Relationship Specialty Start Date End Date Jose Angel Zuleta MD [address] [place] [address] PCP - General Family Medicine 12/30/18
--- OUTSIDE RECORDS SUMMARY | 2025-02-19 11:01 | XMS_ITS | Clinical Summary ---
Author Organization [facility] Address [address] [place] [address] Care Team Providers Care [employer] Name Role Phone Nancy Baker NP Primary Care Provider [phone] Allergies Active Allergy Reactions Criticality Noted Date [...] Department Care Team Description 11/30/2024 12:15 PM ROOM SERVICE SUPERVISOR - 11/30/2024 11:59 PM ROOM SERVICE SUPERVISOR Hospital Encounter [facility] [address] [address] Hiatal hernia Discharge Disposition: Discharge to home or self care 11/23/2024 Telephone [facility] [address] [address] Sonya Ramirez RN from Last [...] on file Legal Sex Female 1:47 PM ROOM SERVICE SUPERVISOR Gender Identity Not on file Sexual Orientation Not on file Obstetrics History Last Filed Vital Signs Vital Sign Reading Time Taken Comments Blood Pressure 151/77 11/30/2024 12:54 PM ROOM SERVICE SUPERVISOR Pulse 76 11/30/2024 12:54 PM ROOM SERVICE SUPERVISOR Temperature - - Respiratory Rate 20 11/30/2024 12:54 PM ROOM SERVICE SUPERVISOR Oxygen Saturation - - Inhaled Oxygen Concentration - - Weight 113.4 kg (250 lb) 11/30/2024 12:54 PM ROOM SERVICE SUPERVISOR Height 167.6 cm (5' 6 ) 11/30/2024 12:54 PM ROOM SERVICE SUPERVISOR Body Mass Index 40.35 11/30/2024 12:54 PM ROOM SERVICE SUPERVISOR Plan of Treatment Health Maintenance Due Date [...] ESOPHAGEAL MOTILITY (MANOMETRY) Routine 11/30/2024 2:14 PM ROOM SERVICE SUPERVISOR Hiatal hernia from Last 3 Months Results * High resolution esophageal motility (manometry) - (11/30/2024 2:14 PM ROOM SERVICE SUPERVISOR) Anatomical Region Laterality Modality Other Zachary Melara MD GI LAB PROCEDURE ORDERABLES F inal Result from Last 3 Months Insurance N[employer] ACCESS Nib[employer] ACCESS Care Teams [employer] Relationship Specialty Start Date End Date Nancy Baker NP [address] [place] [id number] PCP - General Nurse Practitioner 11/30/24
[2025-02-19] MEDS: PROCHLORPERAZINE EDISYLATE 10 MG/2 ML VIAL IV PUSH ×2 (11:52→21:25)
[2025-02-19] MEDS: HYDROmorphone HCL INJ (*CRX) 2 MG/ML VIAL 1 MG IV PUSH ×2 (11:53→21:24)
[2025-02-19] MEDS: KETOROLAC 15 MG/ML VIAL (*BKC) IV PUSH ×2 (11:53→17:47)
[2025-02-19] MEDS: SODIUM CHLORIDE 0.9% IV 1,000 ML 100 ML IV CONT ×2 (12:00→21:25)
--- NOTE | 2025-02-19 12:12 | P.HP_ITS ---
H&P: HPI History of Present Illness Date/Time: 02/19/25 12:12 Chief Complaint: Left flank pain Narrative: 49 F with history of spontaneous passage of prior kidney stones who presented to the ER this morning with significant left flank pain and wasfound to have an 8 mm L UPJ stone proximal hydronephrosis. reports pain started thursday and has been intermittent, yesterday evening worsened and this morning has been more constant. Denies dysuria, hematuria, no fevers, no chills. some nausea. no recent UTI or prior UTI sx. no prior stone surgery. never has seen a urologis Review of Systems Review of Systems: All systems reviewed & are unremarkable except as noted in HPI and below PMFSH Past Medical History Medical History ) Morbid obesity Insomnia Kidney stones IBS (irritable bowel syndrome) Headache, migraine GERD (gastroesophageal reflux disease) Anxiety Fibromyalgia Surgical History Surgical History ) History of repair of hiatal hernia 01/25/25 Robotic laparoscopic repair hiatal hernia with partial fundoplication H/O cervical spine surgery Plantar fasciitis of right foot H/O spinal fusion C4/C5 2015 L5/S1 2015 H/O tubal ligation 2010 Previous delivery, delivered 1999,2007.2009 H/O removal of cyst right breast 2010 History of surgery on left wrist Reconstructive bone placement with k-wires in 1993 [place] teeth extracted 1990 H/O adenoidectomy 1983 History of tonsillectomy 1983 H/O abdominal hysterectomy Family History Family History ) Father Hypertension Mother Thyroid disorder Sibling Depression Anxiety Grandparent Breast cancer Diabetes mellitus Brain cancer Leukemia Social History Social History ) Social History: 10/19/24 very confident with medical forms Smoking packs per day: 1 Smoking cigarettes per day: 20.0 Years smoked: 20 Smoking pack-years: 20.00 Smoking status: Former smoker Alcohol intake: never Substance use: former Substance use type: marijuana Other substance usage details: Medical, gummies Do You Feel Safe in your Home?: Yes Lack of Transportation: No Lack of Food: Never True Current Housing: I Have Housing Concerned About Future Housing: No Difficulty Paying Gas/Electric Bills: No Difficulty Paying for Meds: No Currently Unemployed: No Education: Trade/Vocational Certificate Difficulty w/ Childcare or Family Care: No Living arrangements: with family Occupation/Education: other Gender identity (if verbalized by the patient): Female Spiritual care concerns: No Agree to blood products: Yes Meds Home Medications and Allergies Home Medications ?Medication ?Instructions ?Recorded ?Confirmed ?Type erenumab-aooe 140 mg/mL 140 mg subcut MONTHLY #1 mL 07/19/24 02/19/25 Rx subcutaneous auto-injector (Aimovig Autoinjector) sumatriptan succinate 50 mg tablet 100 mg (2 x 50 mg) PO ONCE PRN 07/19/24 02/19/25 Rx migraine headache #10 tabs citalopram 20 mg tablet 30 mg (1.5 x 20 mg) PO DAILY #135 12/14/24 02/19/25 Rx tabs MEDICAL MARIJUANA 100 mg PO HS PAIN 01/17/25 02/19/25 History gabapentin 300 mg capsule 300 mg PO TID PRN pain 01/17/25 02/19/25 History benzonatate 100 mg capsule 100 mg PO TID PRN cough #30 caps 02/13/25 02/19/25 Rx prednisone 20 mg tablet 20 mg PO .COMPLEX #15 tabs 02/13/25 02/19/25 Rx Allergies Allergy/AdvReac Type Severity Reaction Status Date / Time amoxicillin Allergy Severe Hives Verified 02/19/25 07:19 Penicillins Allergy Unknown Hives Verified 02/19/25 07:19 codeine AdvReac Unknown Palpitation Verified 02/19/25 07:19 s ondansetron AdvReac Unknown violent Verified 02/19/25 07:19 vomiting Vital Signs Vital Signs - 24 hr 02/19/25 07:15 02/19/25 08:00 02/19/25 09:31 Temperature 36.4 C Pulse Rate 81 80 77 Respiratory Rate 20 16 19 Blood Pressure 160/110 H 156/84 H 171/92 H Pulse Oximetry 100 100 100 02/19/25 10:19 Temperature 36.7 C Pulse Rate 68 Respiratory Rate 18 Blood Pressure 168/84 H Pulse Oximetry 98 Exam Const: General: no acute distress and uncomfortable HENMT: Mouth: Yes moist mucous membranes Eyes: General: appearance normal, both eyes and all related structures Resp: Effort & Inspection: normal respiratory effort Cardio: Rate: regular rate GI: Inspection: non-distended GI Palp: Yes Soft to palpation Other: mild L CVAT Skin: General skin exam: normal color Extrem: General: normal to inspection Psych: Mental Status: mental status grossly normal H&P: Results Labs Labs: Short CBC 02/19/25 Range/Units 08:00 WBC 9.8 (4.5-10.0) K/mm3 Hgb 16.6 H D (12.0-15.0) g/dL Hct 49.5 H (37.0-47.0) % Plt Count 317 D (150-375) k/mm3 BMP 02/19/25 08:00 Sodium 140 Potassium 3.6 Chloride 106 Carbon Dioxide 18 L BUN 10 D Creatinine 0.96 Glucose 109 Calcium 9.7 Liver Function 02/19/25 Range/Units 08:00 Total Bilirubin 1.9 H (0.2-1.3) mg/dL AST 107 H (14-36) U/L ALT 158 H (6-35) U/L Alkaline Phosphatase 111 (38-126) U/L Albumin 4.6 (3.5-5.1) g/dL Urine 02/19/25 Range/Units 07:25 Urine Color Dark yellow (Yellow) Urine Appearance Turbid H (Clear) Urine pH 6.0 (5.0-9.0) Ur Specific [place] 1.025 (1.001-1.035) Urine Protein 2+ H (Negative) mg/dL Urine Glucose (UA) Negative (Negative) mg/dL Imaging CT scan - pelvis: Radiologist's impression: IMPRESSION: 1. Proximal left ureteral/UPJ stone measuring 8 mm with mild-moderate hydronephrosis. 2: Possible subtle low density mass of the pancreatic head. Correlation with MRI abdomen without and with contrast recommended. Assessment and Plan Assessment and plan (1) Left ureteral calculus: Code(s): N20.1 - Calculus of ureter Status: Acute Assessment and Plan: 8 mm left proximal stone, pain requiring morphine in ER. Uncomfortable on my assessement but no pain meds yet since arriving on floor. - d/w patient, given pain, stone size, irregularities on UA that I think she will need left ureteral stent placement while in house. Discussed risk, benefits, discussed will need definitive stone management after discharge. Discussed I tried to add on for this morning but anesthesia not presently available. will try to get pain under control. if unable to control pain or fevers/ develops signs of more systemic infection then will work to add stent on urgently later today, if pain can be controlled and overall stable will likely plan for cysto left stent tomorrow. - continue prn pain control with toradol/ tylenol/ dilaudid as needed (2) Urinary tract infection: Code(s): N39.0 - Urinary tract infection, site not specified Status: Acute Assessment and Plan: positive UA in ER - given rocephin, continue, f/u cultures - if fevers, chills, signs of systemic infection will need emergent stent, lack of leukocytosis and fevers encouraging. - plan left ureteral stent late today or tomorrow pending anesthesia availability and clinical course
--- NOTE | 2025-02-19 12:47 | P.HP_ITS ---
H&P: HPI History of Present Illness Date/Time: 02/19/25 12:47 Chief Complaint: Left flank pain Narrative: 49-year-old female who presented to the ER with left flank pain sudden-onset associated nausea and retching with no vomiting. No urinary symptoms reported. No blood in urine. His started all of sudden came to the ER for evaluation. On ED evaluation she was hypertensive but afebrile SpO2 adequate. On room air. Laboratory workup revealed WBC of 9.8 hemoglobin of 16.6 platelet of 317 Chem panel revealed mild metabolic acidosis normal renal function normal blood glucose LFTs were elevated with total bilirubin of 1.9 AST 107 ALT 158 lipase was normal urinalysis revealed more than 100 rbc's 21-50 WBC calcium oxalate crystals present. CT abdomen and pelvis showed 8 mm left UPJ stone with proximal [id number] hydronephrosis. History of left-sided kidney stones in the past with spontaneous passes without any interventions. She recently had hiatal hernia surgery and was discharged on 01/29/2025. She is admitted for further treatment. Review of Systems Review of Systems: - CONSTITUTIONAL: Denies weight loss, fe roberta and chills. - HEENT: Denies changes in vision and he aring - RESPIRATORY: Denies SOB and cough. - CV: Denies palpitations and CP. - GI: Reports left flank pain, nausea, vomiting and denies diarrhea. - : Denies dysuria and urinary frequen cy. - MSK: Denies myalgia and joint pain. - SKIN: Denies rash and pruritus. - NEUROLOGICAL: Denies headache and sync ope. - PSYCHIATRIC: Denies recent changes in mood. Denies anxiety and depression. [facility] Past Medical History Medical History ) Morbid obesity Insomnia Kidney stones IBS (irritable bowel syndrome) Headache, migraine GERD (gastroesophageal reflux disease) Anxiety Fibromyalgia Surgical History Surgical History ) History of repair of hiatal hernia 01/25/25 Robotic laparoscopic repair hiatal hernia with partial fundoplication H/O cervical spine surgery Plantar fasciitis of right foot H/O spinal fusion C4/C5 2014 L5/S1 2016 H/O tubal ligation 2010 Previous delivery, delivered 1999,2007.2009 H/O removal of cyst right breast 2010 History of surgery on left wrist Reconstructive bone placement with k-wires in 1993 [place] teeth extracted 1990 H/O adenoidectomy 1983 History of tonsillectomy 1983 H/O abdominal hysterectomy Family History Family History ) Father Hypertension Mother Thyroid disorder Sibling Depression Anxiety Grandparent Breast cancer Diabetes mellitus Brain cancer Leukemia Social History Social History ) Social History: 10/19/24 very confident with medical forms Smoking packs per day: 1 Smoking cigarettes per day: 20.0 Years smoked: 20 Smoking pack-years: 20.00 Smoking status: Former smoker Alcohol intake: never Substance use: former Substance use type: marijuana Other substance usage details: Medical, gummies Do You Feel Safe in your Home?: Yes Lack of Transportation: No Lack of Food: Never True Current Housing: I Have Housing Concerned About Future Housing: No Difficulty Paying Gas/Electric Bills: No Difficulty Paying for Meds: No Currently Unemployed: No Education: Trade/Vocational Certificate Difficulty w/ Childcare or Family Care: No Living arrangements: with family Occupation/Education: other Gender identity (if verbalized by the patient): Female Spiritual care concerns: No Agree to blood products: Yes Meds Home Medications and Allergies Home Medications ?Medication ?Instructions ?Recorded ?Confirmed ?Type erenumab-aooe 140 mg/mL 140 mg subcut MONTHLY #1 mL 07/19/24 02/19/25 Rx subcutaneous auto-injector (Aimovig Autoinjector) sumatriptan succinate 50 mg tablet 100 mg (2 x 50 mg) PO ONCE PRN 07/19/24 02/19/25 Rx migraine headache #10 tabs citalopram 20 mg tablet 30 mg (1.5 x 20 mg) PO DAILY #135 12/14/24 02/19/25 Rx tabs MEDICAL MARIJUANA 100 mg PO HS PAIN 01/17/25 02/19/25 History gabapentin 300 mg capsule 300 mg PO TID PRN pain 01/17/25 02/19/25 History benzonatate 100 mg capsule 100 mg PO TID PRN cough #30 caps 02/13/25 02/19/25 Rx prednisone 20 mg tablet 20 mg PO .COMPLEX #15 tabs 02/13/25 02/19/25 Rx Allergies Allergy/AdvReac Type Severity Reaction Status Date / Time amoxicillin Allergy Severe Hives Verified 02/19/25 07:19 Penicillins Allergy Unknown Hives Verified 02/19/25 07:19 codeine AdvReac Unknown Palpitation Verified 02/19/25 07:19 s ondansetron AdvReac Unknown violent Verified 02/19/25 07:19 vomiting Vital Signs Vital Signs - 24 hr 02/19/25 07:15 02/19/25 08:00 02/19/25 09:31 Temperature 97.6 F Pulse Rate 81 80 77 Respiratory Rate 20 16 19 Blood Pressure 160/110 H 156/84 H 171/92 H Pulse Oximetry 100 100 100 02/19/25 10:19 Temperature 98.1 F Pulse Rate 68 Respiratory Rate 18 Blood Pressure 168/84 H Pulse Oximetry 98 Exam Narrative: GENERAL: The patient is well developed, in mild distress with pain HEENT: Nonicteric sclerae, PERRLA, EOMI. Oropharynx clear. Moist mucous membranes. Conjunctivae appear well perfused. CHEST: Chest wall is nontender. HEART: Regular rate and rhythm without murmur, rubs, or gallops LUNGS: Clear to auscultation bilaterally. no respiratory distress ABDOMEN: Soft, positive bowel sounds, non-tender, no organomegaly. Left renal angle tenderness SKIN: No rash, no excessive bruising, petechiae, or purpura. NEUROLOGIC: Cranial nerves II-XII intact, alert and oriented x 3, no gross motor deficits EXTREMITIES: no edema, cyanosis or clubbing H&P: Results Labs Labs: Short CBC 02/19/25 Range/Units 08:00 WBC 9.8 (4.5-10.0) K/mm3 Hgb 16.6 H D (12.0-15.0) g/dL Hct 49.5 H (37.0-47.0) % Plt Count 317 D (150-375) k/mm3 BMP 02/19/25 08:00 Sodium 140 Potassium 3.6 Chloride 106 Carbon Dioxide 18 L BUN 10 D Creatinine 0.96 Glucose 109 Calcium 9.7 Liver Function 02/19/25 Range/Units 08:00 Total Bilirubin 1.9 H (0.2-1.3) mg/dL AST 107 H (14-36) U/L ALT 158 H (6-35) U/L Alkaline Phosphatase 111 (38-126) U/L Albumin 4.6 (3.5-5.1) g/dL Urine 02/19/25 Range/Units 07:25 Urine Color Dark yellow (Yellow) Urine Appearance Turbid H (Clear) Urine pH 6.0 (5.0-9.0) Ur Specific [place] 1.025 (1.001-1.035) Urine Protein 2+ H (Negative) mg/dL Urine Glucose (UA) Negative (Negative) mg/dL Assessment and Plan Assessment and plan (1) Urinary tract infection: Code(s): N39.0 - Urinary tract infection, site not specified Status: Acute (2) Hydronephrosis: Code(s): N13.30 - Unspecified hydronephrosis Status: Acute (3) Obstruction of left ureteropelvic junction (UPJ) due to stone: Code(s): N20.1 - Calculus of ureter Status: Acute (4) Fibromyalgia: Code(s): M79.7 - Fibromyalgia Status: Chronic (5) Headache, migraine: Qualifiers: Migraine type: unspecified Status migrainosus presence: without status migrainosus Intractability: not intractable Qualified Code(s): G43.909 - Migraine, unspecified, not intractable, without status migrainosus Code(s): G43.909 - Migraine, unspecified, not intractable, without status migrainosus Status: Chronic (6) GERD (gastroesophageal reflux disease): Qualifiers: Esophagitis presence: esophagitis presence not specified Qualified Code(s): K21.9 - Gastro-esophageal reflux disease without esophagitis Code(s): K21.9 - Gastro-esophageal reflux disease without esophagitis Status: Chronic Plan 49-year-old female who presented to the ER with left flank pain sudden-onset associated nausea and retching with no vomiting. No urinary symptoms reported. No blood in urine. His started all of sudden came to the ER for evaluation. On ED evaluation she was hypertensive but afebrile SpO2 adequate. On room air. Laboratory workup revealed WBC of 9.8 hemoglobin of 16.6 platelet of 317 Chem panel revealed mild metabolic acidosis normal renal function normal blood glucose LFTs were elevated with total bilirubin of 1.9 AST 107 ALT 158 lipase was normal urinalysis revealed more than 100 rbc's 21-50 WBC calcium oxalate crystals present. CT abdomen and pelvis showed 8 mm left UPJ stone with proximal [id number] hydronephrosis. History of left-sided kidney stones in the past with spontaneous passes without any interventions. She recently had hiatal hernia surgery and was discharged on 01/29/2025. She is admitted for further treatment. Urology has been consulted Plan for stent placement Currently pain control with Dilaudid antiemetic with Compazine UTI: Ceftriaxone Possible subtle low-density mass of the pancreatic head with elevated LFTs will need to planned MRI abdomen with and without contrast once stable Recent hiatal hernia surgery doing well postoperatively History of cervical spine surgery Fibromyalgia GERD Anxiety Title bowel syndrome Migraines Insomnia Morbid obesity DVT prophylaxis SCDs Code status full code Hospitalist [facility] Advance Care Plan I have confirmed that the patient's Advanced Care Plan is present, code status is documented, or surrogate decision maker is listed in patient medical record.: Yes Medication Reconciliation I have utilized all available resources to obtain, update and review the patients current medications (includes all prescriptions, OTC, herbals, cannabis, and nutritional supplements).: Yes
[2025-02-20] VITALS (9 sets, daily range): BP systolic 123–152; BP diastolic 69–84; PULSE 56–72; RESP 12–18; TEMP 36.4–36.7; O2SAT 97–100
[2025-02-20] MEDS: HYDROmorphone HCL INJ (*CRX) 1 MG/ML SYR IV PUSH (06:02)
[2025-02-20] MEDS: SODIUM CHLORIDE 0.9% IV 1,000 ML 100 ML IV CONT (07:53)
[2025-02-20] MEDS: KETOROLAC 15 MG/ML VIAL (*BKC) IV PUSH (07:55)
[2025-02-20] MEDS: cefTRIAXone 2 GM/NS 100 ML 2 GM/100 ML BAG IVPB (07:59)
--- NOTE | 2025-02-20 08:22 | WPDUROPN2 ---
Progress Note: A&P Assessment and Plan (1) Left ureteral calculus: Code(s): N20.1 - Calculus of ureter Status: Acute (2) Hydronephrosis: Code(s): N13.30 - Unspecified hydronephrosis Status: Acute (3) Abnormal urinalysis: Code(s): R82.90 - Unspecified abnormal findings in urine Status: Acute Plan Plan for cystoscopy, left retrograde pyelogram, left ureteral stent today. She understands we will not be taking care of the stone today. If all goes well today can likely be discharged home. Primary team to follow up on urine culture. We will call patient to set up definitive stone management. We discussed both ureteroscopy and lithotripsy. 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 Definitive stone management as an outpatient. Urine culture is pending Exam Narrative: No acute distress Alert orient x3 Currently resting comfortably Objective Data Vital Signs Vital Signs: Vital Signs - 24 hr 02/19/25 09:31 02/19/25 10:19 02/19/25 14:00 Temperature 98.1 F 96.8 F L Pulse Rate 77 68 57 L Respiratory Rate 19 18 18 Blood Pressure 171/92 H 168/84 H 137/72 Pulse Oximetry 100 98 100 Oxygen Delivery Fraction of Inspired Oxygen 02/19/25 16:36 02/19/25 21:00 02/19/25 21:09 Temperature 97.8 F Pulse Rate 57 L Respiratory Rate 16 Blood Pressure 128/71 Pulse Oximetry 100 100 Oxygen Delivery Room Air Room Air Fraction of Inspired Oxygen 02/20/25 05:53 Temperature 98.0 F Pulse Rate 68 Respiratory Rate 16 Blood Pressure 139/84 Pulse Oximetry 99 Oxygen Delivery Fraction of Inspired Oxygen Intake/Output Intake/Output: Intake & Output 02/17/25 02/18/25 02/19/25 02/20/25 23:59 23:59 23:59 23:59 Intake Total 1521.7 1000 Output Total 150 150 Balance 1371.7 850 Meds/Results Medications: Active Medications Generic Name Dose Route Start Last Admin Trade Name Freq PRN Reason Stop Dose Admin Hydromorphone HCl 1 mg 02/19/25 22:02 02/20/25 06:02 Hydromorphone Hcl Inj (*Crx) 1 Mg/Ml Syr IV PUSH 1 mg Q3H PRN Administration Pain Rated 7-10 Ceftriaxone Sodium 2 gm in 100 mls @ 200 mls/hr 02/20/25 08:00 02/20/25 07:59 Rocephin 2 Gm/Ns 100 Ml IVPB 200 mls/hr Q24H JIMBO Administration Sodium Chloride 1,000 mls @ 100 mls/hr 02/19/25 11:10 02/20/25 07:53 Normal Saline Iv IV CONT 100 mls/hr .Q10H JIMBO Administration Ketorolac Tromethamine 15 mg 02/19/25 11:26 02/20/25 07:55 Ketorolac 15 Mg/Ml Vial (*Bkc) IV PUSH 15 mg Q6H PRN Administration Pain Rated 4-6 Prochlorperazine Edisylate 10 mg 02/19/25 11:02 02/19/25 21:25 Prochlorperazine Edisylate 10 Mg/2 Ml Vial IV PUSH 10 mg Q6H PRN Administration Nausea And Vomiting Radiology Results: ITS Impressions Abdomen/Pelvis CT 02/19/25 08:08 IMPRESSION: 1. Proximal left ureteral/UPJ stone measuring 8 mm with mild-moderate hydronephrosis. 2: Possible subtle low density mass of the pancreatic head. Correlation with MRI abdomen without and with contrast recommended.
[2025-02-20] MEDS: LACTATED RINGERS 1,000 ML 30 ML IV CONT (08:30)
--- NOTE | 2025-02-20 10:20 | WPDANESEPPF ---
Anes - Initial Pre Proc Eval Procedure: Operation Date: 02/20/25 10:00 Proposed Procedures p Cystoscopy, Left Stent Placement(Left) - Alan Barker MD Date/Time: 02/20/25 10:20 Surgeon: Melvin Stewart MD Pre Op Diagnosis: Kidney Stone Patient Data Age: 49 Gender: F Height: 1.68 m Weight: 105.1 kg Last Vital Signs Temp 36.7 C 02/20/25 08:30 Pulse 56 L 02/20/25 08:30 Resp 16 02/20/25 08:30 BP 152/76 H 02/20/25 08:30 Pulse Ox 100 02/20/25 08:30 O2 Del Method Room Air 02/20/25 08:30 FiO2 21 02/19/25 21:00 Allergies Allergy/AdvReac Type Severity Reaction Status Date / Time amoxicillin Allergy Severe Hives Verified 02/20/25 09:23 Penicillins Allergy Unknown Hives Verified 02/20/25 09:23 codeine AdvReac Unknown Palpitation Verified 02/20/25 09:23 s ondansetron AdvReac Unknown violent Verified 02/20/25 09:23 vomiting Home Medications ?Medication ?Instructions ?Recorded ?Confirmed ?Type erenumab-aooe 140 mg/mL 140 mg subcut MONTHLY #1 mL 07/19/24 02/19/25 Rx subcutaneous auto-injector (Aimovig Autoinjector) sumatriptan succinate 50 mg tablet 100 mg (2 x 50 mg) PO ONCE PRN 07/19/24 02/19/25 Rx migraine headache #10 tabs citalopram 20 mg tablet 30 mg (1.5 x 20 mg) PO DAILY #135 12/14/24 02/19/25 Rx tabs MEDICAL MARIJUANA 100 mg PO HS PAIN 01/17/25 02/19/25 History gabapentin 300 mg capsule 300 mg PO TID PRN pain 01/17/25 02/19/25 History benzonatate 100 mg capsule 100 mg PO TID PRN cough #30 caps 02/13/25 02/19/25 Rx prednisone 20 mg tablet 20 mg PO .COMPLEX #15 tabs 02/13/25 02/19/25 Rx Patient hx anesthesia problems: none Family hx anesthesia problems: none Results Review: All pre-operative results and documents have been reviewed as part of the pre-operative evaluation. PMFSH Past Medical History Medical History (Updated 02/20/25 @ 10:20 by Volodymyr Tinoco MD) Insomnia Kidney stones IBS (irritable bowel syndrome) Headache, migraine GERD (gastroesophageal reflux disease) Anxiety Fibromyalgia Surgical History Surgical History History of repair of hiatal hernia 01/25/25 Robotic laparoscopic repair hiatal hernia with partial fundoplication H/O cervical spine surgery Plantar fasciitis of right foot H/O spinal fusion C4/C5 2015 L5/S1 2015 H/O tubal ligation 2010 Previous delivery, delivered 1999,2007.2009 H/O removal of cyst right breast 2010 History of surgery on left wrist Reconstructive bone placement with k-wires in 1993 [place] teeth extracted 1990 H/O adenoidectomy 1983 History of tonsillectomy 1983 H/O abdominal hysterectomy Family History Family History Father Hypertension Mother Thyroid disorder Sibling Depression Anxiety Grandparent Breast cancer Diabetes mellitus Brain cancer Leukemia Social History Social History Social History: 10/19/24 very confident with medical forms Smoking packs per day: 1 Smoking cigarettes per day: 20.0 Years smoked: 20 Smoking pack-years: 20.00 Smoking status: Former smoker Alcohol intake: never Substance use: former Substance use type: marijuana Other substance usage details: Medical, gummies Do You Feel Safe in your Home?: Yes Lack of Transportation: No Lack of Food: Never True Current Housing: I Have Housing Concerned About Future Housing: No Difficulty Paying Gas/Electric Bills: No Difficulty Paying for Meds: No Currently Unemployed: No Education: Trade/Vocational Certificate Difficulty w/ Childcare or Family Care: No Living arrangements: with family Occupation/Education: other Gender identity (if verbalized by the patient): Female Spiritual care concerns: No Agree to blood products: Yes Anes - Eval Final PreProcedure Day of Procedure 02/20/25 10:20 Patient weight: obese Heart: regular rate and rhythm Lungs: clear to auscultation Airway: Mallampati scale class II Neurological: alert and oriented Last oral intake: >/= 8 hours ASA classification: III Emergent: no Anesthetic plan: proceed Anesthesia type and monitoring: general LMA and standard monitoring Results Review: All pre-operative results and documents have been reviewed as part of the pre-operative evaluation. Informed Consent: The patient's anesthetic plan and its attendant risks and benefits were discussed with the patient/family/POA. Questions were solicited and answers provided to the satisfaction of the patient/family/POA.
--- NOTE | 2025-02-20 10:27 | WPDHPUPDATE1 ---
History and Physical Update Update Date/Time: 02/20/25 10:27 History and Physical has been reviewed, including an updated exam of the patient. There are NO changes in the patient's condition. Risks, benefits, and alternatives have been discussed and questions answered. Patient agrees to proceed with procedure.
[2025-02-20] MEDS: LIDOCAINE 2% GEL UROJET 10 ML PKG MUCOUS MEM (10:42)
--- NOTE | 2025-02-20 11:01 | W.PM.PROC2 ---
Procedure Note - Detailed Date of Procedure 02/20/25 Pre-op Diagnosis Calculus of the ureter Post-op Diagnosis Same Procedure Performed Cystoscopy, left retrograde pyelogram, left ureteral stent placement Surgeon Alan Barker MD Anesthesia General Indications A woman with a large left proximal ureteral stone. We will place a stent today with plan for definitive stone management in the future Findings Stone visible on engraver tire mold radiograph. Uncomplicated stent placement Description of Procedure She was correctly identified. Informed consent obtained. From the operating room. She was given general anesthesia. She was placed in dorsal thigh position. She was prepped and draped sterile fashion. Time-out performed. Cystoscopy revealed normal-appearing bladder. No redness or abnormalities. No tumors or stones. I did a engraver tire mold radiograph under fluoroscopy. The stone could be seen in the proximal ureter. I did a gentle retrograde pyelogram on the left. The stone was then seen as a filling defect with hydronephrosis proximal to the stone. There was no extravasation or other ureteral abnormalities. I placed a guidewire into the kidney. Urine was seen to come from the ureter once I placed the guidewire. I then sent urine for culture. I next placed a 4.8 variable length stent in standard fashion. Proximal coil in the upper pole kidney. Distal coil in the bladder. The bladder was drained. She was awakened transferred to PACU in stable condition. Estimated Blood Loss 0 Urine Output 150 Packing No Pathology None sent Complications No immediate complications Condition Stable Disposition PACU
[2025-02-20] MEDS: fentaNYL CITRATE INJ (*CRX) 100 MCG/2 ML VIAL 25 MCG IV PUSH (11:36)
[2025-02-20] MEDS: oxyBUTYnin CHLORIDE 5 MG TABLET PO ×2 (12:48→17:10)
--- NOTE | 2025-02-20 12:59 | PM.IMPN ---
Progress Note: A&P Assessment and Plan (1) Urinary tract infection: Code(s): N39.0 - Urinary tract infection, site not specified Status: Acute (2) Hydronephrosis: Code(s): N13.30 - Unspecified hydronephrosis Status: Acute (3) Obstruction of left ureteropelvic junction (UPJ) due to stone: Code(s): N20.1 - Calculus of ureter Status: Acute (4) Fibromyalgia: Code(s): M79.7 - Fibromyalgia Status: Chronic (5) Headache, migraine: Qualifiers: Migraine type: unspecified Status migrainosus presence: without status migrainosus Intractability: not intractable Qualified Code(s): G43.909 - Migraine, unspecified, not intractable, without status migrainosus Code(s): G43.909 - Migraine, unspecified, not intractable, without status migrainosus Status: Chronic (6) GERD (gastroesophageal reflux disease): Qualifiers: Esophagitis presence: esophagitis presence not specified Qualified Code(s): K21.9 - Gastro-esophageal reflux disease without esophagitis Code(s): K21.9 - Gastro-esophageal reflux disease without esophagitis Status: Chronic Plan 49-year-old female who presented to the ER with left flank pain sudden-onset associated nausea and retching with no vomiting. No urinary symptoms reported. No blood in urine. His started all of sudden came to the ER for evaluation. On ED evaluation she was hypertensive but afebrile SpO2 adequate. On room air. Laboratory workup revealed WBC of 9.8 hemoglobin of 16.6 platelet of 317 Chem panel revealed mild metabolic acidosis normal renal function normal blood glucose LFTs were elevated with total bilirubin of 1.9 AST 107 ALT 158 lipase was normal urinalysis revealed more than 100 rbc's 21-50 WBC calcium oxalate crystals present. CT abdomen and pelvis showed 8 mm left UPJ stone with proximal [id number] hydronephrosis. History of left-sided kidney stones in the past with spontaneous passes without any interventions. She recently had hiatal hernia surgery and was discharged on 01/29/2025. She is admitted for further treatment. Urology has been consulted Status post stent placement left ureter 02/20/2025 Currently pain control with Dilaudid antiemetic with Compazine UTI: Ceftriaxone follow urine culture Possible subtle low-density mass of the pancreatic head with elevated LFTs. Will do MRI abdomen with and without contrast. Recent hiatal hernia surgery doing well postoperatively History of cervical spine surgery Fibromyalgia GERD Anxiety Title bowel syndrome Migraines Insomnia Morbid obesity DVT prophylaxis SCDs Code status full code Subjective Date/time seen: 02/20/25 12:59 Interval history: Underwent left ureteral stent placement today. Pain is much better. No new complaints Review of Systems Review of Systems: All systems reviewed & are unremarkable except as noted in HPI and below Exam Narrative: GENERAL: The patient is well developed, in no acute distress HEENT: Nonicteric sclerae, PERRLA, EOMI. Oropharynx clear. Moist mucous membranes. Conjunctivae appear well perfused. CHEST: Chest wall is nontender. HEART: Regular rate and rhythm without murmur, rubs, or gallops LUNGS: Clear to auscultation bilaterally. no respiratory distress ABDOMEN: Soft, positive bowel sounds, non-tender, no organomegaly. Nontender left renal angle SKIN: No rash, no excessive bruising, petechiae, or purpura. NEUROLOGIC: Cranial nerves II-XII intact, alert and oriented x 3, no gross motor deficits EXTREMITIES: no edema, cyanosis or clubbing Objective Data Vital Signs Vital Signs: Vital Signs - 24 hr 02/19/25 14:00 02/19/25 16:36 02/19/25 21:00 Temperature 96.8 F L Pulse Rate 57 L Respiratory Rate 18 Blood Pressure 137/72 Pulse Oximetry 100 100 Oxygen Delivery Room Air Room Air Oxygen Flow Rate Fraction of Inspired Oxygen 02/19/25 21:09 02/20/25 05:53 02/20/25 08:30 Temperature 97.8 F 98.0 F 98.1 F Pulse Rate 57 L 68 56 L Respiratory Rate 16 16 16 Blood Pressure 128/71 139/84 152/76 H Pulse Oximetry 100 99 100 Oxygen Delivery Room Air Oxygen Flow Rate Fraction of Inspired Oxygen 02/20/25 11:05 02/20/25 11:20 02/20/25 11:25 Temperature 97.5 F L Pulse Rate 70 69 Respiratory Rate 12 13 Blood Pressure 123/71 126/73 Pulse Oximetry 100 100 100 Oxygen Delivery Simple Face Mask Simple Face Mask Room Air Oxygen Flow Rate 6 6 Fraction of Inspired Oxygen 02/20/25 11:35 02/20/25 11:50 02/20/25 12:05 Temperature Pulse Rate 72 64 65 Respiratory Rate 18 16 16 Blood Pressure 135/77 127/75 128/69 Pulse Oximetry 100 100 97 Oxygen Delivery Room Air Room Air Room Air Oxygen Flow Rate Fraction of Inspired Oxygen 02/20/25 12:15 Temperature Pulse Rate 67 Respiratory Rate 14 Blood Pressure 126/72 Pulse Oximetry 100 Oxygen Delivery Room Air Oxygen Flow Rate Fraction of Inspired Oxygen Intake/Output Intake/Output: Intake & Output 02/17/25 02/18/25 02/19/25 02/20/25 23:59 23:59 23:59 23:59 Intake Total 1521.7 1550 Output Total 150 300 Balance 1371.7 1250 Meds/Results Medications: Active Medications Generic Name Dose Route Start Last Admin Trade Name Freq PRN Reason Stop Dose Admin Benzonatate 100 mg 02/20/25 12:28 Benzonatate 100 Mg Capsule PO TID PRN cough Citalopram Hydrobromide 30 mg 02/21/25 09:00 Citalopram Hydrobromide 10 Mg Tablet PO DAILY JIMBO Gabapentin 300 mg 02/20/25 12:28 Gabapentin 300 Mg Capsule PO TID PRN fibromyalgia pain Hydromorphone HCl 1 mg 02/19/25 22:02 02/20/25 06:02 Hydromorphone Hcl Inj (*Crx) 1 Mg/Ml Syr IV PUSH 1 mg Q3H PRN Administration Pain Rated 7-10 Ceftriaxone Sodium 2 gm in 100 mls @ 200 mls/hr 02/20/25 08:00 02/20/25 08:29 Rocephin 2 Gm/Ns 100 Ml IVPB Infused Q24H JIMBO Infusion Sodium Chloride 1,000 mls @ 100 mls/hr 02/19/25 11:10 02/20/25 07:53 Normal Saline Iv IV CONT 100 mls/hr .Q10H JIMBO Administration Ketorolac Tromethamine 15 mg 02/19/25 11:26 02/20/25 07:55 Ketorolac 15 Mg/Ml Vial (*Bkc) IV PUSH 15 mg Q6H PRN Administration Pain Rated 4-6 Oxybutynin Chloride 5 mg 02/20/25 13:00 02/20/25 12:48 Oxybutynin Chloride 5 Mg Tablet PO 5 mg TID JIMBO Administration Prednisone 20 mg 02/20/25 12:28 Prednisone 20 Mg Tablet PO 02/22/25 09:01 DAILY JIMBO Prednisone 10 mg 02/23/25 09:00 Prednisone 10 Mg Tablet PO 02/25/25 09:01 DAILY JIMBO Prochlorperazine Edisylate 10 mg 02/19/25 11:02 02/19/25 21:25 Prochlorperazine Edisylate 10 Mg/2 Ml Vial IV PUSH 10 mg Q6H PRN Administration Nausea And Vomiting Sumatriptan Succinate 100 mg 02/20/25 12:28 Sumatriptan Succinate 25 Mg Tablet PO ONCE PRN migraine headache Radiology Results: ITS Impressions Abdomen/Pelvis CT 02/19/25 08:08 IMPRESSION: 1. Proximal left ureteral/UPJ stone measuring 8 mm with mild-moderate hydronephrosis. 2: Possible subtle low density mass of the pancreatic head. Correlation with MRI abdomen without and with contrast recommended.
[2025-02-20] MEDS: predniSONE 20 MG TABLET PO (13:07)
[2025-02-20 13:38] LABS: Basophils Percent Auto 0.4 % (0.2-1.2); Eosinophils Absolute Auto 0.1 K/mm3 (0-0.3); Eosinophils Percent Auto 1.3 % (0-4.4); Hemoglobin 14.7 g/dL (12.0-15.0); Immature Granulocyte Absolute 0.03 K/mm3 (0.00-0.031); Immature Granulocyte Percent A 0.4 % (0-0.5); Lymphocytes Absolute Auto 0.96 K/mm3 (0.9-3.2); Mean Corpuscular Hemoglobin 28.8 pg (26-34); Mean Platelet Volume 11.8 fl (7.4-10.4); Monocytes Absolute Auto 0.4 K/mm3 (0.1-0.6); Monocytes Percent Auto 4.4 % (2.6-8.5); Neutrophils Absolute Auto 6.5 K/mm3 (1.3-6.7); Neutrophils Percent Auto 81.5 % (45.5-73.1); Platelet Count Result 218 k/mm3 (150-375); Red Blood Count 5.11 M/mm3 (4.2-5.4); Red Cell Distribution Width 13.3 % (11.5-14.5)
[2025-02-20 13:52] LABS: Alanine Aminotransferase 149 U/L (6-35); Alkaline Phosphatase 103 U/L (38-126); Anion Gap 12 mmol/L (4-12); Aspartate Amino Transferase 62 U/L (14-36); Bilirubin,Total 1.4 mg/dL (0.2-1.3); Blood Urea Nitrogen 13 mg/dL (7-17); Calcium 8.8 mg/dL (8.4-10.2); Carbon Dioxide 23 mmol/L (22-30); Chloride 106 mmol/L (98-107); Estimated CRCL calculation 80 ml/min; Estimated Glomerular Filt Rate > 60; Glucose 112 mg/dL (65-110); Potassium 3.6 mmol/L (3.4-5.0); Sodium 141 mmol/L (137-145)
--- NOTE | 2025-02-20 15:55 | PM.DS ---
DS: Admitting Diagnosis Discharge Date 02/20/2025 Admitting Diagnosis Left flank pain DS: Discharge Diagnosis Discharge Diagnosis (1) Urinary tract infection: Code(s): N39.0 - Urinary tract infection, site not specified Status: Acute (2) Hydronephrosis: Code(s): N13.30 - Unspecified hydronephrosis Status: Acute (3) Obstruction of left ureteropelvic junction (UPJ) due to stone: Code(s): N20.1 - Calculus of ureter Status: Acute (4) Fibromyalgia: Code(s): M79.7 - Fibromyalgia Status: Chronic (5) Headache, migraine: Qualifiers: Migraine type: unspecified Status migrainosus presence: without status migrainosus Intractability: not intractable Qualified Code(s): G43.909 - Migraine, unspecified, not intractable, without status migrainosus Code(s): G43.909 - Migraine, unspecified, not intractable, without status migrainosus Status: Chronic (6) GERD (gastroesophageal reflux disease): Qualifiers: Esophagitis presence: esophagitis presence not specified Qualified Code(s): K21.9 - Gastro-esophageal reflux disease without esophagitis Code(s): K21.9 - Gastro-esophageal reflux disease without esophagitis Status: Chronic DS: Summary Hospital Course Hospital Course: 49-year-old female who presented to the ER with left flank pain sudden-onset associated nausea and retching with no vomiting. No urinary symptoms reported. No blood in urine. His started all of sudden came to the ER for evaluation. On ED evaluation she was hypertensive but afebrile SpO2 adequate. On room air. Laboratory workup revealed WBC of 9.8 hemoglobin of 16.6 platelet of 317 Chem panel revealed mild metabolic acidosis normal renal function normal blood glucose LFTs were elevated with total bilirubin of 1.9 AST 107 ALT 158 lipase was normal urinalysis revealed more than 100 rbc's 21-50 WBC calcium oxalate crystals present. CT abdomen and pelvis showed 8 mm left UPJ stone with proximal ybin-ks-jikjiial hydronephrosis. History of left-sided kidney stones in the past with spontaneous passes without any interventions. She recently had hiatal hernia surgery and was discharged on 01/29/2025. She is admitted for further treatment. Urology has been consulted Status post stent placement left ureter 02/20/2025. Follow-up with Urology for definitive stone management as an outpatient basis. Currently pain control with Dilaudid antiemetic with Compazine UTI: Ceftriaxone follow urine culture Possible subtle low-density mass of the pancreatic head with elevated LFTs. mrcp be performed which came back normal pancreas Recent hiatal hernia surgery doing well postoperatively History of cervical spine surgery Fibromyalgia GERD Anxiety Title bowel syndrome Migraines Insomnia Morbid obesity DVT prophylaxis SCDs Code status full code Time Spent with Patient Time attestation: Total time spent providing and/or coordinating discharge services: 35 minutes Exam Narrative: GENERAL: The patient is well developed, in no acute distress HEENT: Nonicteric sclerae, PERRLA, EOMI. Oropharynx clear. Moist mucous membranes. Conjunctivae appear well perfused. CHEST: Chest wall is nontender. HEART: Regular rate and rhythm without murmur, rubs, or gallops LUNGS: Clear to auscultation bilaterally. no respiratory distress ABDOMEN: Soft, positive bowel sounds, non-tender, no organomegaly. Nontender left renal angle SKIN: No rash, no excessive bruising, petechiae, or purpura. NEUROLOGIC: Cranial nerves II-XII intact, alert and oriented x 3, no gross motor deficits EXTREMITIES: no edema, cyanosis or clubbing DS: Data Data Completed and Pending Labs on day of discharge: Labs from last 24 hours 02/20/25 13:31 WBC 8.0 RBC 5.11 Hgb 14.7 Hct 46.0 MCV 90.0 MCH 28.8 MCHC 32.0 RDW 13.3 Plt Count 218 MPV 11.8 H Immature Gran % (Auto) 0.4 Neut % (Auto) 81.5 H Lymph % (Auto) 12.0 L [place] % (Auto) 4.4 Eos % (Auto) 1.3 Baso % (Auto) 0.4 Lymph # (Auto) 0.96 [place] # (Auto) 0.4 Eos # (Auto) 0.1 Baso # (Auto) 0.0 Abs Immat Gran (auto) 0.03 Absolute Neuts (auto) 6.5 Absolute Nucleated RBC 0.000 Nucleated RBC % 0.0 Sodium 141 Potassium 3.6 Chloride 106 Carbon Dioxide 23 Anion Gap 12 BUN 13 Creatinine 0.91 Estim Creat Clear Calc 80 Estimated GFR > 60 Glucose 112 H Calcium 8.8 Total Bilirubin 1.4 H AST 62 H ALT 149 H Alkaline Phosphatase 103 Total Protein 7.0 Albumin 4.0 Procedures/Treatments: Procedure Note - Detailed Date of Procedure 02/20/25 Pre-op Diagnosis Calculus of the ureter Post-op Diagnosis Same Procedure Performed Cystoscopy, left retrograde pyelogram, left ureteral stent placement Surgeon Alan Barker MD Anesthesia General Indications A woman with a large left proximal ureteral stone. We will place a stent today with plan for definitive stone management in the future Findings Stone visible on sheet metal assembler radiograph. Uncomplicated stent placement Description of Procedure She was correctly identified. Informed consent obtained. From the operating room. She was given general anesthesia. She was placed in dorsal thigh position. She was prepped and draped sterile fashion. Time-out performed. Cystoscopy revealed normal-appearing bladder. No redness or abnormalities. No tumors or stones. I did a sheet metal assembler radiograph under fluoroscopy. The stone could be seen in the proximal ureter. I did a gentle retrograde pyelogram on the left. The stone was then seen as a filling defect with hydronephrosis proximal to the stone. There was no extravasation or other ureteral abnormalities. I placed a guidewire into the kidney. Urine was seen to come from the ureter once I placed the guidewire. I then sent urine for culture. I next placed a 4.8 variable length stent in standard fashion. Proximal coil in the upper pole kidney. Distal coil in the bladder. The bladder was drained. She was awakened transferred to PACU in stable condition. Estimated Blood Loss 0 Urine Output 150 Packing No Pathology None sent Complications No immediate complications Condition Stable Disposition PACU Imaging Radiologist's impression: ITS Impressions Abdomen/Pelvis CT 02/19/25 08:08 IMPRESSION: 1. Proximal left ureteral/UPJ stone measuring 8 mm with mild-moderate hydronephrosis. 2: Possible subtle low density mass of the pancreatic head. Correlation with MRI abdomen without and with contrast recommended. MRCP 02/20/25 14:56 IMPRESSION: 1. Normal pancreas. 2. Resolution of prior left hydronephrosis with some residual left perinephric and perirenal stranding likely related to a previously seen obstructing left ureteral stone which is presumably been extracted with a left intraureteral stent in expected position. 3. Small left and very small right pleural effusions. Discharge Plan Discharge Attending physician on discharge: Grant Rowan Consulting providers: Berhane Ramirez Discharging Clinician: Grant Rowan Anticipated Discharge Date/Time: 02/20/25 15:57 Patient Disposition: Home Activity: as tolerated Diet: as tolerated and regular Patient Instructions: Antibiotic Form Patient Language: Surinamese Stand Alone Forms: General Discharge Information Follow-up/Referrals: Berhane Ramirez MD [Physician] - 2 Weeks Nancy Baker APN-C [Primary Care Provider] - 1 Week Discharge Medications: New oxybutynin chloride 5 mg Tablet 5 mg PO TID Qty: 30 0RF cefdinir 300 mg capsule 300 mg PO Q12H Qty: 10 0RF Continued Aimovig Autoinjector 140 mg/mL auto-injector 140 mg subcut MONTHLY Qty: 1 12RF Patient Comments: Was supposed to start today patient states she will wait for now sumatriptan succinate 50 mg tablet 100 mg PO ONCE PRN (Reason: migraine headache) Qty: 10 6RF Rx Instructions: take at onset of a migraine prednisone 20 mg tablet 20 mg PO .COMPLEX Qty: 15 0RF Patient Comments: Patient states she is starting day one of 1 tablet daily for 3 days Rx Instructions: 2 tablets daily x 3 days, 1.5 tablets daily x 3 days, 1 tablet daily x 3 days, 1/2 tablet daily x 3 days benzonatate 100 mg capsule 100 mg PO TID PRN (Reason: cough) Qty: 30 0RF gabapentin 300 mg capsule 300 mg PO TID PRN (Reason: pain) MEDICAL MARIJUANA 100 mg PO HS citalopram 20 mg tablet 30 mg PO DAILY Qty: 135 1RF Date of admission: 02/19/25 08:47 Primary Care Provider: Nancy Baker Admitting Provider: Melvin Stewart Attending physician on admission: Melvin Stewart Condition: Stable
--- NOTE | 2025-02-21 14:12 | WPDANESPN ---
Anes - Prog Note Post-Op Date/Time: 02/21/25 14:12 Cardiovascular status: normal Respiratory status: normal Airway patency: baseline Mental status: baseline Post-Op hydration status: normal Vital Signs: Last Vital Signs Temp 36.4 C L 02/20/25 11:05 Pulse 67 02/20/25 12:15 Resp 14 02/20/25 12:15 BP 126/72 02/20/25 12:15 Pulse Ox 100 02/20/25 12:15 O2 Del Method Room Air 02/20/25 12:15 O2 Flow Rate 6 02/20/25 11:20 FiO2 21 02/19/25 21:00 Pain Score (VAS): 0 Laboratory Tests 02/20/25 13:31 02/20/25 13:31 02/20/25 13:31 WBC 8.0 RBC 5.11 Hgb 14.7 Hct 46.0 MCV 90.0 MCH 28.8 MCHC 32.0 RDW 13.3 Plt Count 218 MPV 11.8 H Immature Gran % (Auto) 0.4 Neut % (Auto) 81.5 H Lymph % (Auto) 12.0 L [place] % (Auto) 4.4 Eos % (Auto) 1.3 Baso % (Auto) 0.4 Lymph # (Auto) 0.96 [place] # (Auto) 0.4 Eos # (Auto) 0.1 Baso # (Auto) 0.0 Abs Immat Gran (auto) 0.03 Absolute Neuts (auto) 6.5 Absolute Nucleated RBC 0.000 Nucleated RBC % 0.0 Patient Feedback: Patient satisfied with anesthetic care.
== END 2025-02-20 17:30 | disposition home or self-care (01) ==
LOC: ANHED 07:22 → ANH3MEDSUR 15:04
PROVIDERS: Urology; Admitting Provider Family Medicine; Emergency Provider Emergency Medicine; PCP Nurse Practitioner Family; Visit Provider Internal Medicine
PROC: (CPT 52352; principal; 2025-02-20 10:00)
DX: N13.6 Pyonephrosis (principal); M79.7 Fibromyalgia; G43.909 Migraine, unspecified, not intractable, without status migrainosus; K21.9 Gastro-esophageal reflux disease without esophagitis; K58.9 Irritable bowel syndrome, unspecified; E66.9 Obesity, unspecified; Z68.37 Body mass index [BMI] 37.0-37.9, adult; F41.9 Anxiety disorder, unspecified; G47.00 Insomnia, unspecified; Z87.891 Personal history of nicotine dependence; Z98.890 Other specified postprocedural states; Z90.710 Acquired absence of both cervix and uterus; Z98.1 Arthrodesis status
CPT/HCPCS: 52332; 36415; 36556; 74176; 74183; 76376; 80053; 81001; 83690; 85025; 87086; 96361; 96365; 96372; 96375; 96376; 99285; A9270; A9577; C1758; C1769; C2617; G0378; J0696; J0780; J1100; J1171; J1885; J2003; J2250; J2270; J2704; J3010; J3250; J7030; J7120; J7512; Q9966

== ENCOUNTER 2025-02-23 08:05 | Observation (INO) | payer BC, SELFPAY ==
--- NOTE | ~2025-02-23 | XR_ITS ---
Exam: Abdomen 1V HISTORY: Left kidney stone position COMPARISON: Reference is made to CT examination of the abdomen and pelvis dated 02/23/2025 (approximat emelia 24 hours earlier) TECHNIQUE: Supine images of the abdomen FINDINGS: Bowel gas pattern is non-obstructive. There is no free air or deep sulci. At the time of previous CT examination, the stone fragments were visualized within the left renal pel vis. Projecting over the left renal pelvis on today's study, the proximal pigtail portion of the double-J stent is visualized, without definitive detail to suggest the presence of previously identified stone fragments. No abnormal calcifications detected along the course of the double-J stent Stable phleboliths within the left hemipelvis. Lung bases are unremarkable. Bones and soft tissues are unremarkable. IMPRESSION: Nonspecific, nonobstructive bowel gas pattern. Projecting over the left renal pelvis on today's study, the proximal pigtail portion of the double-J stent is visualized, without definitive detail to suggest the presence of previously identified stone fragments. Reviewed, dictated and finalized at location [facility]. IMPRESSION: Nonspecific, nonobstructive bowel gas pattern. Projecting over the left renal pelvis on today's study, the proximal pigtail po rtion of the double-J stent is visualized, without definitive detail to suggest the presence of previously identified stone fragments.
--- NOTE | ~2025-02-23 | CT_ITS ---
Non-contrast CT scan of the Abdomen and Pelvis Clinical indication: Kidney stone Technique: 2.5 mm axial scans were obtained through the abdomen and pelvis without intravenous or or al contrast. Dose reduction technique was used on this scan by utilizing automated exposure control a nd iterative reconstruction technique. The dose-length product (DLP) was 686.92 mGy-cm. COMPARISON: 02/19/2025 Findings: Images through the lung bases reveal small left pleural effusion. There is a 7 mm stone in the left renal pelvis, with left ureteral stent in place. There is minimal f ullness of left ureter. No right renal or right ureteral stone. No right hydronephrosis. There is mil d hazy/infiltrative change in the peripancreatic region extending into the lower retroperitoneum. The liver, spleen, pancreas, gallbladder, and adrenals appear normal. There is no aortic aneurysm. There is no evidence of bowel obstruction. Images through the pelvis were performed. There is no evidence of ascites or lymphadenopathy. Urinary bladder otherwise unremarkable. No pelvic mass seen. No ascites. Impression: Status post left ureteral stent placement. 7 mm present in the left renal pelvis. Minimal fullness of the left ureter. Hazy infiltrative change in the peripancreatic region and retroperitoneum. This could be related to l eft renal stone and/or stent placement. Correlate for any possibility of pancreatitis. Reviewed, dictated and finalized at [facility]. Impression: Status post left ureteral stent placement. 7 mm present in the left renal pelvi s. Minimal fullness of the left ureter. Hazy infiltrative change in the peripancreatic region and retroperitoneum. This could be related to left renal stone and/or stent placement. Correlate for any possibility of pancreatitis.
[2025-02-23 08:08] VITALS: BP 171/95; PULSE 69; RESP 22; TEMP 36.4; O2SAT 100
--- OUTSIDE RECORDS SUMMARY | 2025-02-23 08:13 | XMS_ITS | Clinical Summary ---
Author Organization [facility] Address [address] [place] [address] Care Team Providers Care Claims Adjudicator Name Role Phone Nancy Baker NP Primary Care Provider [phone] Allergies Active Allergy Reactions Criticality Noted Date [...] Department Care Team Description 11/30/2024 12:15 PM HOT PIPE GAUGER - 11/30/2024 11:59 PM HOT PIPE GAUGER Hospital Encounter [facility] [address] [place] [address] [address] [place] [address] Hiatal hernia Discharge Disposition: Discharge to home or self care from Last 3 Months Surgical History Surgery [...] on file Legal Sex Female 1:47 PM HOT PIPE GAUGER Gender Identity Not on file Sexual Orientation Not on file Obstetrics History Last Filed Vital Signs Vital Sign Reading Time Taken Comments Blood Pressure 151/77 11/30/2024 12:54 PM HOT PIPE GAUGER Pulse 76 11/30/2024 12:54 PM HOT PIPE GAUGER Temperature - - Respiratory Rate 20 11/30/2024 12:54 PM HOT PIPE GAUGER Oxygen Saturation - - Inhaled Oxygen Concentration - - Weight 113.4 kg (250 lb) 11/30/2024 12:54 PM HOT PIPE GAUGER Height 167.6 cm (5' 6 ) 11/30/2024 12:54 PM HOT PIPE GAUGER Body Mass Index 40.35 11/30/2024 12:54 PM HOT PIPE GAUGER Plan of Treatment Health Maintenance Due Date Last Done Comments Breast Cancer Screening-Mammogram 1974 Colon Cancer Screening-Colonoscopy 1974 Depression Screening 1974 Hepatitis C Screening 1974 DTaP/Tdap/Td Vaccine (1 - Tdap) 1985 Hepatitis B Screening 1992 Regular Well Visit/Exam 18-64 1992 Covid-19 Vaccine (4 - 2023-2 5 season) 2024 12/28/2021, 02/01/2021, 01/11/2021 Influenza Vaccine (#1) 2024 Zoster Vaccine (1 of 2) 2024 Pneumococcal vaccine <65 Aged Out No longer eligible based on patient's age to complete this topic Procedures Procedure Name Priority Date/Time Associated Diagnosis Comments HIGH RESOLUTION ESOPHAGEAL MOTILITY (MANOMETRY) Routine 11/30/2024 2:14 PM HOT PIPE GAUGER Hiatal hernia from Last 3 Months Results * High resolution esophageal motility (manometry) - (11/30/2024 2:14 PM HOT PIPE GAUGER) Anatomical Region Laterality Modality Other Zachary Melara MD GI LAB PROCEDURE ORDERABLES F inal Result from Last 3 Months Insurance ANTHEM ACCESS ANTHEM ACCESS Care Teams Claims Adjudicator Relationship Specialty Start Date End Date Nancy Baker NP [address] [place] [address] PCP - General Nurse Practitioner 11/30/24
--- OUTSIDE RECORDS SUMMARY | 2025-02-23 08:13 | XMS_ITS | Clinical Summary ---
Author Organization [facility] Address [facility] [place] [address] Care Team Providers Care Dispensing Lead Name Role Phone Nancy Baker COUNTER TACKER Primary Care Provider [phone] Allergies Active Allergy Reactions Criticality Noted Date [...] the left lateral decubitus position, the Olympus [id number] endoscope was used to easily intubate the [...] the left lateral decubitus position, the Olympus [id number] colonoscope was introduced into the rectum and [...] Relevant to Health Maintenance Insurance Care Teams Dispensing Lead Relationship Specialty Start Date End Date Nancy Baker FNP [address] [place] [id number] PCP - General Nurse Practitioner Family 10/19/24
--- OUTSIDE RECORDS SUMMARY | 2025-02-23 08:13 | XMS_ITS | Referral Summary ---
Author Organization [facility] Address [address] [place] [address] Care Team Providers Care Watch And Clock Maker And Repairer Name Role Phone Nancy Baker NP Primary Care Provider [phone] Encounters Date Type Department Care Team Description 11/30/2024 12:15 PM CORE OVEN TENDER - 11/30/2024 11:59 PM CORE OVEN TENDER Hospital Encounter [facility] [address] [address] Hiatal hernia Discharge Disposition: Discharge to home or self care from Last 3 Months Allergies Active Allergy [...] on file Legal Sex Female 1:47 PM CORE OVEN TENDER Gender Identity Not on file Sexual Orientation Not on file Last Filed Vital Signs Vital Sign Reading Time Taken Comments Blood Pressure 151/77 11/30/2024 12:54 PM CORE OVEN TENDER Pulse 76 11/30/2024 12:54 PM CORE OVEN TENDER Temperature - - Respiratory Rate 20 11/30/2024 12:54 PM CORE OVEN TENDER Oxygen Saturation - - Inhaled Oxygen Concentration - - Weight 113.4 kg (250 lb) 11/30/2024 12:54 PM CORE OVEN TENDER Height 167.6 cm (5' 6 ) 11/30/2024 12:54 PM CORE OVEN TENDER Body Mass Index 40.35 11/30/2024 12:54 PM CORE OVEN TENDER Plan of Treatment Not on file Procedures Procedure Name Priority Date/Time Associated Diagnosis Comments HIGH RESOLUTION ESOPHAGEAL MOTILITY (MANOMETRY) Routine 11/30/2024 2:14 PM CORE OVEN TENDER Hiatal hernia from Last 3 Months Results * High resolution esophageal motility (manometry) - (11/30/2024 2:14 PM CORE OVEN TENDER) Anatomical Region Laterality Modality Other Zachary Melara MD GI LAB PROCEDURE ORDERABLES F inal Result from Last 3 Months Insurance [employer] [facility] ACCESS Care Teams Watch And Clock Maker And Repairer Relationship Specialty Start Date End Date Nancy Baker NP [address] [place] [id number] PCP - General Nurse Practitioner 11/30/24
--- OUTSIDE RECORDS SUMMARY | 2025-02-23 08:13 | XMS_ITS | Clinical Summary ---
Author Organization [facility] [employer] Address [address] [facility] [place] [address] Care Team Providers Care Dual Hose Cementer Name Role Phone Jose Angel Zuleta MD Primary Care Provider [phone] Source Comments [facility] [employer],non-owned Affiliates and Associated Physician Practices is amultiple site organization consisting of ambulatory clinics and hospital sitesin [place], [place], [place] and [place]. This disclosure is being madepursuant to the Care Everywhere program and may not contain all information available regarding this patient. Last updated 18.[facility] [employer] Allergies Active Allergy Reactions Criticality Noted Date [...] on file Legal Sex Female 6:33 AM POLITICAL RESEARCH SCIENTIST Gender Identity Not on file Sexual Orientation Not on file Last Filed Vital Signs Vital Sign Reading Time Taken Comments Blood Pressure 126/84 12/30/2018 10:51 AM POLITICAL RESEARCH SCIENTIST Pulse 74 12/30/2018 10:51 AM POLITICAL RESEARCH SCIENTIST Temperature 37 C (98.6 F) 12/30/2018 10:51 AM POLITICAL RESEARCH SCIENTIST Respiratory Rate 16 12/30/2018 10:51 AM POLITICAL RESEARCH SCIENTIST Oxygen Saturation 96% 12/30/2018 10:51 AM POLITICAL RESEARCH SCIENTIST Inhaled Oxygen Concentration - - Weight 112.9 kg (249 lb) 12/30/2018 10:51 AM POLITICAL RESEARCH SCIENTIST Height 167.6 cm (5' 6 ) 12/30/2018 10:51 AM POLITICAL RESEARCH SCIENTIST Body Mass Index 40.19 12/30/2018 10:51 AM POLITICAL RESEARCH SCIENTIST Plan of Treatment Health Maintenance Due Date Last Done Comments COLOGUARD (AGES 45-75) - COL ON CA SCREENING 1974 COLON MONITORING 1974 COLONOSCOPY - COLON CA SCREENING 1974 CT COLONOGRAPHY - COLON CA SCREENING 1974 Colorectal Cancer Screening 1974 FIT - COLON CA SCREENING 1974 FLEX SIG - COLON CA SCREENING 1974 LIPID TESTING 1974 MAMMOGRAM 1974 HIV SCREENING 1989 HEPATITIS C SCREENING [...] complete this topic Insurance NAVEED Care Teams Dual Hose Cementer Relationship Specialty Start Date End Date Jose Angel Zuleta MD [address] [place] [address] PCP - General Family Medicine 12/30/18
--- NOTE | 2025-02-23 08:26 | ED_ITS ---
HPI - Female Genitourinary General Chief complaint: Urogenital-Female Stated complaint: kidney stone, stent placed Time Seen by Provider: 02/23/25 08:16 Source: patient and family Mode of arrival: ambulatory Limitations: no limitations History of Present Illness HPI Narrative: 49 years old white female status post left renal stent placement 4 days ago, workup 6 hour ago with severe pain left flank radiating to left lower abdomen associated with bloody urine and dry heaves. She denies any fever or chills or vomiting. Related Data Home Medications ?Medication ?Instructions ?Recorded ?Confirmed ?Last Taken ?Type MEDICAL MARIJUANA 100 mg PO HS PAIN 01/17/25 02/19/25 02/18/25 History gabapentin 300 mg capsule 300 mg PO TID PRN pain 01/17/25 02/19/25 02/18/25 History prednisone 20 mg tablet 10 mg PO DAILY 02/23/25 02/23/25 02/22/25 History Allergies Allergy/AdvReac Type Severity Reaction Status Date / Time amoxicillin Allergy Severe Hives Verified 02/23/25 08:05 Penicillins Allergy Unknown Hives Verified 02/23/25 08:05 codeine AdvReac Unknown Palpitation Verified 02/23/25 08:05 s ondansetron AdvReac Unknown violent Verified 02/23/25 08:05 vomiting Review of Systems 2 Review of Systems: All systems reviewed & are unremarkable except as noted in HPI and below PMFSH Past Medical History Medical History Insomnia Kidney stones IBS (irritable bowel syndrome) Headache, migraine GERD (gastroesophageal reflux disease) Anxiety Fibromyalgia Surgical History Surgical History History of repair of hiatal hernia 01/25/25 Robotic laparoscopic repair hiatal hernia with partial fundoplication H/O cervical spine surgery Plantar fasciitis of right foot H/O spinal fusion C4/C5 2015 L5/S1 2015 H/O tubal ligation 2010 Previous delivery, delivered 1999,2007.2009 H/O removal of cyst right breast 2010 History of surgery on left wrist Reconstructive bone placement with k-wires in 1993 [place] teeth extracted 1990 H/O adenoidectomy 1983 History of tonsillectomy 1983 H/O abdominal hysterectomy Family History Family History Father Hypertension Mother Thyroid disorder Sibling Depression Anxiety Grandparent Breast cancer Diabetes mellitus Brain cancer Leukemia Social History Social History Social History: 10/19/24 very confident with medical forms Smoking packs per day: 1 Smoking cigarettes per day: 20.0 Years smoked: 20 Smoking pack-years: 20.00 Smoking status: Former smoker Alcohol intake: never Substance use: former Substance use type: marijuana Other substance usage details: Medical, gummies Do You Feel Safe in your Home?: Yes Lack of Transportation: No Lack of Food: Never True Current Housing: I Have Housing Concerned About Future Housing: No Difficulty Paying Gas/Electric Bills: No Difficulty Paying for Meds: No Currently Unemployed: No Education: Trade/Vocational Certificate Difficulty w/ Childcare or Family Care: No Living arrangements: with family Occupation/Education: other Gender identity (if verbalized by the patient): Female Spiritual care concerns: No Agree to blood products: Yes Exam 2 Narrative: General appearance: Well-developed, well-nourished, in pain Skin: Normal color Head: Normocephalic, nontraumatic Eyes: Clear conjunctiva ENT: Oropharynx normal, ears normal, nose normal Neck: Supple, nontender Chest and respiratory: Airway patent, no respiratory distress, no accessory muscle use Heart: Regular rate/rhythm Abdomen: Soft, mild tenderness left flank, moderate tenderness left lower quadrant, no guarding rebound, no organomegaly, quiet bowel sounds Vascular: Normal peripheral pulses, normal capillary refill. Musculoskeletal: Normal range of motion, nontender back Neurologic: Alert and oriented ?3, MILK AND CREAM GRADER is normal as tested, no gross motor deficit Course Consultations Consultation #1: DR FRANK ADMIT TO HOSPITALIST Date: 02/23/25 Vital Signs Vital signs: Vital Signs Temperature 36.4 C 02/23/25 08:08 Pulse Rate 69 02/23/25 08:08 Respiratory Rate 22 H 02/23/25 08:08 Blood Pressure 171/95 H 02/23/25 08:08 Pulse Oximetry 100 02/23/25 08:08 Oxygen Delivery Room Air 02/23/25 08:08 Temperature 36.4 C 02/23/25 08:08 Pulse Rate 69 02/23/25 08:08 Respiratory Rate 22 H 02/23/25 08:08 Blood Pressure 171/95 H 02/23/25 08:08 Pulse Oximetry 100 02/23/25 08:08 Oxygen Delivery Room Air 02/23/25 08:08 MDM - Female Genitourinary MDM Narrative Medical decision making narrative: Patient is status post stent placement left kidney 4 days ago came with pain and dry heaves and hematuria Vital signs showing blood pressure 171/95, respiration 22 otherwise within normal limit Physical examination showing crying patient, with tenderness left flank and left abdomen Differential diagnosis include kidney stone, renal stent complication, urinary tract infection Blood workup today includes CBC and CMP, showed insignificant abnormality Urinalysis showed evidence of infection Levaquin IV started CT abdomen and pelvis without contrast showed 7 mm stone present at the left renal pelvis, status post left ureteral stent placement ADMIT TO HOSPITALIST DIAGNOSIS URINARY TRACT INFECTION, STATUS POST URETERAL STENT PLACEMENT, KIDNEY STONE Differential Diagnosis Differential diagnosis: Likely other ( ABOVE) Medical Records Attestation: I reviewed the patient's medical records. Lab Data Attestation: I reviewed the patient's lab results. 02/23/25 08:41 02/23/25 08:41 Labs: Lab Results 02/23/25 Range/Units 08:41 WBC 9.9 (4.5-10.0) K/mm3 RBC 5.23 (4.2-5.4) M/mm3 Hgb 15.3 H (12.0-15.0) g/dL Hct 46.6 (37.0-47.0) % MCV 89.1 (80-100) fl MCH 29.3 (26-34) pg MCHC 32.8 (32-36) g/dl RDW 13.3 (11.5-14.5) % Plt Count 196 (150-375) k/mm3 MPV 12.6 H (7.4-10.4) fl Immature Gran % (Auto) 0.6 H (0-0.5) % Neut % (Auto) 55.7 (45.5-73.1) % Lymph % (Auto) 33.4 (18.3-44.2) % [place] % (Auto) 8.1 (2.6-8.5) % Eos % (Auto) 1.9 (0-4.4) % Baso % (Auto) 0.3 (0.2-1.2) % Lymph # (Auto) 3.32 H (0.9-3.2) K/mm3 [place] # (Auto) 0.8 H (0.1-0.6) K/mm3 Eos # (Auto) 0.2 (0-0.3) K/mm3 Baso # (Auto) 0.0 (0.0-0.1) K/mm3 Abs Immat Gran (auto) 0.06 H (0.00-0.031) K/mm3 Absolute Neuts (auto) 5.5 (1.3-6.7) K/mm3 Absolute Nucleated RBC 0.000 (0.0-0.012) K/mm3 Nucleated RBC % 0.0 (0.0-0.2) % Sodium 139 (137-145) mmol/L Potassium 3.5 (3.4-5.0) mmol/L Chloride 107 (98-107) mmol/L Carbon Dioxide 19 L (22-30) mmol/L Anion Gap 13 H (4-12) mmol/L BUN 11 (7-17) mg/dL Creatinine 0.84 (0.7-1.0) mg/dL Estim Creat Clear Calc 87 ml/min Estimated GFR > 60 (59 - ) Glucose 95 (65-110) mg/dL Calcium 8.8 (8.4-10.2) mg/dL Total Bilirubin 1.6 H (0.2-1.3) mg/dL AST 27 (14-36) U/L ALT 89 H (6-35) U/L Alkaline Phosphatase 101 (38-126) U/L Total Protein 7.0 (6.3-8.2) g/dL Albumin 4.1 (3.5-5.1) g/dL Urine Color Red H (Yellow) Urine Appearance Turbid H (Clear) Urine pH 6.0 (5.0-9.0) Ur Specific [place] 1.021 (1.001-1.035) Urine Protein 4+ H (Negative) mg/dL Urine Glucose (UA) Negative (Negative) mg/dL Urine Ketones Negative (Negative) mg/dL Ur Blood (Man) 3+ H (Negative) Urine Nitrate Positive H (Negative) Urine Bilirubin 2+ H (Negative) Urine Urobilinogen 0.2 (<2.0) mg/dL Add Ur Microanalysis Reviewed Leukocyte Esterase Rfl 2+ H (Negative) ROEL/UL Urine RBC >100 H (0-2) /hpf Urine WBC 21-50 H (0-3) /hpf Ur Squamous Epith Cells Occasional (Few) /hpf Urine Bacteria Rare /hpf Urine Casts 0-2 Imaging Data Radiologist's impression: Impressions Abdomen/Pelvis CT 02/23/25 08:44 Impression: Status post left ureteral stent placement. 7 mm present in the left renal pelvis. Minimal fullness of the left ureter. Hazy infiltrative change in the peripancreatic region and retroperitoneum. This could be related to left renal stone and/or stent placement. Correlate for any possibility of pancreatitis. Critical Care Time Critical Care Time Critical Care Time: No Discharge Plan Discharge Clinical Impression: Urinary tract infection, Kidney stone Patient Disposition: Still a Patient Condition: Stable Patient Language: Pashto Prescriptions: No Action Aimovig Autoinjector 140 mg/mL auto-injector 140 mg subcut MONTHLY Qty: 1 12RF Patient Comments: Was supposed to start today patient states she will wait for now sumatriptan succinate 50 mg tablet 100 mg PO ONCE PRN (Reason: migraine headache) Qty: 10 6RF Rx Instructions: take at onset of a migraine prednisone 20 mg tablet 20 mg PO .COMPLEX Qty: 15 0RF Patient Comments: Patient states she is starting day one of 1 tablet daily for 3 days Rx Instructions: 2 tablets daily x 3 days, 1.5 tablets daily x 3 days, 1 tablet daily x 3 days, 1/2 tablet daily x 3 days benzonatate 100 mg capsule 100 mg PO TID PRN (Reason: cough) Qty: 30 0RF gabapentin 300 mg capsule 300 mg PO TID PRN (Reason: pain) MEDICAL MARIJUANA 100 mg PO HS oxybutynin chloride 5 mg Tablet 5 mg PO TID Qty: 30 0RF cefdinir 300 mg capsule 300 mg PO Q12H Qty: 10 0RF citalopram 20 mg tablet 30 mg PO DAILY Qty: 135 1RF Follow-up/Referrals: Nancy Baker, WEALTH MANAGEMENT CONSULTANT-C [Primary Care Provider] -
[2025-02-23] MEDS: HYDROmorphone HCL INJ (*CRX) 2 MG/ML VIAL 0.5 MG IV PUSH ×4 (08:41→14:39)
--- NOTE | 2025-02-23 08:47 | PC.NURSE ---
Patient's US IV infiltrated. Darshan from vascular access called to place another IV
[2025-02-23 08:48] LABS: Basophils Percent Auto 0.3 % (0.2-1.2); Eosinophils Absolute Auto 0.2 K/mm3 (0-0.3); Eosinophils Percent Auto 1.9 % (0-4.4); Hematocrit 46.6 % (37.0-47.0); Hemoglobin 15.3 g/dL (12.0-15.0); Immature Granulocyte Absolute 0.06 K/mm3 (0.00-0.031); Immature Granulocyte Percent A 0.6 % (0-0.5); Lymphocytes Absolute Auto 3.32 K/mm3 (0.9-3.2); Lymphocytes Percent Auto 33.4 % (18.3-44.2); Mean Corpuscular HGB Conc 32.8 g/dl (32-36); Mean Corpuscular Hemoglobin 29.3 pg (26-34); Mean Corpuscular Volume 89.1 fl (80-100); Mean Platelet Volume 12.6 fl (7.4-10.4); Monocytes Absolute Auto 0.8 K/mm3 (0.1-0.6); Monocytes Percent Auto 8.1 % (2.6-8.5); Neutrophils Absolute Auto 5.5 K/mm3 (1.3-6.7); Neutrophils Percent Auto 55.7 % (45.5-73.1); Platelet Count Result 196 k/mm3 (150-375); Red Blood Count 5.23 M/mm3 (4.2-5.4); Red Cell Distribution Width 13.3 % (11.5-14.5); White Blood Count 9.9 K/mm3 (4.5-10.0)
--- OUTSIDE RECORDS SUMMARY | 2025-02-23 08:54 | XMS_ITS | Clinical Summary ---
Author Organization [facility] Address [address] [place] [address] Care Team Providers Care Communications Tech Name Role Phone Nancy Baker NP Primary Care Provider [phone] Allergies Active Allergy Reactions Criticality Noted Date [...] Department Care Team Description 11/30/2024 12:15 PM DAIRY AND FOOD LABORATORY ASSISTANT - 11/30/2024 11:59 PM DAIRY AND FOOD LABORATORY ASSISTANT Hospital Encounter [facility] [address] [place] [address] [address] [place] [address] Hiatal hernia Discharge Disposition: Discharge to home [...] on file Legal Sex Female 1:47 PM DAIRY AND FOOD LABORATORY ASSISTANT Gender Identity Not on file Sexual Orientation Not on file Obstetrics History Last Filed Vital Signs Vital Sign Reading Time Taken Comments Blood Pressure 151/77 11/30/2024 12:54 PM DAIRY AND FOOD LABORATORY ASSISTANT Pulse 76 11/30/2024 12:54 PM DAIRY AND FOOD LABORATORY ASSISTANT Temperature - - Respiratory Rate 20 11/30/2024 12:54 PM DAIRY AND FOOD LABORATORY ASSISTANT Oxygen Saturation - - Inhaled Oxygen Concentration - - Weight 113.4 kg (250 lb) 11/30/2024 12:54 PM DAIRY AND FOOD LABORATORY ASSISTANT Height 167.6 cm (5' 6 ) 11/30/2024 12:54 PM DAIRY AND FOOD LABORATORY ASSISTANT Body Mass Index 40.35 11/30/2024 12:54 PM DAIRY AND FOOD LABORATORY ASSISTANT Plan of Treatment Health Maintenance Due Date [...] ESOPHAGEAL MOTILITY (MANOMETRY) Routine 11/30/2024 2:14 PM DAIRY AND FOOD LABORATORY ASSISTANT Hiatal hernia from Last 3 Months Results * High resolution esophageal motility (manometry) - (11/30/2024 2:14 PM DAIRY AND FOOD LABORATORY ASSISTANT) Anatomical Region Laterality Modality Other Zachary Melara MD GI LAB PROCEDURE ORDERABLES F inal Result from Last 3 Months Insurance ANTHEM ACCESS ANTHEM ACCESS Care Teams Communications Tech Relationship Specialty Start Date End Date Nancy Baker NP [address] [place] [address] PCP - General Nurse Practitioner 11/30/24
--- OUTSIDE RECORDS SUMMARY | 2025-02-23 08:54 | XMS_ITS | Clinical Summary ---
Author Organization [facility] Address [facility] [place] [address] Care Team Providers Care Wool Hat Forming Machine Tender Name Role Phone Nancy Baker JUNIOR BUYER Primary Care Provider Allergies Active Allergy Reactions [...] the left lateral decubitus position, the Olympus [id number] endoscope was used to easily intubate the [...] the left lateral decubitus position, the Olympus [id number] colonoscope was introduced into the rectum and [...] Relevant to Health Maintenance Insurance Care Teams Wool Hat Forming Machine Tender Relationship Specialty Start Date End Date Nancy Baker FNP [address] [place] [id number] PCP - General Nurse Practitioner Family 10/19/24
--- OUTSIDE RECORDS SUMMARY | 2025-02-23 08:54 | XMS_ITS | Referral Summary ---
Author Organization [facility] Address [address] [place] [address] Care Team Providers Care Glue Specialty Supervisor Name Role Phone Nancy Bakre NP Primary Care Provider Encounters Date Type Department Care Team Description 11/30/2024 12:15 PM PLANT DIRECTOR - 11/30/2024 11:59 PM PLANT DIRECTOR Hospital Encounter [facility] [address] [address] Hiatal hernia Discharge Disposition: Discharge to home [...] on file Legal Sex Female 1:47 PM PLANT DIRECTOR Gender Identity Not on file Sexual Orientation Not on file Last Filed Vital Signs Vital Sign Reading Time Taken Comments Blood Pressure 151/77 11/30/2024 12:54 PM PLANT DIRECTOR Pulse 76 11/30/2024 12:54 PM PLANT DIRECTOR Temperature - - Respiratory Rate 20 11/30/2024 12:54 PM PLANT DIRECTOR Oxygen Saturation - - Inhaled Oxygen Concentration - - Weight 113.4 kg (250 lb) 11/30/2024 12:54 PM PLANT DIRECTOR Height 167.6 cm (5' 6 ) 11/30/2024 12:54 PM PLANT DIRECTOR Body Mass Index 40.35 11/30/2024 12:54 PM PLANT DIRECTOR Plan of Treatment Not on file Procedures Procedure Name Priority Date/Time Associated Diagnosis Comments HIGH RESOLUTION ESOPHAGEAL MOTILITY (MANOMETRY) Routine 11/30/2024 2:14 PM PLANT DIRECTOR Hiatal hernia from Last 3 Months Results * High resolution esophageal motility (manometry) - (11/30/2024 2:14 PM PLANT DIRECTOR) Anatomical Region Laterality Modality Other Zachary Melara MD GI LAB PROCEDURE ORDERABLES F inal Result from Last 3 Months Insurance [facility] ACCESS Care Teams Glue Specialty Supervisor Relationship Specialty Start Date End Date Nancy Baker NP [address] [place] [id number] PCP - General Nurse Practitioner 11/30/24
--- OUTSIDE RECORDS SUMMARY | 2025-02-23 08:54 | XMS_ITS | Clinical Summary ---
Author Organization [facility] Address [address] [place] [address] Care Team Providers Care Varnishing Machine Operator Name Role Phone Jose Angel Zuleta MD Primary Care Provider [phone] Source Comments [facility],non-owned Affiliates and Associated Physician Practices is amultiple site organization consisting of ambulatory clinics and hospital sitesin [place], [place], [place] and [place]. This disclosure is being madepursuant to the Care Everywhere program and may not contain all information available regarding this patient. Last updated 18.[facility] Allergies Active Allergy Reactions Criticality Noted Date [...] on file Legal Sex Female 6:33 AM FILE KEEPER Gender Identity Not on file Sexual Orientation Not on file Last Filed Vital Signs Vital Sign Reading Time Taken Comments Blood Pressure 126/84 12/30/2018 10:51 AM FILE KEEPER Pulse 74 12/30/2018 10:51 AM FILE KEEPER Temperature 37 C (98.6 F) 12/30/2018 10:51 AM FILE KEEPER Respiratory Rate 16 12/30/2018 10:51 AM FILE KEEPER Oxygen Saturation 96% 12/30/2018 10:51 AM FILE KEEPER Inhaled Oxygen Concentration - - Weight 112.9 kg (249 lb) 12/30/2018 10:51 AM FILE KEEPER Height 167.6 cm (5' 6 ) 12/30/2018 10:51 AM FILE KEEPER Body Mass Index 40.19 12/30/2018 10:51 AM FILE KEEPER Plan of Treatment Health Maintenance Due Date [...] complete this topic Insurance NAVEED Care Teams Varnishing Machine Operator Relationship Specialty Start Date End Date Jose Angel Zuleta MD [address] [place] [address] PCP - General Family Medicine 12/30/18
[2025-02-23 08:58] LABS: Alanine Aminotransferase 89 U/L (6-35); Albumin Level 4.1 g/dL (3.5-5.1); Alkaline Phosphatase 101 U/L (38-126); Anion Gap 13 mmol/L (4-12); Aspartate Amino Transferase 27 U/L (14-36); Bilirubin,Total 1.6 mg/dL (0.2-1.3); Blood Urea Nitrogen 11 mg/dL (7-17); Calcium 8.8 mg/dL (8.4-10.2); Carbon Dioxide 19 mmol/L (22-30); Chloride 107 mmol/L (98-107); Estimated CRCL calculation 87 ml/min; Estimated Glomerular Filt Rate > 60; Glucose 95 mg/dL (65-110); Potassium 3.5 mmol/L (3.4-5.0); Sodium 139 mmol/L (137-145)
[2025-02-23 09:05] LABS: Bacteria Urine Rare /hpf; Need Manual Microscopic Reviewed; Non Pathogenic Casts 0-2; RBC Urine >100 /hpf (0-2); Squamous Epithelial Cell Urine Occasional /hpf (Few); WBC Urine 21-50 /hpf (0-3)
[2025-02-23 09:07] LABS: Add Urine Microscopic? YES; Appearance Urine Turbid (Clear); Bilirubin Urine 2+ (Negative); Blood Urine 3+ (Negative); Color Urine Red (Yellow); Glucose Urine UA Negative (Negative); Ketones Urine Negative (Negative); Leukocyte Esterase Ur 2+ LEU/UL (Negative); Nitrate Urine Positive (Negative); Protein Urine 4+ mg/dL (Negative); Specific Grav Ur 1.021 (1.001-1.035); Urobilinogen Urine 0.2 mg/dL (<2.0)
[2025-02-23] MEDS: PROCHLORPERAZINE EDISYLATE 10 MG/2 ML VIAL IV PUSH (09:11)
[2025-02-23] MEDS: levoFLOXacin 750 MG/D5W 150 ML 750 MG/150 ML BAG 100 MG IVPB (09:35)
[2025-02-23 10:00] VITALS: BP 148/71; PULSE 65; RESP 18; O2SAT 95
[2025-02-23 11:00] VITALS: BP 132/75; PULSE 71; RESP 18; O2SAT 97
[2025-02-23 12:00] VITALS: BP 140/81; PULSE 66; RESP 20; O2SAT 96
[2025-02-23 12:41] VITALS: BMI 39.4
[2025-02-23] MEDS: SODIUM CHLORIDE 0.9% IV 1,000 ML 125 ML IV CONT (12:46)
[2025-02-23 12:48] VITALS: BMI 39.4
--- NOTE | 2025-02-23 12:50 | ADMGEN ---
This patient, Debra Youssef, was admitted to Medical Room 341-01. Patient/family oriented to hospital policies and general routines including ID bracelet, bed and alarms, visiting hours, pain management, procedures, bathroom and other care routines, personal items, smoking policy, room service/diet, and visiting hours. Information on how to activate the Rapid Response Team has been discussed. Patient/Family are encouraged to report perceived risks to care and to ask questions if they do not understand what they are told or what they should do.
--- NOTE | 2025-02-23 13:45 | P.HP_ITS ---
H&P: HPI History of Present Illness Date/Time: 02/23/25 14:00 Chief Complaint: Left side pain and blood in urine. Narrative: This is a 49-year-old female with history of kidney stones, hiatal hernia status post laparoscopic repair, gastroesophageal reflux disease, irritable bowel syndrome, fibromyalgia, and anxiety who presented to the emergency department with complaints of left-sided pain and blood in urine. She was seen in the emergency department on Thursday for severe left-sided flank pain, nausea, vomiting, and dysuria and was found to have an 8 mm stone in the left ureteropelvic junction. She was taken to OR the following day for cystoscopy with left retrograde pyelogram and left ureteral stent placement and was discharged home with prescriptions for cefdinir and oxybutynin; urine culture grew mixed genital shanique not indicative of acute urinary tract infection. Unfortunately her pain continues and is much worse today. She has notice blood in the urine and reports dysuria. Appetite has not been great and she has had nausea and dry heaves. She does not think that she has passed the stone. No fever, chest pain, shortness of breath, vomiting, or diarrhea. In the ED: Blood pressure on arrival was 171/95. The remainder of her vital signs were stable. Labs were significant for WBC count 9.9, hemoglobin 15.3, carbon dioxide 19, anion gap 13, total bilirubin 1.6, ALT 89. Urinalysis was grossly bloody with 4+ protein, 3+ blood, 2+ bilirubin, positive nitrates, 2+ leukocyte esterase, greater than 100 RBC, 21 to 50 WBC. Occasional squamous cells and rare bacteria were seen on microscopy. CT scan showed the left ureteral stent in place with a 7 mm stone in the left renal pelvis and hazy infiltrative change in the peripancreatic region and retroperitoneum which could be related to the renal stone and or for stent placement, correlate for possible pancreatitis. She was given a dose of levofloxacin, hydromorphone, prochlorperazine, and she is being admitted in this setting for further treatment and evaluation. Review of Systems Review of Systems: 12 systems were reviewed and are negativ e except for as per HPI. [facility] Past Medical History Medical History (Updated 02/23/25 @ 22:04 by Gina Story PA-C) Colon polyps Gastroesophageal reflux disease Irritable bowel syndrome Insomnia Kidney stones Headache, migraine Anxiety Fibromyalgia Surgical History Surgical History (Updated 02/23/25 @ 14:35 by Gina Story PA-C) History of colonoscopy with polypectomy History of cystoscopy History of placement of ureteral stent History of removal of cyst (2010) right breast History of lumbar fusion (2015) L5-S1 History of fusion of cervical spine (2014) C4-C5 History of section 1999, 2007, 2009 History of tubal ligation (2009) History of hysterectomy History of repair of hiatal hernia (01/25/25) robotic laparoscopic repair hiatal hernia with partial fundoplication per Dr. Melara History of surgery on left wrist (1993) reconstructive bone placement with k-wires [place] teeth extracted (1990) History of tonsillectomy (1983) Family History Family History Father Hypertension Mother Thyroid disorder Sibling Depression Anxiety Grandparent Breast cancer Diabetes mellitus Brain cancer Leukemia Social History Social History (Updated 02/23/25 @ 14:38 by Gina Story PA-C) Social History: Surrogate medical decision maker: Minor Youssef, spouse. Code status: Full code. Smoking packs per day: 1 Smoking cigarettes per day: 20.0 Years smoked: 20 Smoking pack-years: 20.00 Smoking status: Former smoker Alcohol intake: never Substance use: former Substance use type: marijuana Other substance usage details: Medical, gummies Do You Feel Safe in your Home?: Yes Lack of Transportation: No Lack of Food: Never True Current Housing: I Have Housing Concerned About Future Housing: No Difficulty Paying Gas/Electric Bills: No Difficulty Paying for Meds: No Currently Unemployed: No Education: Trade/Vocational Certificate Difficulty w/ Childcare or Family Care: No Living arrangements: with family Occupation/Education: other Spiritual care concerns: No Agree to blood products: Yes Meds Home Medications and Allergies Home Medications ?Medication ?Instructions ?Recorded ?Confirmed ?Type erenumab-aooe 140 mg/mL 140 mg subcut MONTHLY #1 mL 07/19/24 02/23/25 Rx subcutaneous auto-injector (Aimovig Autoinjector) sumatriptan succinate 50 mg tablet 100 mg (2 x 50 mg) PO ONCE PRN 07/19/24 02/23/25 Rx migraine headache #10 tabs citalopram 20 mg tablet 30 mg (1.5 x 20 mg) PO DAILY #135 12/14/24 02/23/25 Rx tabs MEDICAL MARIJUANA 100 mg PO HS PAIN 01/17/25 02/23/25 History gabapentin 300 mg capsule 300 mg PO TID PRN pain 01/17/25 02/23/25 History benzonatate 100 mg capsule 100 mg PO TID PRN cough #30 caps 02/13/25 02/23/25 Rx cefdinir 300 mg capsule 300 mg PO Q12H #10 caps 02/20/25 02/23/25 Rx oxybutynin chloride 5 mg tablet 5 mg PO TID #30 tabs 02/20/25 02/23/25 Rx prednisone 20 mg tablet 10 mg PO DAILY 02/23/25 02/23/25 History Allergies Allergy/AdvReac Type Severity Reaction Status Date / Time amoxicillin Allergy Severe Hives Verified 02/23/25 08:05 Penicillins Allergy Unknown Hives Verified 02/23/25 08:05 codeine AdvReac Unknown Palpitation Verified 02/23/25 08:05 s ondansetron AdvReac Unknown violent Verified 02/23/25 08:05 vomiting Vital Signs Vital Signs - 24 hr 02/23/25 08:08 02/23/25 10:00 02/23/25 11:00 Temperature 97.6 F Pulse Rate 69 65 71 Respiratory Rate 22 H 18 18 Blood Pressure 171/95 H 148/71 H 132/75 Pulse Oximetry 100 95 97 Oxygen Delivery Room Air 02/23/25 12:00 Temperature Pulse Rate 66 Respiratory Rate 20 Blood Pressure 140/81 Pulse Oximetry 96 Oxygen Delivery Exam Narrative: General: Mildly ill-appearing female sitting up in bed in quite a bit of pain. Weight: 110.9 kg. BMI: 39.5. HEENT: PERRL, EOMI. Sclera anicteric. Tacky mucous membranes. Neck: Supple. Respiratory: Lungs are clear to auscultation bilaterally. Cardiovascular: Regular rate and rhythm with S1-S2. Gastrointestinal: Abdomen is soft and nondistended with positive bowel sounds. She is tender to palpation over the left flank and somewhat in the left upper quadrant. No significant CVA tenderness. Skin: Warm and dry. No rash or lesions on limited exam. Extremities: No cyanosis, clubbing, or edema. Radial and pedal pulses intact. Neurological: Alert. Cranial nerves 2-12 are grossly intact. No gross focal deficits to casual conversation. Psychiatric: Pleasant and cooperative with normal mood and affect. Judgment and insight intact. H&P: Results Labs Labs: Short CBC 02/23/25 Range/Units 08:41 WBC 9.9 (4.5-10.0) K/mm3 Hgb 15.3 H (12.0-15.0) g/dL Hct 46.6 (37.0-47.0) % Plt Count 196 (150-375) k/mm3 BMP 02/23/25 08:41 Sodium 139 Potassium 3.5 Chloride 107 Carbon Dioxide 19 L BUN 11 Creatinine 0.84 Glucose 95 Calcium 8.8 Liver Function 02/23/25 Range/Units 08:41 Total Bilirubin 1.6 H (0.2-1.3) mg/dL AST 27 (14-36) U/L ALT 89 H (6-35) U/L Alkaline Phosphatase 101 (38-126) U/L Albumin 4.1 (3.5-5.1) g/dL Urine 02/23/25 Range/Units 08:41 Urine Color Red H (Yellow) Urine Appearance Turbid H (Clear) Urine pH 6.0 (5.0-9.0) Ur Specific [place] 1.021 (1.001-1.035) Urine Protein 4+ H (Negative) mg/dL Urine Glucose (UA) Negative (Negative) mg/dL Imaging Abdomen/Pelvis CT 02/23/25 08:44 Impression: Status post left ureteral stent placement. 7 mm present in the left renal pelvis. Minimal fullness of the left ureter. Hazy infiltrative change in the peripancreatic region and retroperitoneum. This could be related to left renal stone and/or stent placement. Correlate for any possibility of pancreatitis. Assessment and Plan Assessment and plan (1) Complicated urinary tract infection: Code(s): N39.0 - Urinary tract infection, site not specified Status: Acute (2) Left renal stone: Code(s): N20.0 - Calculus of kidney Status: Acute (3) Hematuria: Code(s): R31.9 - Hematuria, unspecified Status: Acute (4) Abnormal finding on CT scan: Code(s): R93.89 - Abnormal findings on diagnostic imaging of other specified body structures Status: Acute (5) Elevated LFTs: Code(s): R79.89 - Other specified abnormal findings of blood chemistry Status: Acute Plan The patient presented to the emergency department with complaints of worsening left-sided flank pain, hematuria, and dry heaves postoperative day 3 status post left ureteral stent placement as detailed in HPI. Labs, imaging, EKG, and all reports were personally reviewed. CT scan shows a 7 mm stone in the left renal pelvis and mild fullness in the left ureter. Hazy infiltrative change was also seen in the peripancreatic region in the retroperitoneum. Lipase is pending however this is likely related to the stone and/or stent irritation Urology has been consulted for their opinion. Analgesics and antiemetics are available as needed. Two urine cultures from earlier this week demonstrated superficial genital shanique and no growth however urinalysis today is now nitrate positive thus we will continue with antibiotics, pending repeat culture. Total bilirubin and ALT are slightly elevated and in fact are improved compared to labs from earlier this week. CT scan showed a normal liver and gallbladder and she is not experiencing pain in the right upper quadrant thus will discontinue to monitor. Initial blood pressures were high, likely due to pain, and they are improving. Her home medications will be reviewed and resumed as appropriate. Of note, she has 3 doses left of a prednisone taper for what sounds like bronchitis which she will be allowed to finish. Findings and treatment plan were discussed with the patient. Questions were solicited and answered to satisfaction. The patient's medical management will be taken over by the hospitalist team in a.m. Quality VTE Prophylaxis VTE prophylaxis: mechanical ordered If No VTE Prophylaxis Answer both mechanical and pharmacologic: Reason no pharmacologic proph: medical contraindication (hematuria) The patient has been admitted under observation status. Hospitalist [facility] Advance Care Plan I have confirmed that the patient's Advanced Care Plan is present, code status is documented, or surrogate decision maker is listed in patient medical record.: Yes Medication Reconciliation I have utilized all available resources to obtain, update and review the patients current medications (includes all prescriptions, OTC, herbals, cannabis, and nutritional supplements).: Yes
[2025-02-23 14:00] VITALS: BP 136/78; PULSE 78; RESP 19; TEMP 36.7; O2SAT 98
[2025-02-23 15:21] LABS: Lipase 36 U/L (23-300)
[2025-02-23] MEDS: predniSONE 5 MG TABLET PO (16:10)
[2025-02-23] MEDS: oxyBUTYnin CHLORIDE 5 MG TABLET PO (16:10)
[2025-02-23] MEDS: CITALOPRAM HYDROBROMIDE 10 MG TABLET 30 MG PO (16:10)
[2025-02-23] MEDS: GABAPENTIN 300 MG CAPSULE PO (16:12)
--- NOTE | 2025-02-23 16:12 | P.CONUR_ITS ---
Assessment and Plan Assessment and plan (1) Left renal stone: Code(s): N20.0 - Calculus of kidney Status: Acute (2) Urinary tract infection: Code(s): N39.0 - Urinary tract infection, site not specified Status: Acute Assessment and Plan: * Obstructing 8 mm left proximal ureteral stone managed with recent ureteral stent placement * Moderate stent irritation complicated by acute urinary tract infection * Unfortunately, with this acute infection our hands are tied in definitive management of this stone. * Will add tamsulosin and Pyridium to help with stent irritation. Continue oxybutynin as currently ordered. * Agree with broad-spectrum antibiotics pending culture results. * Will get a KUB tomorrow morning and make plans for definitive stone management next week (ESWL versus ureteroscopy) Urology Consult Note HPI Date Seen: 02/23/25 Requesting Physician: Taj Galloway MD Primary Care Provider: ARIADNA Henning Consult Narrative Narrative: Debra Youssef is a pleasant 49 year old female known to us with a 8 mm left renal pelvic stone status post ureteral stent placement on 02/20. She had had [id number] stent irritation that became acutely worse last night and into this morning. Additionally she developed more significant hematuria prompting presentation to the emergency department. Evaluation there with a CT shows the stent in position urinalysis highly suggestive of a urinary tract infection Review of Systems 2 Review of Systems: All systems reviewed & are unremarkable except as noted in HPI and below PMFSH Past Medical History Medical History (Updated 02/23/25 @ 14:42 by Gina Story PA-C) Colon polyps Gastroesophageal reflux disease Irritable bowel syndrome Insomnia Kidney stones Headache, migraine Anxiety Fibromyalgia Surgical History Surgical History (Updated 02/23/25 @ 14:35 by Gina Story PA-C) History of colonoscopy with polypectomy History of cystoscopy History of placement of ureteral stent History of removal of cyst (2010) right breast History of lumbar fusion (2015) L5-S1 History of fusion of cervical spine (2014) C4-C5 History of section 1999, 2007, 2009 History of tubal ligation (2009) History of hysterectomy History of repair of hiatal hernia (01/25/25) robotic laparoscopic repair hiatal hernia with partial fundoplication per Dr. Melara History of surgery on left wrist (1993) reconstructive bone placement with k-wires [place] teeth extracted (1990) History of tonsillectomy (1983) Family History Family History Father Hypertension Mother Thyroid disorder Sibling Depression Anxiety Grandparent Breast cancer Diabetes mellitus Brain cancer Leukemia Social History Social History (Updated 02/23/25 @ 14:38 by Gina Story PA-C) Social History: Surrogate medical decision maker: Minor Mikael, spouse. Code status: Full code. Smoking packs per day: 1 Smoking cigarettes per day: 20.0 Years smoked: 20 Smoking pack-years: 20.00 Smoking status: Former smoker Alcohol intake: never Substance use: former Substance use type: marijuana Other substance usage details: Medical, gummies Do You Feel Safe in your Home?: Yes Lack of Transportation: No Lack of Food: Never True Current Housing: I Have Housing Concerned About Future Housing: No Difficulty Paying Gas/Electric Bills: No Difficulty Paying for Meds: No Currently Unemployed: No Education: Trade/Vocational Certificate Difficulty w/ Childcare or Family Care: No Living arrangements: with family Occupation/Education: other Spiritual care concerns: No Agree to blood products: Yes Meds Home Medications and Allergies Home Medications ?Medication ?Instructions ?Recorded ?Confirmed ?Type erenumab-aooe 140 mg/mL 140 mg subcut MONTHLY #1 mL 07/19/24 02/23/25 Rx subcutaneous auto-injector (Aimovig Autoinjector) sumatriptan succinate 50 mg tablet 100 mg (2 x 50 mg) PO ONCE PRN 07/19/24 02/23/25 Rx migraine headache #10 tabs citalopram 20 mg tablet 30 mg (1.5 x 20 mg) PO DAILY #135 12/14/24 02/23/25 Rx tabs MEDICAL MARIJUANA 100 mg PO HS PAIN 01/17/25 02/23/25 History gabapentin 300 mg capsule 300 mg PO TID PRN pain 01/17/25 02/23/25 History benzonatate 100 mg capsule 100 mg PO TID PRN cough #30 caps 02/13/25 02/23/25 Rx cefdinir 300 mg capsule 300 mg PO Q12H #10 caps 02/20/25 02/23/25 Rx oxybutynin chloride 5 mg tablet 5 mg PO TID #30 tabs 02/20/25 02/23/25 Rx prednisone 20 mg tablet 10 mg PO DAILY 02/23/25 02/23/25 History Allergies Allergy/AdvReac Type Severity Reaction Status Date / Time amoxicillin Allergy Severe Hives Verified 02/23/25 08:05 Penicillins Allergy Unknown Hives Verified 02/23/25 08:05 codeine AdvReac Unknown Palpitation Verified 02/23/25 08:05 s ondansetron AdvReac Unknown violent Verified 02/23/25 08:05 vomiting Vital Signs Vital Signs - 24 hr 02/23/25 08:08 02/23/25 10:00 02/23/25 11:00 Temperature 97.6 F Pulse Rate 69 65 71 Respiratory Rate 22 H 18 18 Blood Pressure 171/95 H 148/71 H 132/75 Pulse Oximetry 100 95 97 Oxygen Delivery Room Air 02/23/25 12:00 02/23/25 14:00 02/23/25 14:31 Temperature 98.1 F Pulse Rate 66 78 Respiratory Rate 20 19 Blood Pressure 140/81 136/78 Pulse Oximetry 96 98 Oxygen Delivery Room Air Exam 2 Const: General: no acute distress Resp: Effort & Inspection: normal respiratory effort GI: Inspection: non-distended GI Palp: No abdominal tenderness and No Guarding due to palpation present (GI) Auscultation: normal bowel sounds Results Labs 02/23/25 08:41 02/23/25 08:41 Labs: Short CBC 02/23/25 Range/Units 08:41 WBC 9.9 (4.5-10.0) K/mm3 Hgb 15.3 H (12.0-15.0) g/dL Hct 46.6 (37.0-47.0) % Plt Count 196 (150-375) k/mm3 [facility] 02/23/25 08:41 Sodium 139 Potassium 3.5 Chloride 107 Carbon Dioxide 19 L BUN 11 Creatinine 0.84 Glucose 95 Calcium 8.8 Liver Function 02/23/25 Range/Units 08:41 Total Bilirubin 1.6 H (0.2-1.3) mg/dL AST 27 (14-36) U/L ALT 89 H (6-35) U/L Alkaline Phosphatase 101 (38-126) U/L Albumin 4.1 (3.5-5.1) g/dL Urine 02/23/25 Range/Units 08:41 Urine Color Red H (Yellow) Urine Appearance Turbid H (Clear) Urine pH 6.0 (5.0-9.0) Ur Specific [place] 1.021 (1.001-1.035) Urine Protein 4+ H (Negative) mg/dL Urine Glucose (UA) Negative (Negative) mg/dL
[2025-02-23] MEDS: TAMSULOSIN HCL 0.4 MG CAPSULE PO (16:20)
[2025-02-23] MEDS: PHENAZOPYRIDINE HCL 100 MG TABLET 200 MG PO (17:25)
[2025-02-23] MEDS: HYDROmorphone HCL INJ (*CRX) 2 MG/ML VIAL 1 MG IV PUSH ×2 (17:28→20:57)
[2025-02-23 20:57] VITALS: BP 140/85; PULSE 60; RESP 16; TEMP 36.9; O2SAT 96
[2025-02-23] MEDS: SODIUM CHLORIDE 0.9% IV 1,000 ML 100 ML IV CONT (21:05)
[2025-02-24] MEDS: oxyCODONE/ACETAMINOPHEN (*CRX) 10-325 MG TABLET 1 TAB PO ×3 (04:07→20:52)
[2025-02-24 04:09] VITALS: BP 144/73; PULSE 71; RESP 18; TEMP 36.3; O2SAT 100
[2025-02-24 06:02] LABS: Hematocrit 42.8 % (37.0-47.0); Hemoglobin 13.8 g/dL (12.0-15.0); Mean Corpuscular HGB Conc 32.2 g/dl (32-36); Mean Corpuscular Hemoglobin 29.1 pg (26-34); Mean Corpuscular Volume 90.3 fl (80-100); Mean Platelet Volume 12.4 fl (7.4-10.4); Platelet Count Result 177 k/mm3 (150-375); Red Blood Count 4.74 M/mm3 (4.2-5.4); Red Cell Distribution Width 13.5 % (11.5-14.5); White Blood Count 6.6 K/mm3 (4.5-10.0)
[2025-02-24 06:03] LABS: Alanine Aminotransferase 70 U/L (6-35); Albumin Level 3.5 g/dL (3.5-5.1); Alkaline Phosphatase 78 U/L (38-126); Anion Gap 7 mmol/L (4-12); Aspartate Amino Transferase 21 U/L (14-36); Bilirubin,Total 1.3 mg/dL (0.2-1.3); Blood Urea Nitrogen 9 mg/dL (7-17); Calcium 8.5 mg/dL (8.4-10.2); Carbon Dioxide 23 mmol/L (22-30); Chloride 109 mmol/L (98-107); Estimated CRCL calculation 93 ml/min; Estimated Glomerular Filt Rate > 60; Glucose 87 mg/dL (65-110); Lipase 18 U/L (23-300); Magnesium 2.2 mg/dL (1.6-2.3); Potassium 3.9 mmol/L (3.4-5.0); Sodium 139 mmol/L (137-145)
--- NOTE | 2025-02-24 06:50 | P.PNUR_ITS ---
Progress Note: A&P Assessment and Plan (1) Left renal stone: Code(s): N20.0 - Calculus of kidney Status: Acute (2) Urinary tract infection: Code(s): N39.0 - Urinary tract infection, site not specified Status: Acute Assessment and Plan: * Stent discomfort improved -> continue oxybutynin, tamsulosin and pyridium (or OOT AZO Urinary Tract) while stent in place * For UTI -> tailor abx. to oral and continue x10 days to get thru definitive stone mgmt. * KUB this morning -> will use that to decide ESWL vs. ureteroscopy and get one, or the other, scheduled next week. Subjective Subjective Date/Time Seen: 02/24/25 06:50 Interval history: Moderate improvement in stent irritaton/discomfort Review of Systems Review of Systems: All systems reviewed & are unremarkable except as noted in HPI and below Exam Const: General: no acute distress Resp: Effort & Inspection: normal respiratory effort GI: Inspection: non-distended GI Palp: No abdominal tenderness and No Guarding due to palpation present (GI) Auscultation: normal bowel sounds Objective Data Vital Signs Vital Signs: Vital Signs - 24 hr 02/23/25 08:08 02/23/25 10:00 02/23/25 11:00 Temperature 97.6 F Pulse Rate 69 65 71 Respiratory Rate 22 H 18 18 Blood Pressure 171/95 H 148/71 H 132/75 Pulse Oximetry 100 95 97 Oxygen Delivery Room Air 02/23/25 12:00 02/23/25 14:00 02/23/25 14:31 Temperature 98.1 F Pulse Rate 66 78 Respiratory Rate 20 19 Blood Pressure 140/81 136/78 Pulse Oximetry 96 98 Oxygen Delivery Room Air 02/23/25 20:57 02/24/25 04:09 Temperature 98.4 F 97.4 F L Pulse Rate 60 71 Respiratory Rate 16 18 Blood Pressure 140/85 144/73 H Pulse Oximetry 96 100 Oxygen Delivery Intake/Output Intake/Output: Intake & Output 02/21/25 02/22/25 02/23/25 02/24/25 23:59 23:59 23:59 23:59 Intake Total 1630.0 150 Output Total 400 Balance 1630.0 -250 Meds/Results Medications: Active Medications Generic Name Dose Route Start Last Admin Trade Name Freq PRN Reason Stop Dose Admin Acetaminophen 650 mg 02/23/25 11:39 Acetaminophen 325 Mg Tablet PO Q4H PRN Mild Pain (1-3) or Fever Hydrocodone Bitart/Acetaminophen 1 tab 02/23/25 22:00 Hydrocodone/Acetaminophen (*Crx) 5-325 Mg Tablet PO Q6H PRN Pain Rated 4-6 Citalopram Hydrobromide 30 mg 02/23/25 15:20 02/23/25 16:10 Citalopram Hydrobromide 10 Mg Tablet PO 30 mg DAILY JIMBO Administration Gabapentin 300 mg 02/23/25 14:50 02/23/25 16:12 Gabapentin 300 Mg Capsule PO 300 mg TID PRN Administration NERVE PAIN Hydromorphone HCl 0.5 mg 02/23/25 14:35 02/23/25 14:39 Hydromorphone Hcl Inj (*Crx) 2 Mg/Ml Vial IV PUSH 0.5 mg Q3H PRN Administration Breakthrough Pain Sodium Chloride 1,000 mls @ 100 mls/hr 02/23/25 11:40 02/23/25 21:05 Normal Saline Iv IV CONT 100 mls/hr .Q10H JIMBO Administration Levofloxacin/Dextrose 750 mg in 150 mls @ 100 mls/hr 02/24/25 09:00 Levaquin 750 Mg/D5w 150 Ml IVPB Q24H JIMBO Oxybutynin Chloride 5 mg 02/23/25 17:00 02/23/25 16:10 Oxybutynin Chloride 5 Mg Tablet PO 5 mg TID JIMBO Administration Oxycodone/Acetaminophen 1 tab 02/23/25 22:00 02/24/25 04:07 Oxycodone/Acetaminophen (*Crx) 10-325 Mg Tablet PO 1 tab Q4H PRN Administration Pain Rated 7-10 Phenazopyridine HCl 200 mg 02/23/25 17:00 02/23/25 17:25 Phenazopyridine Hcl 100 Mg Tablet PO 200 mg TIDWM JIMBO Administration Prednisone 5 mg 02/23/25 15:20 02/23/25 16:10 Prednisone 5 Mg Tablet PO 02/25/25 09:01 5 mg DAILY JIMBO Administration Prochlorperazine Edisylate 10 mg 02/23/25 11:39 Prochlorperazine Edisylate 10 Mg/2 Ml Vial IV PUSH Q6H PRN Nausea And Vomiting Tamsulosin HCl 0.4 mg 02/23/25 17:00 02/23/25 16:20 Tamsulosin Hcl 0.4 Mg Capsule PO 0.4 mg QPM JIMBO Administration Radiology Results: ITS Impressions Abdomen/Pelvis CT 02/23/25 08:44 Impression: Status post left ureteral stent placement. 7 mm present in the left renal pelvis. Minimal fullness of the left ureter. Hazy infiltrative change in the peripancreatic region and retroperitoneum. This could be related to left renal stone and/or stent placement. Correlate for any possibility of pancreatitis. Labs Labs: Laboratory Results - last 24 hr 02/23/25 02/24/25 02/24/25 08:41 05:29 05:30 WBC 9.9 6.6 RBC 5.23 4.74 Hgb 15.3 H 13.8 Hct 46.6 42.8 MCV 89.1 90.3 MCH 29.3 29.1 MCHC 32.8 32.2 RDW 13.3 13.5 Plt Count 196 177 MPV 12.6 H 12.4 H Immature Gran % (Auto) 0.6 H Neut % (Auto) 55.7 Lymph % (Auto) 33.4 [place] % (Auto) 8.1 Eos % (Auto) 1.9 Baso % (Auto) 0.3 Lymph # (Auto) 3.32 H [place] # (Auto) 0.8 H Eos # (Auto) 0.2 Baso # (Auto) 0.0 Abs Immat Gran (auto) 0.06 H Absolute Neuts (auto) 5.5 Absolute Nucleated RBC 0.000 Nucleated RBC % 0.0 Sodium 139 139 Potassium 3.5 3.9 Chloride 107 109 H Carbon Dioxide 19 L 23 Anion Gap 13 H 7 BUN 11 9 Creatinine 0.84 0.80 Estim Creat Clear Calc 87 93 Estimated GFR > 60 > 60 Glucose 95 87 Calcium 8.8 8.5 Magnesium 2.2 Total Bilirubin 1.6 H 1.3 AST 27 21 ALT 89 H 70 H Alkaline Phosphatase 101 78 Total Protein 7.0 6.0 L Albumin 4.1 3.5 Lipase 36 18 L Urine Color Red H Urine Appearance Turbid H Urine pH 6.0 Ur Specific [place] 1.021 Urine Protein 4+ H Urine Glucose (UA) Negative Urine Ketones Negative Ur Blood (Man) 3+ H Urine Nitrate Positive H Urine Bilirubin 2+ H Urine Urobilinogen 0.2 Add Ur Microanalysis Reviewed Leukocyte Esterase Rfl 2+ H Urine RBC >100 H Urine WBC 21-50 H Ur Squamous Epith Cells Occasional Urine Bacteria Rare Urine Casts 0-2
[2025-02-24] MEDS: levoFLOXacin 750 MG/D5W 150 ML 750 MG/150 ML BAG 100 MG IVPB (07:30)
[2025-02-24] MEDS: PHENAZOPYRIDINE HCL 100 MG TABLET 200 MG PO ×3 (07:31→16:44)
[2025-02-24] MEDS: SODIUM CHLORIDE 0.9% IV 1,000 ML 100 ML IV CONT (07:31)
[2025-02-24] MEDS: predniSONE 5 MG TABLET PO (07:31)
[2025-02-24] MEDS: oxyBUTYnin CHLORIDE 5 MG TABLET PO ×3 (07:31→16:44)
[2025-02-24] MEDS: GABAPENTIN 300 MG CAPSULE PO ×2 (07:34→11:59)
[2025-02-24] MEDS: HYDROcodone/acetaminophen (*CRX) 5-325 MG TABLET 1 TAB PO ×2 (07:34→14:01)
[2025-02-24 08:55] VITALS: O2SAT 99
[2025-02-24] MEDS: CITALOPRAM HYDROBROMIDE 10 MG TABLET 30 MG PO (11:59)
[2025-02-24 14:00] VITALS: BP 138/70; PULSE 88; RESP 18; TEMP 36.8; O2SAT 97
--- NOTE | 2025-02-24 14:39 | P.PNIM_ITS ---
Progress Note: A&P Assessment and Plan (1) Complicated urinary tract infection: Code(s): N39.0 - Urinary tract infection, site not specified Status: Acute (2) Left renal stone: Code(s): N20.0 - Calculus of kidney Status: Acute (3) Hematuria: Code(s): R31.9 - Hematuria, unspecified Status: Acute (4) Abnormal finding on CT scan: Code(s): R93.89 - Abnormal findings on diagnostic imaging of other specified body structures Status: Acute (5) Elevated LFTs: Code(s): R79.89 - Other specified abnormal findings of blood chemistry Status: Acute Plan Pt seen today d/t recent admit for hematuria, dysuria, and L flank pain via ED on 02/23/2025. S/p cystoscopy with left retrograde pyelogram and left ureteral stent placement d/t an 8mm stone seen on CT on 02/20/2025. Repeat imaging for this admission reflects left ureteral stent in place with a 7 mm stone in the left renal pelvis and hazy infiltrative change in the peripancreatic region and retroperitoneum which could be related to the renal stone and or for stent placement, correlate for possible pancreatitis . Pt denies N/V today. Lipase negative. Does not believe she has passed the stone yet. Pt recently dx with bronchitis and has x2 doses left of a prednisone taper rx by her PCP, denies SOB, CP, or pleuritic pain. Pt reports pain is better today with oxybutynin, tamsulosin, and Pyridium; taking [place]/Percocet sparingly. Pending UA culture (collected yesterday per nursing) and then KUB interpretation via urology and plan for either ESWL vs ureteroscopy next week (per pt). Subjective Date/time seen: 02/24/25 14:00 Interval history: Pt seen today d/t recent admit for hematuria, dysuria, and L flank pain s/p cystoscopy with left retrograde pyelogram and left ureteral stent placement d/t an 8mm stone seen on CT on 02/20/2025. Pt reports pain is better today with oxybutynin, tamsulosin, and Pyridium; taking [place]/Percocet sparingly. Denies CP/SOB. Review of Systems Review of Systems: All systems reviewed & are unremarkable except as noted in HPI and below Exam Narrative: General: Mildly ill-appearing female sitting up in bed. Reporting moderate pain. HEENT: PERRL, EOMI. Sclera anicteric. Tacky mucous membranes. Neck: Supple. Respiratory: Lungs are clear to auscultation bilaterally. Cardiovascular: Regular rate and rhythm with S1-S2. Gastrointestinal: Abdomen is soft and nondistended with active bowel sounds. TTP over the left flank and somewhat in the left upper quadrant. No significant CVA tenderness. Skin: Warm and dry. No rash or lesions on limited exam. Extremities: No cyanosis, clubbing, or edema. Radial and pedal pulses intact. Neurological: Alert. Cranial nerves 2-12 are grossly intact. No gross focal deficits to casual conversation. Psychiatric: Pleasant and cooperative with normal mood and affect. Judgment and insight intact. Objective Data Vital Signs Vital Signs: Vital Signs - 24 hr 02/23/25 20:57 02/24/25 04:09 02/24/25 08:00 Temperature 98.4 F 97.4 F L Pulse Rate 60 71 Respiratory Rate 16 18 Blood Pressure 140/85 144/73 H Pulse Oximetry 96 100 Oxygen Delivery Room Air 02/24/25 08:55 Temperature Pulse Rate Respiratory Rate Blood Pressure Pulse Oximetry 99 Oxygen Delivery Room Air Intake/Output Intake/Output: Intake & Output 02/21/25 02/22/25 02/23/25 02/24/25 23:59 23:59 23:59 23:59 Intake Total 1630.0 1597 Output Total 2175 Balance 1630.0 -578 Meds/Results Medications: Active Medications Generic Name Dose Route Start Last Admin Trade Name Freq PRN Reason Stop Dose Admin Acetaminophen 650 mg 02/23/25 11:39 Acetaminophen 325 Mg Tablet PO Q4H PRN Mild Pain (1-3) or Fever Hydrocodone Bitart/Acetaminophen 1 tab 02/23/25 22:00 02/24/25 14:01 Hydrocodone/Acetaminophen (*Crx) 5-325 Mg Tablet PO 1 tab Q6H PRN Administration Pain Rated 4-6 Citalopram Hydrobromide 30 mg 02/23/25 15:20 02/24/25 11:59 Citalopram Hydrobromide 10 Mg Tablet PO 30 mg DAILY JIMBO Administration Gabapentin 300 mg 02/23/25 14:50 02/24/25 11:59 Gabapentin 300 Mg Capsule PO 300 mg TID PRN Administration NERVE PAIN Hydromorphone HCl 0.5 mg 02/23/25 14:35 02/23/25 14:39 Hydromorphone Hcl Inj (*Crx) 2 Mg/Ml Vial IV PUSH 0.5 mg Q3H PRN Administration Breakthrough Pain Sodium Chloride 1,000 mls @ 100 mls/hr 02/23/25 11:40 02/24/25 07:31 Normal Saline Iv IV CONT 100 mls/hr .Q10H JIMBO Administration Levofloxacin/Dextrose 750 mg in 150 mls @ 100 mls/hr 02/24/25 09:00 02/24/25 09:00 Levaquin 750 Mg/D5w 150 Ml IVPB Infused Q24H JIMBO Infusion Oxybutynin Chloride 5 mg 02/23/25 17:00 02/24/25 11:59 Oxybutynin Chloride 5 Mg Tablet PO 5 mg TID JIMBO Administration Oxycodone/Acetaminophen 1 tab 02/23/25 22:00 02/24/25 04:07 Oxycodone/Acetaminophen (*Crx) 10-325 Mg Tablet PO 1 tab Q4H PRN Administration Pain Rated 7-10 Phenazopyridine HCl 200 mg 02/23/25 17:00 02/24/25 11:59 Phenazopyridine Hcl 100 Mg Tablet PO 200 mg TIDWM JIMBO Administration Prednisone 5 mg 02/23/25 15:20 02/24/25 07:31 Prednisone 5 Mg Tablet PO 02/25/25 09:01 5 mg DAILY JIMBO Administration Prochlorperazine Edisylate 10 mg 02/23/25 11:39 Prochlorperazine Edisylate 10 Mg/2 Ml Vial IV PUSH Q6H PRN Nausea And Vomiting Tamsulosin HCl 0.4 mg 02/23/25 17:00 02/23/25 16:20 Tamsulosin Hcl 0.4 Mg Capsule PO 0.4 mg QPM JIMBO Administration Radiology Results: ITS Impressions Abdomen/Pelvis CT 02/23/25 08:44 Impression: Status post left ureteral stent placement. 7 mm present in the left renal pelvis. Minimal fullness of the left ureter. Hazy infiltrative change in the peripancreatic region and retroperitoneum. This could be related to left renal stone and/or stent placement. Correlate for any possibility of pancreatitis. Abdomen X-Ray 02/24/25 09:59 IMPRESSION: Nonspecific, nonobstructive bowel gas pattern. Projecting over the left renal pelvis on today's study, the proximal pigtail portion of the double-J stent is visualized, without definitive detail to suggest the presence of previously identified stone fragments. Labs Labs: Laboratory Results - last 24 hr 02/23/25 02/24/25 02/24/25 08:41 05:29 05:30 WBC 6.6 RBC 4.74 Hgb 13.8 Hct 42.8 MCV 90.3 MCH 29.1 MCHC 32.2 RDW 13.5 Plt Count 177 MPV 12.4 H Sodium 139 Potassium 3.9 Chloride 109 H Carbon Dioxide 23 Anion Gap 7 BUN 9 Creatinine 0.80 Estim Creat Clear Calc 93 Estimated GFR > 60 Glucose 87 Calcium 8.5 Magnesium 2.2 Total Bilirubin 1.3 AST 21 ALT 70 H Alkaline Phosphatase 78 Total Protein 6.0 L Albumin 3.5 Lipase 36 18 L Quality VTE Prophylaxis VTE prophylaxis: mechanical ordered Hospitalist [facility] Advance Care Plan I have confirmed that the patient's Advanced Care Plan is present, code status is documented, or surrogate decision maker is listed in patient medical record.: Yes
[2025-02-24] MEDS: TAMSULOSIN HCL 0.4 MG CAPSULE PO (16:44)
[2025-02-24 21:31] VITALS: BP 148/70; PULSE 65; RESP 18; TEMP 36.1; O2SAT 95
[2025-02-25] MEDS: oxyCODONE/ACETAMINOPHEN (*CRX) 10-325 MG TABLET 1 TAB PO (05:09)
[2025-02-25 05:17] VITALS: BP 147/71; PULSE 60; RESP 16; TEMP 36.6; O2SAT 100
[2025-02-25] MEDS: HYDROmorphone HCL INJ (*CRX) 2 MG/ML VIAL 0.5 MG IV PUSH (07:02)
[2025-02-25] MEDS: oxyBUTYnin CHLORIDE 5 MG TABLET PO ×2 (09:46→12:26)
[2025-02-25] MEDS: PHENAZOPYRIDINE HCL 100 MG TABLET 200 MG PO ×2 (09:46→12:26)
[2025-02-25] MEDS: CITALOPRAM HYDROBROMIDE 10 MG TABLET 30 MG PO (09:46)
[2025-02-25] MEDS: predniSONE 5 MG TABLET PO (09:46)
[2025-02-25] MEDS: levoFLOXacin 750 MG/D5W 150 ML 750 MG/150 ML BAG 100 MG IVPB (09:47)
[2025-02-25 09:50] VITALS: O2SAT 100
[2025-02-25] MEDS: GABAPENTIN 300 MG CAPSULE PO (09:50)
[2025-02-25 10:53] LABS: Hematocrit 42.7 % (37.0-47.0); Hemoglobin 13.7 g/dL (12.0-15.0); Mean Corpuscular HGB Conc 32.1 g/dl (32-36); Mean Corpuscular Hemoglobin 29.3 pg (26-34); Mean Corpuscular Volume 91.4 fl (80-100); Mean Platelet Volume 12.4 fl (7.4-10.4); Platelet Count Result 186 k/mm3 (150-375); Red Blood Count 4.67 M/mm3 (4.2-5.4); Red Cell Distribution Width 13.7 % (11.5-14.5); White Blood Count 7.7 K/mm3 (4.5-10.0)
[2025-02-25 11:07] LABS: Alanine Aminotransferase 54 U/L (6-35); Albumin Level 3.5 g/dL (3.5-5.1); Alkaline Phosphatase 74 U/L (38-126); Anion Gap 9 mmol/L (4-12); Aspartate Amino Transferase 21 U/L (14-36); Bilirubin,Total 0.9 mg/dL (0.2-1.3); Blood Urea Nitrogen 11 mg/dL (7-17); Calcium 8.7 mg/dL (8.4-10.2); Carbon Dioxide 24 mmol/L (22-30); Chloride 105 mmol/L (98-107); Estimated CRCL calculation 84 ml/min; Estimated Glomerular Filt Rate > 60; Glucose 125 mg/dL (65-110); Potassium 3.4 mmol/L (3.4-5.0); Sodium 138 mmol/L (137-145)
--- NOTE | 2025-02-25 14:03 | P.DS_ITS ---
DS: Admitting Diagnosis Discharge Date 02/25/2025 Admitting Diagnosis Left renal calculus/UTI DS: Discharge Diagnosis Discharge Diagnosis (1) Complicated urinary tract infection: Code(s): N39.0 - Urinary tract infection, site not specified Status: Acute (2) Left renal stone: Code(s): N20.0 - Calculus of kidney Status: Acute (3) Hematuria: Code(s): R31.9 - Hematuria, unspecified Status: Acute (4) Abnormal finding on CT scan: Code(s): R93.89 - Abnormal findings on diagnostic imaging of other specified body structures Status: Acute (5) Elevated LFTs: Code(s): R79.89 - Other specified abnormal findings of blood chemistry Status: Acute Plan Disposition: Discharged to home DS: Summary Hospital Course Reason for hospitalization: Left renal calculus/UTI Hospital Course: Admission: Patient was a 49-year-old female with history of kidney stones, hiatal hernia status post laparoscopic repair, gastroesophageal reflux disease, irritable bowel syndrome, fibromyalgia, and anxiety who presented to the emergency department with complaints of left-sided pain and blood in urine. She was seen in the emergency department on Thursday for severe left-sided flank pain, nausea, vomiting, and dysuria and was found to have an 8 mm stone in the left ureteropelvic junction. She was taken to OR the following day for cystoscopy with left retrograde pyelogram and left ureteral stent placement and was discharged home with prescriptions for cefdinir and oxybutynin; urine culture grew mixed genital shanique not indicative of acute urinary tract infection. Unfortunately her pain continues and is much worse today and she was re-admitted for pain control. She has notice blood in the urine and reports dysuria. Appetite has not been great and she has had nausea and dry heaves. She does not think that she has passed the stone. No fever, chest pain, shortness of breath, vomiting, or diarrhea. In the ED: Blood pressure on arrival was 171/95. The remainder of her vital si gns were stable. Labs were significant for WBC count 9.9, hemoglobin 15.3, carbon dioxide 19, anion gap 13, total bilirubin 1.6, ALT 89. Urinalysis was grossly bloody with 4+ protein, 3+ blood, 2+ bilirubin, positive nitrates, 2+ leukocyte esterase, greater than 100 RBC, 21 to 50 WBC. Occasional squamous cells and rare bacteria were seen on microscopy. CT scan showed the left ureteral stent in place with a 7 mm stone in the left renal pelvis and hazy infiltrative change in the peripancreatic region and retroperitoneum which could be related to the renal stone and or for stent placement, correlate for possible pancreatitis. Hospital course: Patient was admitted for further pain control due to recent ureteral stent placement to contend to irritation this a urea hematuria. Urology was consulted recommended to continue oral antibiotic therapy fortunately UA showed normal shanique the patient had been receiving oral antibiotics outpatient likely could be complicated due to management of stone. Urology did also add Flomax and Pyridium to help with stent irritation she was continued on her oxybutynin. Patient did undergo a KUB with plans ureters be or EWSL planned outpatient 03/01/2025. Patient had improvement symptoms with additional drug therapy. Patient was then discharged instructed to continue oxybutynin Flomax and Pyridium as well as encouraged to increase her oral hydration. Is also instructed to complete her oral antibiotic therapy of cefdinir since UA culture showed normal shanique. Patient with improvement to symptoms was discharged home plans for follow-up on patient. Status at Discharge Functional status at discharge: independent ambulation Overall status at discharge: patient is back to baseline Time Spent with Patient Time attestation: Total time spent providing and/or coordinating discharge services: Exam Narrative: General: NAD Neck: Supple. Respiratory: Lungs are clear to auscultation bilaterally. Cardiovascular: Regular rate and rhythm with S1-S2. Gastrointestinal: Abdomen is soft and nondistended with active bowel sounds. Skin: Warm and dry. No rash or lesions on limited exam. Extremities: No cyanosis, clubbing, or edema. Neurological: Alert. Psychiatric: Pleasant and cooperative DS: Data Data Completed and Pending Labs on day of discharge: Labs from last 24 hours 02/25/25 10:28 WBC 7.7 RBC 4.67 Hgb 13.7 Hct 42.7 MCV 91.4 MCH 29.3 MCHC 32.1 RDW 13.7 Plt Count 186 MPV 12.4 H Sodium 138 Potassium 3.4 Chloride 105 Carbon Dioxide 24 Anion Gap 9 BUN 11 Creatinine 0.89 Estim Creat Clear Calc 84 Estimated GFR > 60 Glucose 125 H Calcium 8.7 Total Bilirubin 0.9 AST 21 ALT 54 H Alkaline Phosphatase 74 Total Protein 6.0 L Albumin 3.5 Imaging Radiologist's impression: Non-contrast CT scan of the Abdomen and Pelvis Clinical indication: Kidney stone Technique: 2.5 mm axial scans were obtained through the abdomen and pelvis without intravenous or oral contrast. Dose reduction technique was used on this scan by utilizing automated exposure control and iterative reconstruction technique. The dose-length product (DLP) was 686.92 mGy-cm. COMPARISON: 02/19/2025 Findings: Images through the lung bases reveal small left pleural effusion. There is a 7 mm stone in the left renal pelvis, with left ureteral stent in place. There is minimal fullness of left ureter. No right renal or right ureteral stone. No right hydronephrosis. There is mild hazy/infiltrative change in the peripancreatic region extending into the lower retroperitoneum. The liver, spleen, pancreas, gallbladder, and adrenals appear normal. There is no aortic aneurysm. There is no evidence of bowel obstruction. Images through the pelvis were performed. There is no evidence of ascites or lymphadenopathy. Urinary bladder otherwise unremarkable. No pelvic mass seen. No ascites. Impression: Status post left ureteral stent placement. 7 mm present in the left renal pelvis. Minimal fullness of the left ureter. Hazy infiltrative change in the peripancreatic region and retroperitoneum. This could be related to left renal stone and/or stent placement. Correlate for any possibility of pancreatitis. Exam: Abdomen 1V HISTORY: Left kidney stone position COMPARISON: Reference is made to CT examination of the abdomen and pelvis dated 02/23/2025 (approximately 24 hours earlier) TECHNIQUE: Supine images of the abdomen FINDINGS: Bowel gas pattern is non-obstructive. There is no free air or deep sulci. At the time of previous CT examination, the stone fragments were visualized within the left renal pelvis. Projecting over the left renal pelvis on today's study, the proximal pigtail portion of the double-J stent is visualized, without definitive detail to suggest the presence of previously identified stone fragments. No abnormal calcifications detected along the course of the double-J stent Stable phleboliths within the left hemipelvis. Lung bases are unremarkable. Bones and soft tissues are unremarkable. IMPRESSION: Nonspecific, nonobstructive bowel gas pattern. Projecting over the left renal pelvis on today's study, the proximal pigtail portion of the double-J stent is visualized, without definitive detail to suggest the presence of previously identified stone fragments. Discharge Plan Discharge Attending physician on discharge: Sagar Gonzalez Consulting providers: Sylvester Granados; Faye Ferrara Discharging Clinician: Faye Ferrara Anticipated Discharge Date/Time: 02/25/25 09:44 Patient Disposition: Home Activity: may shower and as tolerated Diet: as tolerated Discharge Instructions: Left renal stone with stent placement: * Urine culture did not grow any bacteria but I will have you continue the Cefdinir you were on at home please complete therapy * ESWL vs ureteroscopy next week with urology * May continue to use oxybutynin, tamsulosin, and Pyridium for stent discomfort How can you care for yourself at home? ? Keep track of any new symptoms or changes in your symptoms. ? Rest until you feel better. ? Be safe with medicines. Take your medicines exactly as prescribed. Call your doctor if you think you are having a problem with your medicine. ? Do not drive after taking a prescription pain medicine. ? Ensure to follow-up with primary care physician as indicated and provide updated medication list provided to you at discharge. When should you call for help? Call 911 anytime you think you may need emergency care. For example, call if: ? You passed out (lost consciousness). Call your doctor now or seek immediate medical care if: ? You have new symptoms like fever, difficulty breathing, Chest pain, vomiting, or rash. ? You have new or different pain. ? You are confused and are having trouble thinking clearly. ? Your symptoms are getting worse. Watch closely for changes in your health, and be sure to contact your doctor if: ? You do not get better as expected. Patient Instructions: Antibiotic Form Patient Language: Uzbek Stand Alone Forms: General Discharge Information Follow-up/Referrals: Sylvester Granados MD [Physician] - Keep Reg. Scheduled Appt. Discharge Medications: New oxycodone-acetaminophen 10-325 mg Tablet 1 tablet PO Q6H PRN (Reason: Pain Rated 7-10) Qty: 20 0RF tamsulosin 0.4 mg Capsule 0.4 mg PO QPM Qty: 30 0RF phenazopyridine 100 mg Tablet 200 mg PO TIDWM Qty: 30 0RF Continued Aimovig Autoinjector 140 mg/mL auto-injector 140 mg subcut MONTHLY Qty: 1 12RF Patient Comments: Was supposed to start today patient states she will wait for now sumatriptan succinate 50 mg tablet 100 mg PO ONCE PRN (Reason: migraine headache) Qty: 10 6RF Rx Instructions: take at onset of a migraine benzonatate 100 mg capsule 100 mg PO TID PRN (Reason: cough) Qty: 30 0RF gabapentin 300 mg capsule 300 mg PO TID PRN (Reason: pain) MEDICAL MARIJUANA 100 mg PO HS oxybutynin chloride 5 mg Tablet 5 mg PO TID Qty: 30 0RF cefdinir 300 mg capsule 300 mg PO Q12H Qty: 10 0RF citalopram 20 mg tablet 30 mg PO DAILY Qty: 135 1RF Discontinued prednisone 20 mg tablet 10 mg PO DAILY Rx Instructions: 2 tablets daily x 3 days, 1.5 tablets daily x 3 days, 1 tablet daily x 3 days, 1/2 tablet daily x 3 days . PT IS ON 1/2 TABLET DOSE STARTING TODAY 02/23/25 Date of admission: 02/23/25 11:39 Primary Care Provider: Nancy Baker Admitting Provider: Taj Galloway Attending physician on admission: Wendy Villa Condition: Stable Quality VTE Prophylaxis VTE prophylaxis: mechanical ordered -Patient's previous records reviewed on admission -ER notes reviewed in detail on admission -discussed all findings and current treatment plan with patient/Family/POA -Consultations reviewed for recommendations -Patient's disposition for safe discharge discussed with case investigator Dictation performed by [employer] direct speech recognition software, therefore web ui designer variants and typographical errors may occur. Hospitalist MIPS Heart Failure (Exclusion) Patient has history of Heart Transplant or Left Ventricular Assistive Device?: No IF YES, STOP HERE Heart Failure (Qualifier) Patient has current or prior documentation of LVEF less than or equal to 40%, or mod/servere depressed LVSF?: No IF NO, STOP HERE
[2025-02-25 14:10] VITALS: BP 128/69; PULSE 69; RESP 16; TEMP 36.2; O2SAT 99
== END 2025-02-25 14:28 | disposition home or self-care (01) ==
LOC: ANHED 11:05 → ANH3MED 02-24 07:22
PROVIDERS: Physician Assistant; Admitting Provider Hospitalist; Emergency Provider Emergency Medicine; PCP Nurse Practitioner Family; Visit Provider Nurse Practitioner Family
DX: N20.0 Calculus of kidney (principal); N39.0 Urinary tract infection, site not specified; R31.9 Hematuria, unspecified; Z97.8 Presence of other specified devices; R93.89 Abnormal findings on diagnostic imaging of other specified body structures; R79.89 Other specified abnormal findings of blood chemistry; K21.9 Gastro-esophageal reflux disease without esophagitis; K58.9 Irritable bowel syndrome, unspecified; M79.7 Fibromyalgia; F41.9 Anxiety disorder, unspecified; Z87.891 Personal history of nicotine dependence; Z98.1 Arthrodesis status; Z98.890 Other specified postprocedural states; Z79.899 Other long term (current) drug therapy
CPT/HCPCS: 36415; 74018; 74176; 80053; 81001; 83690; 83735; 85025; 85027; 87086; 96361; 96365; 96366; 96375; 96376; 99285; A9270; G0378; J0780; J1171; J1956; J7030; J7512

== ENCOUNTER 2025-03-02 02:37 | Day surgery (SDC) | payer BC, SELFPAY ==
[2025-02-27 08:51] VITALS: BMI 38.0
--- NOTE | 2025-02-27 08:52 | PC.NURSE ---
Report to the Outpatient Waiting Room, entrance under the green pavilion located off [facility], at time _1000_ on date _[id number]_. Planned Procedure Time: _1200_.? Time changes happen often and if your time is changed the preop area will call you the afternoon before. - You and your visitor will be asked to self-screen and do not enter if you have any COVID symptoms. Please call surgeon if you need to reschedule. - A mask is optional within the hospital at this time. Patients may have clear liquids (water, carbonated beverages, clear teas, apple juice) until 3 hours prior to surgery with a maximum of 20 ounces. - No food from midnight until time of surgery and no smoking, or chewing tobacco (or any form of nicotine). No chewing gum, candy or mints. Take only the following medications with a SIP of water on the morning of surgery: __Citalopram and if needed Oxycodone.___ DO NOT STOP ANY OF YOUR OTHER PRESCRIPTION MEDICATIONS PRIOR TO SURGERY EXCEPT THE FOLLOWING Hold all vitamins and supplements for 3 days per anesthesiologist. Medications to discontinue per physician Date to take last dose Please no make-up, nail sami, hairspray, perfume, deodorant, or body powder the day of surgery.? No jewelry (including any body piercings) or valuables the day of surgery, leave them at home.? Please take a shower or bath the night before, or the morning of, surgery with an antibacterial soap.? Wear comfortable, loose fitting clothing. - Jewelry must be removed prior to entering the operating room.? Rings and piercings that are not removed may be cut off. - The hospital will not accept responsibility for valuables.? - Please leave all valuables, including medications, at home the day of surgery. If you are going home after surgery, a licensed hydraulic lift driver must drive you home.? - NO public transportation without another adult if you receive anesthesia. - We recommend that an adult stay with you for 24 hours following discharge. - We also recommend that you do not drive, make important decision, drink alcoholic beverages, or take any drugs that were not prescribed by your health care provider for at least 24 hours after your discharge time. Follow any additional instructions given to you from your surgeon. Telephone instructions given to __Josefrosamaria__and asked if any additional questions and then verbalized understanding. Patient advised to call surgeon office or pre surgery nurse liaison [phone] if any additional questions.
[2025-03-02] VITALS (13 sets, daily range): BP systolic 108–150; BP diastolic 59–90; PULSE 77–100; RESP 10–18; TEMP 36.2–37.1; O2SAT 91–99
--- NOTE | ~2025-03-02 | XR_ITS ---
EXAMINATION: XR retrograde pyelo w/stent LT DATE: 03/02/2025 11:45 INDICATION: Left internal ureteral stent placement TECHNIQUE: Fluoroscopic images from a left internal ureteral stent placement are submitted for review . 30 seconds of fluoroscopy time. FINDINGS: There is a left double-J internal ureteral stent projecting in expected position, with proximal [place] loop at the level of the renal pelvis and distal loop in the pelvis within the bladder lumen. IMPRESSION: 1. Left internal ureteral stent placement. Please refer to real-time procedural findings for detail s. Reviewed, dictated and finalized at location A. IMPRESSION: 1. Left internal ureteral stent placement. Please refer to real-time procedur al findings for details.
--- OUTSIDE RECORDS SUMMARY | 2025-03-02 02:40 | XMS_ITS | Continuity of Care Document ---
Author Organization [facility] Address [address] [place] [address] Phone Care Team Providers Care Associate Professor Of Automation Name Role Phone Zambrano OD, Raghav Unavailable Unavailable Advance Directives Directive Yes / No Effective Date File Name No Information Encounters Encounter Description Practice Location Reason(s) For Visit Diagnoses Date Provider Providers Copied on Encounter [facility], [address], [place], [place], [id number], [place] tel:[phone] [facility] [place] No Information Dec-1 4-200 5 Zambrano OD Raghav. [address] [place] , [address], [place], [address], [place]. tel:[phone] Family History Family Member Type Diagnosis Age At Onset No Information Payers Payer name Insurance type Covered constitution party ID Authoriza tion(s) No Information Social [...]
--- OUTSIDE RECORDS SUMMARY | 2025-03-02 02:40 | XMS_ITS | Clinical Summary ---
Author Organization [facility] Address [facility] [place] [address] Care Team Providers Care Claims Collector Name Role Phone Nancy Baker RN OBSERVATION Primary Care Provider [phone] Allergies Active Allergy Reactions Criticality Noted Date [...] the left lateral decubitus position, the Olympus [id number] endoscope was used to easily intubate the [...] the left lateral decubitus position, the Olympus [id number] colonoscope was introduced into the rectum and [...] Relevant to Health Maintenance Insurance Care Teams Claims Collector Relationship Specialty Start Date End Date Nancy Baker FNP [address] [place] [id number] PCP - General Nurse Practitioner Family 10/19/24
--- OUTSIDE RECORDS SUMMARY | 2025-03-02 02:40 | XMS_ITS | Continuity of Care Document ---
Author Organization [facility] Address [address] [place] [address] Phone Care Team Providers Care Waste Reduction Coordinator Name Role Phone Beth Henriquez NP Unavailable [...] Diagnoses Date Provider Providers Copied on Encounter [facility], [address], [place], [place], [facility], tel:[phone] [place] No Information Jul- 2 Bonnieanjel Campos. [address] [place] [address], [place], [place], [id number], . tel:[phone] OFFICE/OUTPAT IENT VISIT, EST [facility], [address], [facility], tel:[phone] [place] follow up (chief complaint) Rheumatism, unspecified and fibrositisCe rvicalgiaLow back painFatigue / MalaiseEncou nter for therapeutic drug monitoringUn specified vitamin d deficiency 5 Lucho Pantera. [address], [facility] [address], [place], [address], [place]. tel:[phone] Referring Provider: Faye Verdin, [address] [place], [place] [id number], [place], [address]. tel:[phone] OFFICE CONSULTATION [facility], [address], [place], [place], [facility], tel:[phone] [place] generalized pain and fatigue (chief complaint) CervicalgiaL ow back painRheumati sm, unspecified and fibrositisFa tigue / MalaiseEncou nter for therapeutic drug monitoring 0 5 [place] Pantera. [address], [place], [address], [place]. tel:[phone] Referring Provider: Faye Verdin, [facility] [facility] [address], [place], [address]. tel:[phone] Family History Family Member Type Diagnosis Age [...] Order Fo ot X-ray; Limited (2 views) (14849), Ordered on: Ordered Future Order: Radiology Order Dill nd X-ray; Limited (2 views) ([id number]), Collected on: Ordered History Of Present Illness Encounter Date Complaint History Of Prese nt Illness follow up generalized pain and fatigue Functional Status Date Functional Assessmen t No Information Instructions Date Instruction Additional Infor mation No Information Assessments Type Assessment Date No Information Patient Care Teams Name Effective Dates (start - stop) Status Members No Information
--- OUTSIDE RECORDS SUMMARY | 2025-03-02 02:40 | XMS_ITS | Clinical Summary ---
Author Organization [facility] Address [address] [facility] [place] [address] Care Team Providers Care Packaging Design Engineer Name Role Phone Jose Angel Zuleta MD Primary Care Provider [phone] Source Comments [facility],non-owned Affiliates and Associated Physician Practices is amultiple site organization consisting of ambulatory clinics and hospital sitesin [place], [place], [place] and [place]. This disclosure is being madepursuant to the Care Everywhere program and may not contain all information available regarding this patient. Last updated 18.[facility] Allergies Active Allergy Reactions Criticality Noted Date [...] on file Legal Sex Female 6:33 AM CHINESE HERBALIST Gender Identity Not on file Sexual Orientation Not on file Last Filed Vital Signs Vital Sign Reading Time Taken Comments Blood Pressure 126/84 12/30/2018 10:51 AM CHINESE HERBALIST Pulse 74 12/30/2018 10:51 AM CHINESE HERBALIST Temperature 37 C (98.6 F) 12/30/2018 10:51 AM CHINESE HERBALIST Respiratory Rate 16 12/30/2018 10:51 AM CHINESE HERBALIST Oxygen Saturation 96% 12/30/2018 10:51 AM CHINESE HERBALIST Inhaled Oxygen Concentration - - Weight 112.9 kg (249 lb) 12/30/2018 10:51 AM CHINESE HERBALIST Height 167.6 cm (5' 6 ) 12/30/2018 10:51 AM CHINESE HERBALIST Body Mass Index 40.19 12/30/2018 10:51 AM CHINESE HERBALIST Plan of Treatment Health Maintenance Due Date [...] complete this topic Insurance NAVEED Care Teams Packaging Design Engineer Relationship Specialty Start Date End Date Jose Angel Zuleta MD [address] [place] [address] PCP - General Family Medicine 12/30/18
--- OUTSIDE RECORDS SUMMARY | 2025-03-02 02:41 | XMS_ITS | Referral Summary ---
Author Organization [facility] Address [address] [place] [address] Care Team Providers Care Manager Programming Name Role Phone Nancy Baker NP Primary Care Provider [phone] Allergies Active Allergy Reactions Criticality Noted Date [...] on file Legal Sex Female 1:47 PM ALGEBRA TEACHER Gender Identity Not on file Sexual Orientation Not on file Last Filed Vital Signs Vital Sign Reading Time Taken Comments Blood Pressure 151/77 11/30/2024 12:54 PM ALGEBRA TEACHER Pulse 76 11/30/2024 12:54 PM ALGEBRA TEACHER Temperature - - Respiratory Rate 20 11/30/2024 12:54 PM ALGEBRA TEACHER Oxygen Saturation - - Inhaled Oxygen Concentration - - Weight 113.4 kg (250 lb) 11/30/2024 12:54 PM ALGEBRA TEACHER Height 167.6 cm (5' 6 ) 11/30/2024 12:54 PM ALGEBRA TEACHER Body Mass Index 40.35 11/30/2024 12:54 PM ALGEBRA TEACHER Plan of Treatment Not on file Insurance ANTHEM ACCESS ANTHEM ACCESS Care Teams Manager Programming Relationship Specialty Start Date End Date Nancy Baker NP [address] [place] [id number] PCP - General Nurse Practitioner 11/30/24
--- OUTSIDE RECORDS SUMMARY | 2025-03-02 02:41 | XMS_ITS | Clinical Summary ---
Author Organization [facility] Address [address] [place] [address] Care Team Providers Care Station Helper Name Role Phone Nancy Baker NP Primary Care Provider [phone] Allergies Active Allergy Reactions Criticality Noted Date [...] 2 (two) times a day 4 Active Surgical History Surgery Date Site/Laterality Comments COLONOSCOPY [...] on file Legal Sex Female 1:47 PM VENDING MACHINE REFILLER Gender Identity Not on file Sexual Orientation Not on file Obstetrics History Last Filed Vital Signs Vital Sign Reading Time Taken Comments Blood Pressure 151/77 11/30/2024 12:54 PM VENDING MACHINE REFILLER Pulse 76 11/30/2024 12:54 PM VENDING MACHINE REFILLER Temperature - - Respiratory Rate 20 11/30/2024 12:54 PM VENDING MACHINE REFILLER Oxygen Saturation - - Inhaled Oxygen Concentration - - Weight 113.4 kg (250 lb) 11/30/2024 12:54 PM VENDING MACHINE REFILLER Height 167.6 cm (5' 6 ) 11/30/2024 12:54 PM VENDING MACHINE REFILLER Body Mass Index 40.35 11/30/2024 12:54 PM VENDING MACHINE REFILLER Plan of Treatment Health Maintenance Due Date Last Done Comments Breast Cancer Screening-Mammogram 1974 Colon Cancer Screening-Colonoscopy 1974 Depression Screening 1974 Hepatitis C Screening 1974 DTaP/Tdap/Td Vaccine (1 - Tdap) 1985 Hepatitis B Screening 1992 Regular Well Visit/Exam 18-64 1992 Covid-19 Vaccine (4 - 2023-2 5 season) 2024 12/28/2021, 02/01/2021, 01/11/2021 Zoster Vaccine (1 of 2) 2024 Influenza Vaccine (Season Ended) 2025 Pneumococcal vaccine <65 Aged Out No longer eligible based on patient's age to complete this topic Insurance [employer] ANTHEM ACCESS Member Subscriber Plan / Payer (Ef fective 2024-Present) Name:Mikael Dagoberto K. Relation to Subscriber:Spouse Name:DAGOBERTO YOUSSEF Date of :1974 (Home) Address: [address] [place] [address] Payer ID:[id number] (NAIC) Type:BC ALLIANCE Address: [facility] [address] [place] [id number] Care Teams Station Helper Relationship Specialty Start Date End Date Nancy Baker NP [address] [place] [id number] PCP - General Nurse Practitioner 11/30/24
--- NOTE | 2025-03-02 06:30 | WPDHPUPDATE1 ---
History and Physical Update Update Date/Time: 03/02/25 06:30 History and Physical has been reviewed, including an updated exam of the patient. There are NO changes in the patient's condition. Risks, benefits, and alternatives have been discussed and questions answered. Patient agrees to proceed with procedure.
--- NOTE | 2025-03-02 10:15 | WPDANESEPPF ---
Anes - Initial Pre Proc Eval Procedure: Operation Date: 03/02/25 12:00 Proposed Procedures p Cystoscopy, Left Ureteroscopy, Holmium Laser Lithotripsy, Left Stone Extraction, Possible Left Retrograde Pyelogram, Left Stent Replacement - Sylvester Granados MD Date/Time: 03/02/25 10:15 Surgeon: Sylvester Granados MD Pre Op Diagnosis: Ureteral Stone Patient Data Age: 49 Gender: F Height: 1.68 m Weight: 106.8 kg Allergies Allergy/AdvReac Type Severity Reaction Status Date / Time amoxicillin Allergy Severe Hives Verified 02/27/25 14:32 Penicillins Allergy Unknown Hives Verified 02/27/25 14:32 codeine AdvReac Unknown Palpitation Verified 02/27/25 14:32 s ondansetron AdvReac Unknown violent Verified 02/27/25 14:32 vomiting Home Medications ?Medication ?Instructions ?Recorded ?Confirmed ?Type erenumab-aooe 140 mg/mL 140 mg subcut MONTHLY #1 mL 07/19/24 02/27/25 Rx subcutaneous auto-injector (Aimovig Autoinjector) sumatriptan succinate 50 mg tablet 100 mg (2 x 50 mg) PO ONCE PRN 07/19/24 02/27/25 Rx migraine headache #10 tabs citalopram 20 mg tablet 30 mg (1.5 x 20 mg) PO DAILY #135 12/14/24 02/27/25 Rx tabs MEDICAL MARIJUANA 100 mg PO HS PAIN 01/17/25 02/27/25 History gabapentin 300 mg capsule 300 mg PO TID PRN pain 01/17/25 02/27/25 History benzonatate 100 mg capsule 100 mg PO TID PRN cough #30 caps 02/13/25 02/27/25 Rx cefdinir 300 mg capsule 300 mg PO Q12H #10 caps 02/20/25 02/27/25 Rx oxybutynin chloride 5 mg tablet 5 mg PO TID #30 tabs 02/20/25 02/27/25 Rx oxycodone-acetaminophen 10 mg-325 1 tablet PO Q6H PRN Pain Rated 02/25/25 02/27/25 Rx mg tablet 7-10 #20 tabs phenazopyridine 100 mg tablet 200 mg (2 x 100 mg) PO TIDWM #30 02/25/25 02/27/25 Rx tabs tamsulosin 0.4 mg capsule 0.4 mg PO QPM #30 caps 02/25/25 02/27/25 Rx Patient hx anesthesia problems: none Family hx anesthesia problems: none Results Review: All pre-operative results and documents have been reviewed as part of the pre-operative evaluation. COUNT INCLUDES THE [facility] Past Medical History Medical History ) Colon polyps Gastroesophageal reflux disease Irritable bowel syndrome Insomnia Kidney stones Headache, migraine Anxiety Fibromyalgia Surgical History Surgical History ) History of colonoscopy with polypectomy History of cystoscopy History of placement of ureteral stent History of removal of cyst (2010) right breast History of lumbar fusion (2015) L5-S1 History of fusion of cervical spine (2014) C4-C5 History of section 1999, 2007, 2009 History of tubal ligation (2009) History of hysterectomy History of repair of hiatal hernia (01/25/25) robotic laparoscopic repair hiatal hernia with partial fundoplication per Dr. Melara History of surgery on left wrist (1993) reconstructive bone placement with k-wires [place] teeth extracted (1990) History of tonsillectomy (1983) Family History Family History ) Father Hypertension Mother Thyroid disorder Sibling Depression Anxiety Grandparent Breast cancer Diabetes mellitus Brain cancer Leukemia Social History Social History ) Social History: 02/21/25 patient declined SDOH Surrogate medical decision maker: Minor Youssef, spouse. Code status: Full code. Smoking packs per day: 1 Smoking cigarettes per day: 20.0 Years smoked: 15 Smoking pack-years: 15.00 Smoking status: Former smoker Tobacco type: cigarettes Smoking end date: 02/27/14 Alcohol intake: never Substance use: former Substance use type: marijuana Other substance usage details: Medical marijuana Do You Feel Safe in your Home?: Yes Lack of Transportation: No Lack of Food: Never True Current Housing: I Have Housing Concerned About Future Housing: Decline to Answer Difficulty Paying Gas/Electric Bills: Decline to Answer Difficulty Paying for Meds: Decline to Answer Currently Unemployed: Decline to Answer Difficulty w/ Childcare or Family Care: Decline to Answer Living arrangements: with family Occupation/Education: other Spiritual care concerns: No Agree to blood products: Yes Ellis - Ruma Final PreProcedure Day of Procedure 03/02/25 10:15 Patient weight: obese Heart: regular rate and rhythm Lungs: clear to auscultation Airway: Mallampati scale class III Neurological: alert and oriented Last oral intake: >/= 8 hours ASA classification: III Emergent: no Anesthetic plan: proceed Anesthesia type and monitoring: general LMA and standard monitoring Results Review: All pre-operative results and documents have been reviewed as part of the pre-operative evaluation. Informed Consent: The patient's anesthetic plan and its attendant risks and benefits were discussed with the patient/family/POA. Questions were solicited and answers provided to the satisfaction of the patient/family/POA.
[2025-03-02] MEDS: LACTATED RINGERS 1,000 ML 30 ML IV CONT ×2 (10:33→12:30)
[2025-03-02] MEDS: ceFAZolin 2 GM/D5W 50 ML 2 GM/50 ML BAG IVPB (10:52)
--- NOTE | 2025-03-02 11:58 | W.PM.PROC2 ---
Procedure Note - Detailed Date of Procedure 03/02/25 Pre-op Diagnosis Left Ureteral Stone Post-op Diagnosis Same Procedure Performed Cystoscopy, left ureteral stent removal and replacement, left ureteroscopy with laser lithotripsy, stone extraction and retrograde pyelogram Surgeon Sylvester Granados MD Anesthesia General Description of Procedure The patient was brought to the operative suite where she is prepped and draped in a routine sterile fashion while in the dorsal lithotomy position after the uneventful induction of a general LMA anesthetic. A 19F rigid cystoscope was placed in the bladder. The patient had no evidence of urethral stricture or bladder neck contracture. The bladder mucosa was endoscopically normal without hyperemia or neoplasm. There was a single, orthotopic ureteral orifice bilaterally. The tip of the indwelling left ureteral stent is grasped in the stent is removed with ease. A 0.035 glidewire was advanced into the left renal pelvis under fluoroscopy. The distal ureter was dilated with an 8F/10F ureteral dilator and a 0.035 in safety wire was placed. An 11 F/13 F ureteral access sheath was placed. Ureteroscopy was undertaken with a 7.5F flexible ureteroscope. With ureteroscopy I fractured and dusted the stone into smaller pieces using a 273micron Holmium laser fiber with the Holmium laser. I was able to then extract 5-6 pieces of any significancethe stone pieces using a 1.9F Nitinol, disposable stone basket. Due to the extent of this manipulation I did place a 4.8F double-J ureteral stent. Performed a retrograde pyelogram through the ureteral scope to ensure appropriate stent positioning. The proximal coil of the stent was confirmed to be in the renal pelvis and the distal coil in the bladder. The patient's bladder was emptied and he was taken to the recovery room having tolerated this procedure well.
[2025-03-02] MEDS: fentaNYL CITRATE INJ (*CRX) 100 MCG/2 ML VIAL 25 MCG IV PUSH ×8 (12:10→13:31)
[2025-03-02] MEDS: KETOROLAC 15 MG/ML VIAL (*BKC) IV PUSH (12:38)
[2025-03-02] MEDS: HYDROmorphone HCL INJ (*CRX) 1 MG/ML SYR 0.5 MG IV PUSH ×2 (12:44→12:50)
[2025-03-02] MEDS: oxyCODONE HCL (*CRX) 5 MG TAB IR PO (14:25)
== END 2025-03-02 15:13 | disposition home or self-care (01) ==
PROVIDERS: PCP Nurse Practitioner Family; Visit Provider Urology
PROC: (CPT 52352; principal; 2025-03-02 12:00)
DX: N20.1 Calculus of ureter (principal); Z87.891 Personal history of nicotine dependence; F12.90 Cannabis use, unspecified, uncomplicated; E66.9 Obesity, unspecified; Z68.38 Body mass index [BMI] 38.0-38.9, adult
CPT/HCPCS: 52356; 74420; 82365; 88300; A9270; C1769; C1894; C2617; J0690; J1171; J1885; J2003; J2250; J2405; J2704; J3010; J7120; Q9966